=== PATIENT | male | born 1955 | race Caucasian/White ===

== ENCOUNTER 2016-12-08 05:46 | Day surgery (SDC) | payer OTHER ==
[2016-12-08] MEDS ORDERED: SODIUM CHLORIDE 0.9% 1,000 ML IV SCH (06:00)
[2016-12-08 06:21] VITALS: PULSE 66; RESP 16; TEMP 97.9
--- NOTE | 2016-12-08 08:56 | PN ---
This is a 61-year-old gentleman who has history of paroxysmal A. fib, was seen by me in the office on November 24, started on amiodarone because he was in A. fib with a moderate rate. He was symptomatic as well. He was brought in for the electrical cardioversion electively. However, upon arrival, he was in sinus rhythm. He also complaints of having some constipation since I started him on amiodarone 200 mg t.i.d. and also he was on diltiazem. Vital signs are stable. Blood pressure is 124/70, pulse rate is about 68 per minute. S1, S2 heard normally. Lungs are clear. Abdomen and lower extremity exam is unchanged. The patient is now in sinus rhythm. Will therefore canceled electrical cardioversion. I am recommending that we discontinue diltiazem, use metoprolol tartrate 25 mg in the morning, 12.5 mg in the evening and reduce amiodarone to 200 mg b.i.d. from December 14. I will obtain a FT4, TSH, and liver panel and I will see him in the office on 12/18/2016. I discussed my thoughts in detail with the patient and and he will be discharged today and the procedure is canceled.
== END 2016-12-08 07:42 | disposition home or self-care (01) ==
LOC: CATHCVL 05:46
PROVIDERS: ATTEND Internal Medicine Interventional Cardiology
DX: I48.0 Paroxysmal atrial fibrillation (principal); Z53.8 Procedure and treatment not carried out for other reasons; E78.00 Pure hypercholesterolemia, unspecified; I10 Essential (primary) hypertension; E78.5 Hyperlipidemia, unspecified; Z82.49 Family history of ischemic heart disease and other diseases of the circulatory system; Z79.01 Long term (current) use of anticoagulants; Z79.899 Other long term (current) drug therapy; Z88.1 Allergy status to other antibiotic agents; Z87.891 Personal history of nicotine dependence
CPT/HCPCS: 84075; 84439; 84443; 84450; 84460; 93005

== ENCOUNTER → 2018-07-12 | Day surgery (SDC) | payer OTHER ==
[2018-07-08 09:03] VITALS: BMI 26.8
[~2018-07-12] MED LIST: DEXAMETHASONE SOD PHOSPHATE 10 MG/ML 1 ML VIAL IV ONE; HYDROmorphone 0.5 MG/0.5 ML SYRINGE IVP PRN; LACTATED RINGERS 1,000 ML IV SCH; LIDOCAINE 1% 20 ML VIAL (10MG/ML) FOR IV START INTRADERMA PRN; ONDANSETRON 4 MG/2 ML VIAL IVP ONE; PROPOFOL 10 MG/ML 20 ML VIAL IV ONE; SCOPOLAMINE 1.5MG/72HR PATCH TRANSDERM ONE
[2018-07-12 06:53] VITALS: TEMP 97.8
[2018-07-12 07:28] VITALS: RESP 16
--- NOTE | 2018-07-12 08:03 | CE ---
CARDIAC ELECTROPHYSIOLOGY REPORT DATE OF SERVICE: 07/12/2018. DIAGNOSIS: Persistent atrial fibrillation. CLINICAL INDICATION: Persistent atrial fibrillation, unresponsive to pharmacological efforts. CLINICAL INFORMATION: Mr. Frank Cano is a 63-year-old gentleman with a history of hypertension, hyperlipidemia, and persistent atrial fibrillation. He has been adequately anticoagulated with Eliquis 5 mg b.i.d., started on amiodarone for nearly 3 to 4 weeks at 200 mg b.i.d. and brought in for the procedure electively. The rationale, risks, benefits, options were explained to the patient. PROCEDURE NOTE: Under the influence of ultra short-acting intravenous anesthetic agent with the attendance of the anesthesiologist, a single synchronized 200 joule shock was delivered and patient converted to sinus rhythm, remained hemodynamically stable and neurologically intact. This was a successful electrical cardioversion. He will be discharged later on today and I will see him in the office at 10 a.m. on Wednesday, July 15. Same medications will be continued, which include amiodarone 200 mg b.i.d., metoprolol tartrate 25 mg in the morning, 12.5 in the evening, pravastatin and also prior to his discharge I will get electrolytes, BUN, creatinine. He also takes lisinopril 10 mg daily. Discharge instructions regarding activity, diet, medications, and appointment were given. MMODL / IJN: [id number] /
[2018-07-12 08:43] LABS: Potassium 4.8 mmol/L (3.5-5.1)
[2018-07-12 10:11] VITALS: BP 119/77; PULSE 60
== END ==
LOC: CATHCVL 06:27
PROVIDERS: ATTEND Internal Medicine Interventional Cardiology
DX: I48.1 Persistent atrial fibrillation (principal); I10 Essential (primary) hypertension; E78.5 Hyperlipidemia, unspecified; Z82.49 Family history of ischemic heart disease and other diseases of the circulatory system; Z87.891 Personal history of nicotine dependence; E78.00 Pure hypercholesterolemia, unspecified; Z79.01 Long term (current) use of anticoagulants; Z79.899 Other long term (current) drug therapy; Z88.0 Allergy status to penicillin
CPT/HCPCS: 92960; 80048; J2704

== ENCOUNTER → 2018-07-19 | Outpatient (CLI) | payer OTHER ==
[2018-07-19 09:57] LABS: HCT 46.8 % (39.0-53.0); HGB 15.5 gm/dL (13.0-17.5); MCH 31.8 pg (25.0-35.0); MCHC 33.1 g/dL (31.0-37.0); MCV 96.2 fL (80.0-100.0); Mean Platelet Volume 7.4; Platelet Count 174 k/uL (150-450); RBC 4.86 m/uL (4.30-5.90); RDW 12.3 % (11.5-15.5); WBC 7.2 k/uL (3.8-10.6)
[2018-07-19 10:15] LABS: Magnesium 2.1 mg/dL (1.6-2.3); Potassium 4.7 mmol/L (3.5-5.1)
== END | disposition home or self-care (01) ==
LOC: LABPAT 09:18
PROVIDERS: ATTEND Internal Medicine Interventional Cardiology
DX: Z01.812 Encounter for preprocedural laboratory examination (principal); I48.1 Persistent atrial fibrillation; R07.89 Other chest pain
CPT/HCPCS: 36415; 80051; 82565; 82947; 83735; 84520; 85027

== ENCOUNTER 2018-07-25 07:40 | Day surgery (SDC) | payer OTHER ==
[2018-07-20 12:46] VITALS: BMI 26.6
[~2018-07-25 07:40] MED LIST changes: +ALPRAZolam 0.25 MG TAB PO PRN; +ASPIRIN 325 MG TAB PO ONE; +ATORVASTATIN 80 MG TAB PO STA; -DEXAMETHASONE SOD PHOSPHATE 10 MG/ML 1 ML VIAL IV ONE; -HYDROmorphone 0.5 MG/0.5 ML SYRINGE IVP PRN; -LACTATED RINGERS 1,000 ML IV SCH; -LIDOCAINE 1% 20 ML VIAL (10MG/ML) FOR IV START INTRADERMA PRN; -ONDANSETRON 4 MG/2 ML VIAL IVP ONE; -PROPOFOL 10 MG/ML 20 ML VIAL IV ONE; -SCOPOLAMINE 1.5MG/72HR PATCH TRANSDERM ONE; +SODIUM CHLORIDE 0.9% 1,000 ML in EMPTY BAG 1 BAG IV ONE
[2018-07-25 08:24] VITALS: PULSE 50; TEMP 97.6
[2018-07-25] MEDS ORDERED: IV FLUID CONTINUATION 1,000 ML IV ONE (09:00)
[2018-07-25] MEDS ORDERED: MIDAZOLAM 2 MG/2 ML VIAL IV ONE (09:02)
[2018-07-25] MEDS ORDERED: LIDOCAINE 1% INJ 10MG/ML (20 ML MDV) SQ ONE (09:06)
[2018-07-25] MEDS ORDERED: fentaNYL (PF) 50 MCG/ML 2 ML AMP IV ONE (09:07)
[2018-07-25] MEDS: VERAPAMIL SYRINGE (5 MG/10 ML) INTRAARTER ONE ×2 (09:08→09:28)
[2018-07-25] MEDS ORDERED: HEPARIN SODIUM 1,000 UN/ML (10ML VL) IV ONE (09:10)
[2018-07-25] MEDS ORDERED: NITROGLYCERIN 1000MCG/10ML SYRINGE INTRACORON ONE (09:12)
[2018-07-25] MEDS ORDERED: IOPAMIDOL-370 50ML BTL INJ ONE (09:24)
[2018-07-25] MEDS ORDERED: IOPAMIDOL-370 100ML BTL INJ ONE (09:25)
[2018-07-25] MEDS ORDERED: SODIUM CHLORIDE 0.9% 1,000 ML IV SCH (10:00)
--- NOTE | 2018-07-25 11:07 | CC ---
CARDIAC CATHETERIZATION REPORT DATE OF SERVICE: 07/25/2018. PROCEDURE: Left heart catheterization, coronary angiography and left ventriculography. PERFORMED BY: Dr. Guzman Justice. Moderate conscious sedation time was 20 minutes. Patient was administered Versed and fentanyl and his oxygen saturation, hemodynamics and EKG were monitored closely. CLINICAL INFORMATION: Mr. Frank Cano is a 63-year-old gentleman with a known history of paroxysmal atrial fibrillation, hypertension, hyperlipidemia, who has had electrical cardioversion and went back again into atrial fib. Because of some chest tightness, pressure and some EKG changes after cardioversion and prior to any EP evaluation, I recommended coronary angiography. Stress test was negative before, but he had wall motion abnormalities and hypokinesia whenever he goes into atrial fib. PROCEDURE NOTE: Under local anesthesia and strict aseptic precautions, a 6-Spanish introducer was placed in the right radial artery. I used a JL3.5 and JR4 catheters and performed coronary angiography and a pigtail catheter was used to perform LV gram. The sheath was taken out and TR band applied as per protocol. The saturation of the fingers of the right hand was more than 90%. CARDIAC CATHETERIZATION FINDINGS: The left ventricular end-diastolic pressure was about 10 to 12 mmHg without any gradient across the aortic valve. CORONARY ANGIOGRAPHY FINDINGS: RIGHT CORONARY ARTERY: Dominant vessel has no significant disease in the proximal portion. There is moderate calcification in the mid portion and distally it bifurcates into PDA and PLV. Just before bifurcation there is a 70% stenosis and after bifurcation the PDA has a independent 70% to 80% stenosis and the PLV has a 50% stenosis. There is therefore a 70% distal RCA, 80% PDA lesion and also a 40% to 50% lesion in the PLV branch. This is a dominant RCA. LEFT MAIN CORONARY ARTERY: Left main trifurcates into LAD, ramus and circumflex. This is a short patent vessel with mild to moderate calcification that bifurcates into LAD and circumflex. No significant disease in the left main coronary artery. LEFT ANTERIOR DESCENDING CORONARY ARTERY: Good caliber vessel extends along the anterior wall. In the very proximal portion of the LAD, there is a very eccentric area of narrowing and this is about 70%. This eccentric lesion is significant and also is located in an area of moderate calcification and after the 70% to 75% eccentric proximal LAD lesion a small septal branch comes off and then several smaller septal branches in the vessel runs all the way to the apex and curves over the apex to supply the inferoapical portion of left ventricle. There is a ramus intermedius branch that seems to come off and has minor irregularities. No significant obstructive disease and it runs in the diagonal distribution. The ramus intermedius runs in the diagonal distribution has minor irregularities and no significant disease. LEFT POSTERIOR CIRCUMFLEX CORONARY ARTERY: Technically nondominant vessel runs in the AV groove, gives off 2 obtuse marginal branches. The first obtuse marginal has a 70% narrowing smaller in caliber and then the second obtuse marginal continues as a posterolateral branch, free of significant disease. Continuation of circumflex in the AV groove has a 50% lesion, but it is a small vessel. The circumflex therefore has an obtuse marginal lesion of 70%, but the vessel is small in caliber. The ramus intermedius is free of significant disease has minor irregularities. LEFT VENTRICULOGRAM: This was performed in 30-degree SIMPSON projection reveals a left ventricle which is of normal size, has no significant wall motion abnormality. Ejection fraction is about 60% without mitral regurgitation. FINAL IMPRESSION: This patient has a right dominant system. Distal right coronary artery disease of 70%, PDA of 80% lesion of the right coronary artery. The circumflex is nondominant, has first OM small vessel has a 70% lesion. Proximal left anterior descending artery has a 70% to 80% eccentric proximal lesion. Ramus is free of significant disease. RECOMMENDATIONS: I presented the patient with both options. Given the fact he has a proximal LAD lesion, he will probably be better off with aortocoronary bypass surgery with the SIFUENTES to LAD and 2 separate vein grafts to the RCA system and also one graft possibly to the circumflex marginal. The ramus is free of significant disease. He will be seen by Dr. Jaquez today and if he has surgery, he should also have a Maze procedure performed. I discussed my thoughts in detail with the patient and his . They were somewhat disappointed because of the findings, but I explained to them that the LV function is well preserved and he will do very well with revascularization. MMODL / IJN: [id number] /
[2018-07-25 13:37] LABS: Calcium 9.3 mg/dL (8.4-10.2); Magnesium 2.2 mg/dL (1.6-2.3); Potassium 4.6 mmol/L (3.5-5.1); Total Bilirubin 0.8 mg/dL (0.2-1.3); Total Protein 6.9 g/dL (6.3-8.2)
[2018-07-25 13:39] LABS: Basophils % (A) 0 %; Eosinophils # (A) 0.1 k/uL (0-0.7); Eosinophils % (A) 1 %; HCT 44.6 % (39.0-53.0); HGB 15.1 gm/dL (13.0-17.5); Lymphocytes # (A) 1.4 k/uL (1.0-4.8); Lymphocytes % (A) 22 %; MCH 32.8 pg (25.0-35.0); MCHC 33.9 g/dL (31.0-37.0); MCV 96.8 fL (80.0-100.0); Mean Platelet Volume 7.7; Monocytes # (A) 0.3 k/uL (0-1.0); Monocytes % (A) 5 %; Neutrophils # (A) 4.4 k/uL (1.3-7.7); Neutrophils % (A) 69 %; Platelet Count 157 k/uL (150-450); RBC 4.61 m/uL (4.30-5.90); RDW 12.2 % (11.5-15.5); WBC 6.4 k/uL (3.8-10.6)
[2018-07-25 13:47] LABS: Partial Thromboplastin Time 24.2 sec (22.0-30.0); Prothrombin Time 10.5 sec (9.0-12.0)
--- NOTE | 2018-07-25 14:53 | US ---
EXAMINATION TYPE: US carotid duplex BILAT DATE OF EXAM: 07/25/2018 COMPARISON: NONE CLINICAL HISTORY: PreOp Cardiac Surgery. Pre op cardiac surgery, dizziness EXAM MEASUREMENTS: RIGHT: Peak Systolic Velocity (PSV) cm/sec ----- Right CCA: 97.4 ----- Right ICA: 97.4 ----- Right ECA: 111.7 ICA/CCA ratio: 1.0 RIGHT: End Diastole cm/sec ----- Right CCA: 22.6 ----- Right ICA: 27.0 ----- Right ECA: 14.9 LEFT: Peak Systolic Velocity (PSV) cm/sec ----- Left CCA: 93.1 ----- Left ICA: 87.6 ----- Left ECA: 114.7 ICA/CCA ratio: 0.9 LEFT: End Diastole cm/sec ----- Left CCA: 20.5 ----- Left ICA: 24.9 ----- Left ECA: 15.0 VERTEBRALS (direction of flow): Right Vertebral: Antegrade Left Vertebral: Antegrade Rhythm: Normal Mild to moderate plaque bilateral bifurcations. No evidence of significant stenosis IMPRESSION: 1. Mild/moderate atherosclerotic changes with no significant hemodynamic stenosis by carotid duplex u ltrasound. Criteria for Assigning % of Stenosis / Diameter reduction (Estimation based on the indirect measurements of the internal carotid artery velocities (ICA PSV). 1. Normal (no stenosis)=ICA PSV < 125 cm/s: ratio < 2.0: ICA EDV<40 cm/s. 2. Less than 50% stenosis=ICA PSV < 125 cm/s: ratio < 2.0: ICA EDV<40 cm/s. 3. 50 to 69% stenosis=ICA PSV of 125 to 230 cm/s: ration 2.0 ? 4.0: ICA EDV 40-100 cm/s. 4. Greater than 70% stenosis to near occlusion= ICA PSV > 230 cm/s: ratio > 4.0: ICA EDV > 100 cm/s. 5. Near occlusion= ICA PSV velocities may be low or undetectable: variable ratio and ICA EDV. 6. Total occlusion=unable to detect flow.
--- NOTE | 2018-07-25 15:58 | P.GSCN ---
History of Present Illness Consult date: 07/25/18 Reason for Consult: Multivessel coronary artery disease. Requesting physician: Melina Justice History of present illness: This is a 63-year-old gentleman who is followed by Dr. Paddy Andrews on an outpatient basis. The patient has a past medical history significant for hypertension, hyperlipidemia, persistent paroxysmal atrial fibrillation status post cardioversion on 07/12/2018, family history of early onset coronary artery disease with one of his brothers passing away at age 30 from a myocardial infarction, previous tobacco dependence quit in 1974 and obstructive sleep apnea with CPAP use at home. Due to the patient's atrial fibrillation he has been following with Dr. THOMAS Justice from [facility]. During his last office visit the patient remained in atrial fibrillation and underwent a successful cardioversion on 07/12/2018. During his follow-up visit a couple of days post cardioversion he was found to be back in atrial fibrillation. The Patient reports he is very active and walks about 2-3 miles a day. He denies any complaints of chest pain, shortness of breath, nausea or vomiting, fever or syncope. Dr. THOMAS Justice advised the patient to undergo a coronary angiography and today 07/25/2018 after obtaining consent he underwent an elective heart catheterization which demonstrated a 75% stenosis to his proximal left anterior descending coronary artery, a 50% stenosis to a circumflex coronary artery, 70% stenosis to his obtuse marginal coronary artery #1, 70% stenosis to his right coronary artery, 80% stenosis to his posterior descending coronary artery, and a 50% stenosis to his posterior lateral branch. Also during heart catheterization a left ventriculogram was completed which demonstrated a normal left ventricular size with no significant wall motion abnormality and an ejection fraction of 60% without mitral valve regurgitation. Due to the patient 's cardiac catheterization results a consult was placed to Dr. Matthew Jaquez cardiothoracic surgery for recommendations on myocardial revascularization surgery. Review of Systems A 14 point review of systems was completed and was negative except as mentioned in the HPI. Past Medical History Past Medical History: Atrial Fibrillation, Hyperlipidemia, Hypertension, Sleep Apnea/CPAP/BIPAP History of Any Multi-Drug Resistant Organisms: None Reported Past Surgical History: Orthopedic Surgery Additional Past Surgical History / Comment(s): COLONOSCOPY, RT ANKLE SX, SINUS SX, Cardioversion 07/12/2018, Lasix eye surgery. Past Anesthesia/Blood Transfusion Reactions: No Reported Reaction Past Psychological History: No Psychological Hx Reported Smoking Status: Former smoker (Quit smoking in 1974.) Past Alcohol Use History: Occasional (Reports he drinks about 6 beers a week.) Past Drug Use History: None Reported - Past Family History Mother Family Medical History: Congestive Heart Failure (CHF) Brother(s) Family Medical History: Myocardial Infarction ([place]) (Past away from a myocardial infarction at age 30.) Sister(s) Family Medical History: Congestive Heart Failure (CHF) Medications and Allergies Home Medications Medication Instructions Recorded Confirmed Type Amiodarone [Cordarone] 200 mg PO BID 12/07/16 07/20/18 History Apixaban [Eliquis] 5 mg PO BID 12/07/16 07/25/18 History Lisinopril 10 mg PO DAILY 12/07/16 07/20/18 History Pravastatin Sodium [Pravachol] 80 mg PO HS 12/07/16 07/20/18 History Metoprolol Tartrate [Lopressor] 12.5 mg PO HS 12/08/16 07/20/18 History Metoprolol Tartrate [Lopressor] 25 mg PO DAILY 12/08/16 07/20/18 History Aspirin 325 mg PO ONCE 07/25/18 07/25/18 History Allergies Allergy/AdvReac Type Severity Reaction Status Date / Time amoxicillin [From Augmentin] AdvReac Diarrhea Verified 07/20/18 12:38 clavulanic acid AdvReac Diarrhea Verified 07/20/18 12:38 [From Augmentin] Surgical - Exam Vital Signs Temp Pulse Resp BP Pulse Ox 97.6 F 50 L 20 155/78 97 07/25/18 08:21 07/25/18 08:21 07/25/18 08:21 07/25/18 08:21 07/25/18 08:21 - General well developed, well nourished, no distress, no pain - Eyes PERRL, normal ocular movement - ENT normal pinna, normal nares, normal mucosa, no hearing loss, no congestion - Neck Neck is supple, no lymphadenopathy. no masses, no bruits, trachea midline, no venous distension - Respiratory Lung sounds are essentially clear throughout. Respirations are symmetrical and nonlabored. Saturations are 97% on room air. - Cardiovascular Regular rhythm and bradycardic rate. S1 and S2 present, positive systolic murmur 1/6. No edema present. Bedside telemetry is demonstrating sinus bradycardia heart rate 54. - Abdomen Abdomen is soft, nontender and nondistended. Active bowel sounds to all 4 abdominal quadrants. No guarding or rigidity. No organomegaly. - Genitourinary Deferred - Rectum Deferred - Integumentary no rash, no growths, no abnormal pigmentation - Neurologic normal coordination, normal sensation - Musculoskeletal normal gait, normal posture - Psychiatric oriented to time, oriented to person, oriented to place, speech is normal, memory intact Results - Labs 07/25/18 12:44 07/25/18 12:44 - Imaging Comments: Cardiac catheterization results reviewed. Assessment and Plan (1) Hypertension Current Visit: Yes Status: Acute Code(s): I10 - ESSENTIAL (PRIMARY) HYPERTENSION SNOMED Code(s): 79813209 (2) Dyslipidemia Current Visit: Yes Status: Acute Code(s): E78.5 - HYPERLIPIDEMIA, UNSPECIFIED SNOMED Code(s): 907394013 (3) Family history of coronary artery disease in brother Current Visit: Yes Status: Acute Code(s): Z82.49 - FAMILY HX OF ISCHEM HEART DIS AND OTH DIS OF THE CIRC SYS SNOMED Code(s): 167421327 (4) History of nicotine dependence Current Visit: Yes Status: Acute Code(s): Z87.891 - PERSONAL HISTORY OF NICOTINE DEPENDENCE SNOMED Code(s): 373579871 (5) Obstructive sleep apnea on CPAP Current Visit: Yes Status: Acute Code(s): G47.33 - OBSTRUCTIVE SLEEP APNEA ( ADULT) (PEDIATRIC); Z99.89 - DEPENDENCE ON OTHER ENABLING MACHINES AND DEVICES SNOMED Code(s): 19670594 (6) Coronary artery disease Current Visit: Yes Status: Acute Code(s): I25.10 - ATHSCL HEART DISEASE OF [place] CORONARY ARTERY W/O ANG PCTRS SNOMED Code(s): 70716285 Plan: The patient was seen and examined. His chart and diagnostics were reviewed. This case was discussed with Dr. Jaquez from cardiothoracic surgery. Dr. Jaquez has seen and examined the patient. Preoperative testing has been initiated, preoperative teaching has been initiated. A 5 m walk test was completed, time 1: 3.71 seconds, time 2: 2.90 seconds, time 3: 2.43 seconds. Bedside FEV1 was completed which demonstrated a FEV1 83% of predicted. Consult to Dr. ELBA Justice for pulmonary clearance. Dr. Jaquez discussed the risks and benefits and the STS was score for myocardial revascularization with the patient and his . The patient wishes to proceed with elective myocardial revascularization surgery which will be scheduled on 07/20/2018. He will be scheduled for myocardial revascularization, with SIFUENTES, left radial artery endoscopic harvesting, exclusion of his left atrial appendage, and bilateral pulmonary vein isolation. The patient has been instructed to discontinue his Eliquis tomorrow 07/26/2018 after his second dose. He is also been instructed to take an aspirin 81 mg by mouth daily. Thank you Dr. Justice for this consult and we look for to working with you in the care of your patient. Time with Patient: Greater than 30
[2018-07-25 16:10] LABS: Appearance,Urine Clear (Clear); Bilirubin,Urine Negative (Negative); Blood,Urine Negative (Negative); Color,Urine Yellow; Glucose,Urine (UA) Negative (Negative); Ketones,Urine Negative (Negative); Leukocyte Esterase,Urine Negative (Negative); Nitrite,Urine Negative (Negative); Protein,Urine Negative (Negative); Specific Gravity,Urine 1.027 (1.001-1.035)
[2018-07-25 17:19] VITALS: RESP 18
[2018-07-25 17:28] VITALS: BP 156/72
--- NOTE | 2018-07-25 18:28 | XR ---
EXAMINATION TYPE: XR chest 2V DATE OF EXAM: 07/25/2018 COMPARISON: NONE HISTORY: Preop bypass surgery TECHNIQUE: Frontal and lateral views of the chest are obtained. FINDINGS: Heart and mediastinum are normal. Lungs are clear. Diaphragm is normal. Bony thorax is nor mal. There are chest leads. IMPRESSION: No active cardiopulmonary disease. Calcified granuloma is noted in the left midlung.
[2018-07-25 21:56] LABS: Hemoglobin A1C 5.8 % (4.0-6.0)
--- NOTE | 2018-07-27 09:15 | P.VSCSTY ---
Greater Saphenous Vein Mapping This is bilateral lower extremity greater saphenous vein mapping. Date of service 07/25/2018 Vein quality and ultrasound appearance no intraluminal thrombus or wall changes are seen. Vein size groin right 5.0 x 5.3 groin left 6.9 x 6.5 High thigh right 4.0 x 4.0 high thigh left 4.3 x 4.4 Mid thigh right 3.3 x 3.6 mid thigh left 4.0 x 4.8 Above-knee right 3.9 x 5.2 above- knee left 4.6 x 6.1 Below knee right 4.2 x 5.0 below-knee left 3.9 x 4.3 Mid calf right to 2.8 x 3.4 mid calf left 2.4 x 3.0 Ankle right 2.5 x 3.2 ankle left 2.0 x 2.8 Impression usable bilateral greater saphenous vein.
--- NOTE | 2018-07-27 09:16 | P.ARTDOP ---
Arterial Doppler LOWER EXTREMITY ARTERIAL DOPPLER: DATE OF SERVICE: 07/25/2018 Reason for study: Preop CABG. Doppler waveforms: Multiphasic bilaterally throughout. Pulse volume recording: []. Pressure gradients: None. Ankle-brachial indices: Greater than 1 bilaterally. Toe pressures: [] on the right, [] on the left Impression: Normal study.
--- NOTE | 2018-07-27 12:14 | ECHOF ---
Referral Reason:Pre op cardiac surgery. MEASUREMENTS -------- HEIGHT: 177.8 cm WEIGHT: 83.9 kg BP: 134/60 RVIDd: 3.0 cm (< 3.3) IVSd: 0.8 cm (0.6 - 1.1) LVIDd: 4.5 cm (3.9 - 5.3) LVPWd: 0.9 cm (0.6 - 1.1) IVSs: 1.3 cm LVIDs: 2.6 cm LVPWs: 1.3 cm LAESV Index (A-L): 32.30 ml/m Ao Diam: 4.0 cm (2.0 - 3.7) AV Cusp: 1.9 cm (1.5 - 2.6) LA Diam: 2.9 cm (2.7 - 3.8) EPSS: 0.8 cm MV E Yusuf: 1.10 m/s MV DecT: 232 ms MV A Yusuf: 0.66 m/s MV E/A Ratio: 1.67 AR PHT: 467 ms RAP: 5.00 mmHg RVSP: 28.50 mmHg MV EF SLOPE: 87.40 mm/s (70 - 150) MV EXCURSION: 1.35 cm (> 18.000) FINDINGS -------- Resting bradycardia (HR<60bpm). This was a technically adequate study. The left ventricular size is normal. Left ventricular wall thickness is normal. Overall left vent ricular systolic function is low-normal with, an EF between 50 - 55 %. The right ventricle is normal in size and function. LA is midly dilated 29-33ml/m2. The right atrium is normal in size. There is mild aortic valve sclerosis. There is mild aortic regurgitation. There is no evidence of aortic stenosis. The mitral valve leaflets are mildly thickened. Mild mitral regurgitation is present. Trace tricuspid regurgitation present. Right ventricular systolic pressure is normal at < 35 mmHg. There is no evidence of pulmonary hypertension. Trace/mild (physiologic) pulmonic regurgitation. The aortic root is mildy dilated up to 4.0 cm. Ascending aortic size is normal. Normal inferior vena cava with normal inspiratory collapse consistent with estimated right atrial pre ssure of 5 mmHg. There is no pericardial effusion. CONCLUSIONS -------- 1. Resting bradycardia (HR<60bpm). 2. This was a technically adequate study. 3. The left ventricular size is normal. 4. Left ventricular wall thickness is normal. 5. Overall left ventricular systolic function is low-normal with, an EF between 50 - 55 %. 6. LA is midly dilated 29-33ml/m2. 7. There is mild aortic valve sclerosis. 8. There is mild aortic regurgitation. 9. The mitral valve leaflets are mildly thickened. 10. Mild mitral regurgitation is present. 11. Trace tricuspid regurgitation present. 12. Right ventricular systolic pressure is normal at < 35 mmHg. 13. There is no evidence of pulmonary hypertension. 14. Trace/mild (physiologic) pulmonic regurgitation. 15. The aortic root is mildy dilated up to 4.0 cm. 16. Ascending aortic size is normal. 17. There is no pericardial effusion. [employer]ENT: Fidel Webb RDCS
== END 2018-07-25 16:00 | disposition home or self-care (01) ==
LOC: CATHCVL 07:40
PROVIDERS: ATTEND Internal Medicine Interventional Cardiology
DX: I25.110 Atherosclerotic heart disease of native coronary artery with unstable angina pectoris (principal); J84.10 Pulmonary fibrosis, unspecified; I48.1 Persistent atrial fibrillation; I48.0 Paroxysmal atrial fibrillation; E78.00 Pure hypercholesterolemia, unspecified; E78.5 Hyperlipidemia, unspecified; I10 Essential (primary) hypertension; G47.33 Obstructive sleep apnea (adult) (pediatric); Z99.89 Dependence on other enabling machines and devices; Z79.01 Long term (current) use of anticoagulants; Z79.899 Other long term (current) drug therapy; Z79.82 Long term (current) use of aspirin; Z87.891 Personal history of nicotine dependence; Z82.49 Family history of ischemic heart disease and other diseases of the circulatory system; Z88.0 Allergy status to penicillin
CPT/HCPCS: 94150; 93306; 93458; 83880; 80061; 80053; 84443; 83735; 84484; 85025; 85610; 85730; 81003; 87070; 87086; 83036; 71046; 93970; 93923; 93880; C1894; J2250; J2001; J3010; J1644; Q9967 ×2; 80074; 86850; 86900; 86901

== ENCOUNTER 2018-07-29 05:31 | Inpatient (IN) | payer OTHER ==
[2018-07-25 19:35] LABS: Hepatitis A Antibody IgM Non-Reactive (Non-Reactive); Hepatitis B Core IgM Non-Reactive (Non-Reactive)
[~2018-07-29 05:31] MED LIST changes: +ALBUMIN HUMAN 25% 50 ML IV ONE; -ALPRAZolam 0.25 MG TAB PO PRN; -ASPIRIN 325 MG TAB PO ONE; +ASPIRIN 81 MG PO ONE; +ATORVASTATIN 10 MG TAB PO ONE; -ATORVASTATIN 80 MG TAB PO STA; +CALCIUM CHLORIDE 100 MG/ML 10 ML SYRINGE IV ONE; +CHLORHEXIDINE GLUCONATE 15 ML CUP MUCOUS MEM ONE; +CLEVIDIPINE BUTYRATE 25 MG in EMPTY BAG 1 BAG IV ONE; +DEXTROSE 5% IN WATER 1,000 ML with POTASSIUM CHLORIDE 110 MEQ, MAGNESIUM SULFATE 16 MEQ... IV ONE; +DEXTROSE 5% IN WATER 1,000 ML with POTASSIUM CHLORIDE 25 MEQ, SODIUM CHLORIDE 2.5MEQ/ML... IRRIGATION ONE; +HEPARIN SODIUM 1,000 UN/ML (10ML VL) IV ONE; +HEPARIN SODIUM,PORCINE 5,000 UNIT in SODIUM CHLORIDE 0.9% 500 ML 500 ML IV ONE; +INSULIN REGULAR 100 UNIT in SODIUM CHLORIDE 0.9% 100 ML IV ONE; +LACTATED RINGERS 1,000 ML IV ONE; +MAGNESIUM SULFATE MG 500 MG/ML IV ONE; +MANNITOL 25% 12.5 GM/50 ML VIAL IV ONE; +METOPROLOL TARTRATE 12.5 MG TAB PO ONE; +NITROGLYCERIN-D5W PMX 25 MG/250 ML BTL IV ONE; +NITROGLYCERIN-D5W PMX 50 MG in DEXTROSE/WATER 1 250ML.BAG IV ONE; +NOREPINEPHRINE 4 MG in SODIUM CHLORIDE 0.9% 250 ML IV ONE; +PAPAVERINE 360 MG in SODIUM CHLORIDE 0.9% 90 ML IV ONE; +PHENYLEPHRINE 40 MG in SODIUM CHLORIDE 0.9% 250 ML IV ONE; +PHENYLEPHRINE-0.9% NACL SYG 1 MG/10 ML SYRINGE IV ONE; +PROPOFOL 1,000 MG/100 ML VIAL IV ONE; +PROTAMINE SULFATE 10 MG/ML 25 ML VIAL IV ONE; +PROTAMINE SULFATE 250 MG in EMPTY BAG 1 BAG IV ONE; +SODIUM BICARB 8.4% 50 ML SYR (1 MEQ/ML) IV ONE; +SODIUM CHLORIDE 0.9% 1,000 ML IV ONE; -SODIUM CHLORIDE 0.9% 1,000 ML in EMPTY BAG 1 BAG IV ONE; +TRANEXAMIC ACID 2,000 MG in SODIUM CHLORIDE 0.9% 180 ML IV ONE; +ceFAZolin 1,000 MG in SODIUM CHLORIDE 0.9% IRRIGATIO 1,000 ML IRRIGATION ONE; +ceFAZolin 2,000 MG in SODIUM CHLORIDE 0.9% 30 ML IVPB ONE; +ceFAZolin IN SWFI 2 GM/20 ML SYRINGE IVP ONE
[2018-07-29] MEDS ORDERED: MIDAZOLAM (PF) 2 MG/2 ML VIAL IV PRN (05:43)
[2018-07-29] MEDS ORDERED: LACTATED RINGERS 1,000 ML IV SCH (05:43)
[2018-07-29] MEDS ORDERED: fentaNYL (PF) 50 MCG/ML 2 ML AMP ONE (08:00)
[2018-07-29] MEDS ORDERED: SODIUM CHLORIDE 0.9% IRRIG 1,000 ML BTL IRRIGATION ONE (08:00)
[2018-07-29] MEDS ORDERED: SODIUM CHLORIDE 0.9% 250 ML BAG ONE (08:00)
[2018-07-29] MEDS ORDERED: TRANEXAMIC ACID 1,000 MG/10 ML VIAL ONE (08:00)
[2018-07-29] MEDS ORDERED: LIDOCAINE 2% SYG (PF) 100 MG/5 ML ONE (08:00)
[2018-07-29] MEDS ORDERED: MAGNESIUM SULFATE 4 MEQ/ML 10ML VIAL ONE (08:00)
[2018-07-29] MEDS ORDERED: ELECTROLYTE-R (PH 7.4) 1,000 ML IV.SOLN IV ONE (08:00)
[2018-07-29] MEDS ORDERED: VECURONIUM 10 MG VIAL IV ONE (08:00)
[2018-07-29] MEDS ORDERED: HEPARIN SODIUM,PORCINE 10,000 UNIT/ML 1 ML VIAL ONE (08:00)
[2018-07-29] MEDS ORDERED: PROPOFOL 10 MG/ML 20 ML VIAL IV ONE (08:00)
[2018-07-29] MEDS ORDERED: PROTAMINE SULFATE 10 MG/ML 25 ML VIAL IV ONE (08:00)
[2018-07-29] MEDS ORDERED: MIDAZOLAM 2 MG/2 ML VIAL ONE (08:00)
[2018-07-29] MEDS ORDERED: fentaNYL (PF) 50 MCG/ML 50 ML VIAL ONE (08:00)
[2018-07-29 08:40] LABS: ABG Base Excess -0.8 mmol/L; ABG HCO3 24 mmol/L (21-25); ABG Oxygen Saturation 99.8 % (94-97); ABG PCO2 37 mmHg (35-45); ABG PH 7.41 (7.35-7.45); ABG PO2 386 mmHg (83-108); ABG Potassium Whole Blood 4.4 mmol/L (3.4-4.5); ABG Sodium Whole Blood 139 mmol/L (135-146); ABG TCO2 25 mmol/L (19-24)
[2018-07-29 10:24] LABS: ABG Base Excess -1.5 mmol/L; ABG HCO3 25 mmol/L (21-25); ABG Oxygen Saturation 99.6 % (94-97); ABG PCO2 46 mmHg (35-45); ABG PH 7.34 (7.35-7.45); ABG PO2 247 mmHg (83-108); ABG Potassium Whole Blood 4.4 mmol/L (3.4-4.5); ABG Sodium Whole Blood 139 mmol/L (135-146); ABG TCO2 26 mmol/L (19-24)
[2018-07-29] MEDS ORDERED: METHYLENE BLUE 10 MG/ML (10 ML VIAL) IV ONE (10:29)
[2018-07-29 11:11] LABS: ABG Base Excess -1.7 mmol/L; ABG HCO3 23 mmol/L (21-25); ABG Oxygen Saturation 99.8 % (94-97); ABG PCO2 40 mmHg (35-45); ABG PH 7.38 (7.35-7.45); ABG PO2 382 mmHg (83-108); ABG Potassium Whole Blood 4.4 mmol/L (3.4-4.5); ABG Sodium Whole Blood 135 mmol/L (135-146); ABG TCO2 25 mmol/L (19-24)
[2018-07-29 11:40] LABS: ABG Base Excess -1.5 mmol/L; ABG HCO3 24 mmol/L (21-25); ABG Oxygen Saturation 99.8 % (94-97); ABG PCO2 42 mmHg (35-45); ABG PH 7.36 (7.35-7.45); ABG PO2 336 mmHg (83-108); ABG Potassium Whole Blood 5.3 mmol/L (3.4-4.5); ABG Sodium Whole Blood 134 mmol/L (135-146); ABG TCO2 25 mmol/L (19-24)
[2018-07-29 13:02] LABS: ABG Base Excess -2.7 mmol/L; ABG HCO3 24 mmol/L (21-25); ABG Oxygen Saturation 93.5 % (94-97); ABG PCO2 48 mmHg (35-45); ABG PH 7.31 (7.35-7.45); ABG PO2 70 mmHg (83-108); ABG Potassium Whole Blood 4.1 mmol/L (3.4-4.5); ABG Sodium Whole Blood 138 mmol/L (135-146); ABG TCO2 25 mmol/L (19-24)
[2018-07-29] MEDS ORDERED: BENZOCAINE/MENTHOL LOZENG 1 EACH LOZENGE MUCOUS MEM PRN (13:24)
[2018-07-29] MEDS ORDERED: Magnesium Replacement Protocol 1 EACH MISC MISCELLANE PRN (13:24)
[2018-07-29] MEDS ORDERED: DEXTROSE 5% IN WATER 100 ML with AMIODARONE 150 MG IV PRN (13:24)
[2018-07-29] MEDS ORDERED: PROPOFOL 1,000 MG in EMPTY BAG 1 BAG IV SCH (13:24)
[2018-07-29] MEDS ORDERED: INSULIN REGULAR 100 UNIT in SODIUM CHLORIDE 0.9% 100 ML IV SCH (13:24)
[2018-07-29] MEDS ORDERED: Phosphorus Replacement Protoco 1 EACH MISC MISCELLANE PRN (13:24)
[2018-07-29] MEDS ORDERED: Potassium Replacement Protocol 1 EACH MISC MISCELLANE PRN (13:24)
[2018-07-29] MEDS ORDERED: CALCIUM CHLORIDE 1,000 MG in SODIUM CHLORIDE 0.9% 100 ML IV PRN (13:24)
[2018-07-29] MEDS ORDERED: METOCLOPRAMIDE 5 MG/ML 2 ML VIAL IVP PRN (13:24)
[2018-07-29] MEDS ORDERED: IPRATROPIUM-ALBUTEROL 3 ML NEB INHALATION PRN (13:24)
[2018-07-29] MEDS ORDERED: MORPHINE SULFATE 2 MG/ML SYRINGE IVP PRN (13:24)
[2018-07-29] MEDS ORDERED: AMIODARONE 450 MG in DEXTROSE 5% IN WATER 250 ML IV PRN ×2 (13:24)
[2018-07-29] MEDS: LACTATED RINGERS 1,000 ML IV SCH (14:00)
[2018-07-29] MEDS: NITROGLYCERIN-D5W PMX 50 MG in DEXTROSE/WATER 1 250ML.BAG IV SCH (14:00)
--- NOTE | 2018-07-29 14:16 | XR ---
EXAMINATION TYPE: XR chest 1V portable DATE OF EXAM: 07/29/2018 COMPARISON: 07/25/2018 HISTORY: Postop cardiac surgery TECHNIQUE: Single frontal view of the chest is obtained. FINDINGS: There is a Victor-Anum catheter with the tip overlying the proximal pulmonary outflow tract. ET tube approximately 3.7 cm above the jenny. Bilateral chest tubes are noted. Suggestion of an epi cardial lead and mediastinal drain. Postsurgical changes are seen. No sizable pneumothorax. Bilateral areas of consolidation and pleural effusion are noted in the heart is mildly enlarged. Nodule left upper lobe again noted. IMPRESSION: 1. Postsurgical changes with bilateral suspected postoperative atelectasis correlate clinically to ex clude infiltrate. 2. Bilateral small effusion and mild central venous congestion.
[2018-07-29 14:17] LABS: ABG HCO3 24 mmol/L (21-25); ABG Oxygen Saturation 99.2 % (94-97); ABG PCO2 41 mmHg (35-45); ABG PH 7.38 (7.35-7.45); ABG PO2 127 mmHg (83-108); ABG TCO2 26 mmol/L (19-24)
[2018-07-29 14:19] LABS: Glucose,Whole Blood 109 mg/dL (75-99)
[2018-07-29 14:34] LABS: Basophils % (A) 0 %; Eosinophils # (A) 0.1 k/uL (0-0.7); Eosinophils % (A) 1 %; HCT 33.6 % (39.0-53.0); Lymphocytes # (A) 0.6 k/uL (1.0-4.8); Lymphocytes % (A) 6 %; MCH 32.5 pg (25.0-35.0); MCHC 33.8 g/dL (31.0-37.0); MCV 96.3 fL (80.0-100.0); Mean Platelet Volume 7.7; Monocytes # (A) 0.5 k/uL (0-1.0); Monocytes % (A) 5 %; Neutrophils # (A) 10.2 k/uL (1.3-7.7); Neutrophils % (A) 89 %; Platelet Count 110 k/uL (150-450); RBC 3.49 m/uL (4.30-5.90); RDW 12.2 % (11.5-15.5); WBC 11.5 k/uL (3.8-10.6)
[2018-07-29 14:37] LABS: INR 1.2 (<1.2); Partial Thromboplastin Time 37.8 sec (22.0-30.0); Prothrombin Time 12.1 sec (9.0-12.0)
[2018-07-29 14:41] LABS: HGB 11.3 gm/dL (13.0-17.5)
[2018-07-29 14:44] LABS: Ionized Calcium 4.7 mg/dL (4.5-5.3)
--- NOTE | 2018-07-29 14:56 | P.CNPUL ---
History of Present Illness Consult date: 07/29/18 Chief complaint: Critical care/ventilator management History of present illness: 60-year-old male was sees Dr. Thomason for outpatient activity related to hypertension hypertensive cardiovascular disease dyslipidemia, patient also has history of chronic paroxysmal atrial fibrillation, patient was cardioverted earlier this month, patient does have sleep disorder breathing and sleep apnea has been using CPAP machine at home, patient underwent a cardiac cath and angiogram which revealed 75% of stenosis of LAD, 50% narrowing of circumflex, 70 persisted. He is marginal, and 70% RCA, patient has 50% blockage in posterior lateral branch as well, data predominantly has been obtained from the chart, as patient is not able to give a detailed history patient does have a remote history of smoking, from a pulmonary standpoint has sleep disorder breathing and sleep apnea he has been using sleep Pap machine a regular basis, no history of cough or respiratory process in the past Review of Systems ROS unobtainable: due to endotracheal tube Past Medical History Past Medical History: Atrial Fibrillation, Hyperlipidemia, Hypertension, Sleep Apnea/CPAP/BIPAP Additional Past Medical History / Comment(s): uses CPAP History of Any Multi-Drug Resistant Organisms: None Reported Past Surgical History: Heart Catheterization, Orthopedic Surgery Additional Past Surgical History / Comment(s): COLONOSCOPY, RT ANKLE SX, SINUS SX, Cardioversion 07/12/2018, Lasix eye surgery. Past Anesthesia/Blood Transfusion Reactions: No Reported Reaction Smoking Status: Former smoker - Past Family History Mother Family Medical History: Congestive Heart Failure (CHF) Brother(s) Family Medical History: Myocardial Infarction (NH) Sister(s) Family Medical History: Congestive Heart Failure (CHF) Medications and Allergies Home Medications Medication Instructions Recorded Confirmed Type Amiodarone [Cordarone] 200 mg PO BID 12/07/16 07/29/18 History Apixaban [Eliquis] 5 mg PO BID 12/07/16 07/29/18 History Lisinopril 10 mg PO DAILY 12/07/16 07/29/18 History Pravastatin Sodium [Pravachol] 80 mg PO HS 12/07/16 07/29/18 History Metoprolol Tartrate [Lopressor] 12.5 mg PO HS 12/08/16 07/29/18 History Metoprolol Tartrate [Lopressor] 25 mg PO DAILY 12/08/16 07/29/18 History Aspirin EC [Ecotrin Low Dose] 81 mg PO DAILY 07/29/18 07/29/18 History Allergies Allergy/AdvReac Type Severity Reaction Status Date / Time amoxicillin [From Augmentin] AdvReac Diarrhea Verified 07/29/18 14:18 atorvastatin [From Lipitor] AdvReac Unknown Verified 07/29/18 14:18 clavulanic acid AdvReac Diarrhea Verified 07/29/18 14:18 [From Augmentin] Physical Exam Vitals: Vital Signs Temp Pulse Resp BP BP Pulse Ox 07/29/18 06:02 97.0 F L 51 L 16 158/88 158/77 96 Intake and Output 07/28/18 07/29/18 07/29/18 22:59 06:59 14:59 Intake Total 3 Output Total 2100 Balance -2096 Intake: IV 3 Output: Urine 600 Estimated Blood Loss 1500 Other: Weight 84.83 kg - Constitutional General appearance: average body habitus, obese - EENT Eyes: PERRLA Ears: bilateral: normal - Neck Neck: normal ROM Carotids: bilateral: upstroke normal Thyroid: bilateral: normal size - Respiratory Respiratory: bilateral: CTA (Intubated on ventilator, O2 as well as low down to 50%) - Cardiovascular Heart sounds: normal: S1, S2 - Neurologic Sedated with propofol drip Results - Laboratory Findings CBC and BMP: 07/29/18 14:02 ABG ABG pH 7.38 (7.35-7.45) 07/29/18 14:14 ABG pCO2 41 mmHg (35-45) 07/29/18 14:14 ABG pO2 127 mmHg (83-108) H 07/29/18 14:14 ABG O2 Saturation 99.2 % (94-97) H 07/29/18 14:14 PT/INR, D-dimer PT 12.1 sec (9.0-12.0) H 07/29/18 14:02 INR 1.2 (<1.2) H 07/29/18 14:02 Abnormal lab findings: Abnormal Labs 07/25/18 07/29/18 07/29/18 12:44 08:38 10:23 WBC RBC Hgb Hct Plt Count Neutrophils # Lymphocytes # PT INR APTT ABG pH 7.34 L ABG pCO2 46 H ABG pO2 386 H 247 H ABG Total CO2 25 H 26 H ABG O2 Saturation 99.8 H 99.6 H ABG Hematocrit ABG Sodium ABG Potassium ABG Ionized Calcium ABG Glucose 123 H ABG Lactic Acid Hemoglobin POC Glucose (mg/dL) Arterial Blood Potassium Arterial Blood Glucose 123 H Crossmatch See Detail 07/29/18 07/29/18 07/29/18 11:09 11:39 13:01 WBC RBC Hgb Hct Plt Count Neutrophils # Lymphocytes # PT INR APTT ABG pH 7.31 L ABG pCO2 48 H ABG pO2 382 H 336 H 70 L ABG Total CO2 25 H 25 H 25 H ABG O2 Saturation 99.8 H 99.8 H 93.5 L ABG Hematocrit 32 L 31 L 31 L ABG Sodium 134 L ABG Potassium 5.3 H ABG Ionized Calcium 4.1 L 4.2 L 4.1 L ABG Glucose 122 H 197 H 132 H ABG Lactic Acid 2.1 H Hemoglobin 10.6 L 10.1 L 10.0 L POC Glucose (mg/dL) Arterial Blood Potassium 5.3 H Arterial Blood Glucose 122 H 197 H 132 H Crossmatch 07/29/18 07/29/18 07/29/18 14:02 14:02 14:03 WBC 11.5 H RBC 3.49 L Hgb 11.3 L D Hct 33.6 L Plt Count 110 L Neutrophils # 10.2 H Lymphocytes # 0.6 L PT 12.1 H INR 1.2 H APTT 37.8 H ABG pH ABG pCO2 ABG pO2 ABG Total CO2 ABG O2 Saturation ABG Hematocrit ABG Sodium ABG Potassium ABG Ionized Calcium ABG Glucose ABG Lactic Acid Hemoglobin POC Glucose (mg/dL) 109 H Arterial Blood Potassium Arterial Blood Glucose Crossmatch 07/29/18 14:14 WBC RBC Hgb Hct Plt Count Neutrophils # Lymphocytes # PT INR APTT ABG pH ABG pCO2 ABG pO2 127 H ABG Total CO2 26 H ABG O2 Saturation 99.2 H ABG Hematocrit ABG Sodium ABG Potassium ABG Ionized Calcium ABG Glucose ABG Lactic Acid Hemoglobin POC Glucose (mg/dL) Arterial Blood Potassium Arterial Blood Glucose Crossmatch - Diagnostic Findings Chest x-ray: report reviewed, image reviewed Assessment and Plan Assessment: Diffuse coronary artery disease for details refer to the cardiac cath data, status post CABG 2 Sleep disorder breathing and sleep apnea patient to undergo CPAP postextubation during sleep and when necessary during the day Bi basilar subsegmental atelectasis Chronic atrial fibrillation Hypertension hypertensive cardiovascular disease Dyslipidemia Plan: Patient is off of vasopressors, FiO2 has been just lowered down to 50% arterial blood gas and radiographic studies reviewed Once patient is more awake will replaced on CPAP and pressure support likely will be extubated O follow clinical course closely further recommendations pending Time with Patient: Greater than 30
[2018-07-29 14:59] LABS: ALT 29 U/L (21-72); AST 33 U/L (17-59); Albumin 2.8 g/dL (3.5-5.0); Alkaline Phosphatase 23 U/L (38-126); Anion Gap 6 mmol/L; Blood Urea Nitrogen 18 mg/dL (9-20); Calcium 7.8 mg/dL (8.4-10.2); Carbon Dioxide 23 mmol/L (22-30); Chloride 109 mmol/L (98-107); Glucose 105 mg/dL (74-99); Magnesium 2.6 mg/dL (1.6-2.3); Potassium 4.4 mmol/L (3.5-5.1); Sodium 138 mmol/L (137-145); Total Bilirubin 0.7 mg/dL (0.2-1.3)
[2018-07-29] MEDS: CLEVIDIPINE BUTYRATE 25 MG in EMPTY BAG 1 BAG IV SCH ×2 (15:00→21:13)
[2018-07-29] MEDS: IPRATROPIUM-ALBUTEROL 3 ML NEB INHALATION SCH ×2 (15:18→21:18)
[2018-07-29 15:47] LABS: Glucose,Whole Blood 109 mg/dL (75-99)
[2018-07-29] MEDS: ceFAZolin IN SWFI 2 GM/20 ML SYRINGE IVP SCH ×2 (15:54→23:06)
[2018-07-29 16:11] LABS: Glucose,Whole Blood 118 mg/dL (75-99)
[2018-07-29 16:41] LABS: Basophils % (A) 0 %; Eosinophils % (A) 0 %; HCT 37.2 % (39.0-53.0); HGB 12.5 gm/dL (13.0-17.5); Lymphocytes # (A) 0.8 k/uL (1.0-4.8); Lymphocytes % (A) 8 %; MCH 32.3 pg (25.0-35.0); MCHC 33.5 g/dL (31.0-37.0); MCV 96.4 fL (80.0-100.0); Mean Platelet Volume 8.1; Monocytes # (A) 0.5 k/uL (0-1.0); Monocytes % (A) 5 %; Neutrophils # (A) 8.2 k/uL (1.3-7.7); Neutrophils % (A) 86 %; Platelet Count 111 k/uL (150-450); RBC 3.86 m/uL (4.30-5.90); RDW 12.2 % (11.5-15.5); WBC 9.6 k/uL (3.8-10.6)
[2018-07-29 17:05] LABS: Glucose,Whole Blood 173 mg/dL (75-99)
[2018-07-29 17:05] LABS: ABG Base Excess -3.5 mmol/L; ABG HCO3 23 mmol/L (21-25); ABG Oxygen Saturation 97.6 % (94-97); ABG PCO2 43 mmHg (35-45); ABG PH 7.33 (7.35-7.45); ABG PO2 95 mmHg (83-108); ABG TCO2 24 mmol/L (19-24)
[2018-07-29] MEDS: ACETAMINOPHEN IV (For NPO) 1,000 MG in EMPTY BAG 1 BAG IVPB SCH ×2 (17:21→23:05)
--- NOTE | 2018-07-29 17:42 | P.HPIM ---
History of Present Illness H&P Date: 07/29/18 The patient is a 63 yo M with a PMH of HTN, HLD, JOCELINE on CPAP, paroxysmal A-fib s /p cardioversion on 07/12/18, with subsequent reversion to A-fib. The patient then underwent an elective cardiac cath on 07/25/18 showing multi-vessel disease with subsequent recommendation for revascularization surgery. The patient underwent CABG earlier today w/ SIFUENTES to LAD and RA to PDA. The patient seen in the SICU post-operatively. Patient intubated thereby history obtained from the chart. Review of Systems Pertinent positives and negatives as discussed in HPI, a complete review of systems was performed and all other systems are negative. Past Medical History Past Medical History: Atrial Fibrillation, Hyperlipidemia, Hypertension, Sleep Apnea/CPAP/BIPAP Additional Past Medical History / Comment(s): uses CPAP History of Any Multi-Drug Resistant Organisms: None Reported Past Surgical History: Heart Catheterization, Orthopedic Surgery Additional Past Surgical History / Comment(s): COLONOSCOPY, RT ANKLE SX, SINUS SX, Cardioversion 07/12/2018, Lasix eye surgery. Past Anesthesia/Blood Transfusion Reactions: No Reported Reaction Smoking Status: Former smoker - Past Family History Mother Family Medical History: Congestive Heart Failure (CHF) Brother(s) Family Medical History: Myocardial Infarction (CT) Sister(s) Family Medical History: Congestive Heart Failure (CHF) Medications and Allergies Home Medications Medication Instructions Recorded Confirmed Type Amiodarone [Cordarone] 200 mg PO BID 12/07/16 07/29/18 History Apixaban [Eliquis] 5 mg PO BID 12/07/16 07/29/18 History Lisinopril 10 mg PO DAILY 12/07/16 07/29/18 History Pravastatin Sodium [Pravachol] 80 mg PO HS 12/07/16 07/29/18 History Metoprolol Tartrate [Lopressor] 12.5 mg PO HS 12/08/16 07/29/18 History Metoprolol Tartrate [Lopressor] 25 mg PO DAILY 12/08/16 07/29/18 History Aspirin EC [Ecotrin Low Dose] 81 mg PO DAILY 07/29/18 07/29/18 History Allergies Allergy/AdvReac Type Severity Reaction Status Date / Time amoxicillin [From Augmentin] AdvReac Diarrhea Verified 12/21/18 14:18 atorvastatin [From Lipitor] AdvReac Unknown Verified 07/29/18 14:18 clavulanic acid AdvReac Diarrhea Verified 07/29/18 14:18 [From Augmentin] Physical Exam Vitals: Vital Signs Temp Pulse Pulse Resp BP BP Pulse Ox 07/29/18 15:39 61 07/29/18 15:19 62 07/29/18 06:02 97.0 F L 51 L 16 158/88 158/77 96 Intake and Output 07/29/18 07/29/18 07/29/18 06:59 14:59 22:59 Intake Total 83.5 229.16 Output Total 2383 472 Balance -2299.5 -242.84 Intake: IV 83.5 191.0 ACETAMINOPHEN IV (For NPO 0 ) 1,000 mg In Empty Bag 1 bag @ 400 mls/hr IVPB Q6HR TANA Rx#:[id number] CO/CI 20 40 Lactated Ringers 1,000 ml 50 100 @ 50 mls/hr IV .Q20H TANA Rx#:[id number] Nitroglycerin-D5w Pmx 50 1.5 3.0 mg In Dextrose/Water 1 250ml.bag @ 5 MCG/MIN 1.5 mls/hr IV .Q24H TANA Rx#: [id number] Pressure Bag 9 18 ceFAZolin 2,000 mg In 0 30 Sodium Chloride 0.9% 30 ml @ Per Protocol IVPB ONCE ONE Rx#:[id number] Intake, IV Titration 38.16 Amount Propofol 1,000 mg In 38.16 Empty Bag 1 bag @ Titrate IV .Q0M TANA Rx#: [id number] Output: Chest Tube Drainage 228 147 Left 130 50 MSx2 92 88 Right 6 9 Urine 655 325 Estimated Blood Loss 1500 Other: Weight 84.83 kg General: intubated M, [no distress], [appears at stated age] Derm: [no unusual rashes/lesions] [no unusual ecchymoses], [warm], [dry] Head: [atraumatic], [normocephalic], [symmetric] Eyes: [anicteric sclera], [pupils equal round reactive to light] ENT: [Nose and ears atraumatic], [no thrush], [no pharyngeal erythema] Mouth: [no lip lesion], [mucus membranes moist] Cardiovascular: [S1S2 reg], [no murmur], post-sternotomy dressings in place, [ no edema], [capillary refill less than 2 seconds] Lungs: [CTA bilateral], multiple chest tubes in place Abdominal: [soft], [no appreciable organomegaly] Ext: [no gross muscle atrophy] Neuro: Intubated M, somewhat opening eyes to verbal stimuli, not following commands Results CBC & Chem 7: 07/29/18 16:10 07/29/18 14:02 Labs: Abnormal Lab Results - Last 24 Hours (Table) 07/25/18 07/29/18 07/29/18 Range/Units 12:44 08:38 10:23 WBC (3.8-10.6) k/uL RBC (4.30-5.90) m/uL Hgb (13.0-17.5) gm/dL Hct (39.0-53.0) % Plt Count (150-450) k/uL Neutrophils # (1.3-7.7) k/uL Lymphocytes # (1.0-4.8) k/uL PT (9.0-12.0) sec INR (<1.2) APTT (22.0-30.0) sec ABG pH 7.34 L (7.35-7.45) ABG pCO2 46 H (35-45) mmHg ABG pO2 386 H 247 H (83-108) mmHg ABG Total CO2 25 H 26 H (19-24) mmol/L ABG O2 Saturation 99.8 H 99.6 H (94-97) % ABG Hematocrit (34.0-46.0) % ABG Sodium (135-146) mmol/L ABG Potassium (3.4-4.5) mmol/L ABG Ionized Calcium (4.5-5.3) mg/dL ABG Glucose 123 H (75-99) mg/dL ABG Lactic Acid (0.5-1.6) mmol/L Hemoglobin (13.0-17.5) gm/dL Chloride (98-107) mmol/L Glucose (74-99) mg/dL POC Glucose (mg/dL) (75-99) mg/dL Calcium (8.4-10.2) mg/dL Magnesium (1.6-2.3) mg/dL Alkaline Phosphatase (38-126) U/L Total Protein (6.3-8.2) g/dL Albumin (3.5-5.0) g/dL Arterial Blood Potassium (3.4-4.5) mmol/L Arterial Blood Glucose 123 H (75-99) mg/dL Crossmatch See Detail 07/29/18 07/29/18 07/29/18 Range/Units 11:09 11:39 13:01 WBC (3.8-10.6) k/uL RBC (4.30-5.90) m/uL Hgb (13.0-17.5) gm/dL Hct (39.0-53.0) % Plt Count (150-450) k/uL Neutrophils # (1.3-7.7) k/uL Lymphocytes # (1.0-4.8) k/uL PT (9.0-12.0) sec INR (<1.2) APTT (22.0-30.0) sec ABG pH 7.31 L (7.35-7.45) ABG pCO2 48 H (35-45) mmHg ABG pO2 382 H 336 H 70 L (83-108) mmHg ABG Total CO2 25 H 25 H 25 H (19-24) mmol/L ABG O2 Saturation 99.8 H 99.8 H 93.5 L (94-97) % ABG Hematocrit 32 L 31 L 31 L (34.0-46.0) % ABG Sodium 134 L (135-146) mmol/L ABG Potassium 5.3 H (3.4-4.5) mmol/L ABG Ionized Calcium 4.1 L 4.2 L 4.1 L (4.5-5.3) mg/dL ABG Glucose 122 H 197 H 132 H (75-99) mg/dL ABG Lactic Acid 2.1 H (0.5-1.6) mmol/L Hemoglobin 10.6 L 10.1 L 10.0 L (13.0-17.5) gm/dL Chloride (98-107) mmol/L Glucose (74-99) mg/dL POC Glucose (mg/dL) (75-99) mg/dL Calcium (8.4-10.2) mg/dL Magnesium (1.6-2.3) mg/dL Alkaline Phosphatase (38-126) U/L Total Protein (6.3-8.2) g/dL Albumin (3.5-5.0) g/dL Arterial Blood Potassium 5.3 H (3.4-4.5) mmol/L Arterial Blood Glucose 122 H 197 H 132 H (75-99) mg/dL Crossmatch 07/29/18 07/29/18 07/29/18 Range/Units 14:02 14:02 14:02 WBC 11.5 H (3.8-10.6) k/uL RBC 3.49 L (4.30-5.90) m/uL Hgb 11.3 L D (13.0-17.5) gm/dL Hct 33.6 L (39.0-53.0) % Plt Count 110 L (150-450) k/uL Neutrophils # 10.2 H (1.3-7.7) k/uL Lymphocytes # 0.6 L (1.0-4.8) k/uL PT 12.1 H (9.0-12.0) sec INR 1.2 H (<1.2) APTT 37.8 H (22.0-30.0) sec ABG pH (7.35-7.45) ABG pCO2 (35-45) mmHg ABG pO2 (83-108) mmHg ABG Total CO2 (19-24) mmol/L ABG O2 Saturation (94-97) % ABG Hematocrit (34.0-46.0) % ABG Sodium (135-146) mmol/L ABG Potassium (3.4-4.5) mmol/L ABG Ionized Calcium (4.5-5.3) mg/dL ABG Glucose (75-99) mg/dL ABG Lactic Acid (0.5-1.6) mmol/L Hemoglobin (13.0-17.5) gm/dL Chloride 109 H (98-107) mmol/L Glucose 105 H (74-99) mg/dL POC Glucose (mg/dL) (75-99) mg/dL Calcium 7.8 L (8.4-10.2) mg/dL Magnesium 2.6 H (1.6-2.3) mg/dL Alkaline Phosphatase 23 L (38-126) U/L Total Protein 5.0 L (6.3-8.2) g/dL Albumin 2.8 L (3.5-5.0) g/dL Arterial Blood Potassium (3.4-4.5) mmol/L Arterial Blood Glucose (75-99) mg/dL Crossmatch 07/29/18 07/29/18 07/29/18 Range/Units 14:03 14:14 15:09 WBC (3.8-10.6) k/uL RBC (4.30-5.90) m/uL Hgb (13.0-17.5) gm/dL Hct (39.0-53.0) % Plt Count (150-450) k/uL Neutrophils # (1.3-7.7) k/uL Lymphocytes # (1.0-4.8) k/uL PT (9.0-12.0) sec INR (<1.2) APTT (22.0-30.0) sec ABG pH (7.35-7.45) ABG pCO2 (35-45) mmHg ABG pO2 127 H (83-108) mmHg ABG Total CO2 26 H (19-24) mmol/L ABG O2 Saturation 99.2 H (94-97) % ABG Hematocrit (34.0-46.0) % ABG Sodium (135-146) mmol/L ABG Potassium (3.4-4.5) mmol/L ABG Ionized Calcium (4.5-5.3) mg/dL ABG Glucose (75-99) mg/dL ABG Lactic Acid (0.5-1.6) mmol/L Hemoglobin (13.0-17.5) gm/dL Chloride (98-107) mmol/L Glucose (74-99) mg/dL POC Glucose (mg/dL) 109 H 109 H (75-99) mg/dL Calcium (8.4-10.2) mg/dL Magnesium (1.6-2.3) mg/dL Alkaline Phosphatase (38-126) U/L Total Protein (6.3-8.2) g/dL Albumin (3.5-5.0) g/dL Arterial Blood Potassium (3.4-4.5) mmol/L Arterial Blood Glucose (75-99) mg/dL Crossmatch 07/29/18 07/29/18 07/29/18 Range/Units 16:09 16:10 17:03 WBC (3.8-10.6) k/uL RBC 3.86 L (4.30-5.90) m/uL Hgb 12.5 L (13.0-17.5) gm/dL Hct 37.2 L (39.0-53.0) % Plt Count 111 L (150-450) k/uL Neutrophils # 8.2 H (1.3-7.7) k/uL Lymphocytes # 0.8 L (1.0-4.8) k/uL PT (9.0-12.0) sec INR (<1.2) APTT (22.0-30.0) sec ABG pH (7.35-7.45) ABG pCO2 (35-45) mmHg ABG pO2 (83-108) mmHg ABG Total CO2 (19-24) mmol/L ABG O2 Saturation (94-97) % ABG Hematocrit (34.0-46.0) % ABG Sodium (135-146) mmol/L ABG Potassium (3.4-4.5) mmol/L ABG Ionized Calcium (4.5-5.3) mg/dL ABG Glucose (75-99) mg/dL ABG Lactic Acid (0.5-1.6) mmol/L Hemoglobin (13.0-17.5) gm/dL Chloride (98-107) mmol/L Glucose (74-99) mg/dL POC Glucose (mg/dL) 118 H 173 H (75-99) mg/dL Calcium (8.4-10.2) mg/dL Magnesium (1.6-2.3) mg/dL Alkaline Phosphatase (38-126) U/L Total Protein (6.3-8.2) g/dL Albumin (3.5-5.0) g/dL Arterial Blood Potassium (3.4-4.5) mmol/L Arterial Blood Glucose (75-99) mg/dL Crossmatch 07/29/18 Range/Units 17:04 WBC (3.8-10.6) k/uL RBC (4.30-5.90) m/uL Hgb (13.0-17.5) gm/dL Hct (39.0-53.0) % Plt Count (150-450) k/uL Neutrophils # (1.3-7.7) k/uL Lymphocytes # (1.0-4.8) k/uL PT (9.0-12.0) sec INR (<1.2) APTT (22.0-30.0) sec ABG pH 7.33 L (7.35-7.45) ABG pCO2 (35-45) mmHg ABG pO2 (83-108) mmHg ABG Total CO2 (19-24) mmol/L ABG O2 Saturation 97.6 H (94-97) % ABG Hematocrit (34.0-46.0) % ABG Sodium (135-146) mmol/L ABG Potassium (3.4-4.5) mmol/L ABG Ionized Calcium (4.5-5.3) mg/dL ABG Glucose (75-99) mg/dL ABG Lactic Acid (0.5-1.6) mmol/L Hemoglobin (13.0-17.5) gm/dL Chloride (98-107) mmol/L Glucose (74-99) mg/dL POC Glucose (mg/dL) (75-99) mg/dL Calcium (8.4-10.2) mg/dL Magnesium (1.6-2.3) mg/dL Alkaline Phosphatase (38-126) U/L Total Protein (6.3-8.2) g/dL Albumin (3.5-5.0) g/dL Arterial Blood Potassium (3.4-4.5) mmol/L Arterial Blood Glucose (75-99) mg/dL Crossmatch Thrombosis Risk Factor Assmnt - Choose All That Apply Each Factor Represents 1 point: Obesity (BMI >25) Each Risk Factor Represents 2 Points: Age 61-74 years, Central venous access Each Risk Factor Represents 5 Points: Major surgery lasting over 3 hours Thrombosis Risk Factor Assessment Total Risk Factor Score: 10 Thrombosis Risk Factor Assessment Level: High Risk Assessment and Plan Plan: Post-operative anemia and thrombocytopenia, as anticipated -Will monitor CBC -Monitor for signs of bleeding CAD s/p CABG -As per cardiothoracic surgery service -On Aspirin, Plavix, Amiodarone infusion, Nitroglycerin infusion A-fib -Will hold Eliquis for now. Will resume as per the discretion of Cardiothoracic service. HTN -C/w Lopressor HLD -C/w Pravachol DVT//GI proph -Heparin -Protonix
[2018-07-29 18:38] LABS: Glucose,Whole Blood 155 mg/dL (75-99)
[2018-07-29 19:07] LABS: Glucose,Whole Blood 159 mg/dL (75-99)
[2018-07-29 20:14] LABS: Glucose,Whole Blood 172 mg/dL (75-99)
[2018-07-29 20:20] LABS: Basophils % (A) 0 %; Eosinophils % (A) 0 %; HCT 37.1 % (39.0-53.0); HGB 12.5 gm/dL (13.0-17.5); Lymphocytes # (A) 0.4 k/uL (1.0-4.8); Lymphocytes % (A) 3 %; MCH 32.3 pg (25.0-35.0); MCHC 33.5 g/dL (31.0-37.0); MCV 96.3 fL (80.0-100.0); Mean Platelet Volume 8.1; Monocytes # (A) 0.6 k/uL (0-1.0); Monocytes % (A) 4 %; Neutrophils # (A) 12.1 k/uL (1.3-7.7); Neutrophils % (A) 92 %; Platelet Count 139 k/uL (150-450); RBC 3.86 m/uL (4.30-5.90); RDW 12.3 % (11.5-15.5); WBC 13.2 k/uL (3.8-10.6)
[2018-07-29] MEDS: ONDANSETRON 4 MG/2 ML VIAL IVP PRN (20:33)
--- NOTE | 2018-07-29 20:35 | OP ---
OPERATIVE REPORT DATE OF SURGERY: 07/29/2018. SURGEON: Dr. Matthew Jaquez. ASSISTANTS: 1. Berny Hernandez [employer]. 2. Dhiraj VALLE. PREOPERATIVE DIAGNOSES: 1. Double-vessel coronary artery disease. 2. Preserved left ventricular function. 3. Paroxysmal atrial fibrillation. 4. Hypertension. 5. Hyperlipidemia. 6. Ex-tobacco abuse. 7. Obstructive sleep apnea. 8. Strong family history of coronary artery disease. POSTOPERATIVE DIAGNOSES: 1. Double-vessel coronary artery disease. 2. Preserved left ventricular function. 3. Paroxysmal atrial fibrillation. 4. Hypertension. 5. Hyperlipidemia. 6. Ex-tobacco abuse. 7. Obstructive sleep apnea. 8. Strong family history of coronary artery disease. 9. Diffuse calcific wall disease. PROCEDURE: 1. Double arterial coronary artery bypass grafting using the left internal mammary artery to the left anterior descending artery, the left radial artery from the aorta to the posterior descending artery. 2. Bilateral pulmonary vein isolation using the bipolar radiofrequency clamp from AtriCure. 3. Exclusion of the left atrial appendage using a 40 mm AtriClip. 4. Intraoperative transesophageal echocardiogram and epiaortic scanning. 5. Endoscopic harvesting of the left radial artery. 6. Intraoperative graft flow measurements using the Medi-Stim system. INDICATION FOR SURGERY: The patient is a 63-year-old gentleman with a very strong family history of coronary artery disease, having had a brother who passed at age 30 from myocardial infarction, who has been followed by Cardiology mainly for paroxysmal/persistent atrial fibrillation, status post cardioversion recently. The patient underwent a workup in view of some EKG changes post cardioversion that included a cardiac catheterization that showed proximal LAD disease and RCA bifurcation disease. The circumflex artery had a nonsignificant stenosis in it. His left ventricular function is preserved. We were consulted and we planned double-vessel arterial coronary artery bypass grafting along with bilateral pulmonary vein isolation and exclusion of his left atrial appendage. The patient understood the STS risk; that was discussed with him and he agreed to proceed. DESCRIPTION OF THE PROCEDURE: With the patient in supine position, a right internal jugular [place]-Anum catheter and a right radial arterial line were placed. His cardiac index was 2.6 and PA pressure was 40/16. Subsequently he was brought to the operating room, where general endotracheal anesthesia was induced uneventfully. He received 2 grams of cefazolin intravenously. Villeda catheter was inserted. The chest, abdomen, both lower extremities and left upper extremities were prepped and draped using ChloraPrep. Ioban was used to cover the skin. Transesophageal echocardiogram confirmed the preoperative findings of overall preserved left ventricular function, mild mitral valve regurgitation, and absence of clot from the left atrial appendage. A midline sternotomy was performed. No bone wax was used. The bone was mildly osteoporotic. The left hemisternum was elevated and the left internal mammary artery was harvested in a semi-skeletonized fashion. The left pleura was opened in this process and was drained with a 19-Serbian Brennen drain. The right pleura also had a breach in it and was drained with another 19-Serbian Brennen drain. Mediastinal fat was transected between 2 ties and epiaortic scanning revealed concentric intimal thickening but no protruding atheroma in the ascending aorta. Pericardial cradle was created after opening the pericardium in an inverted T fashion. Findings were a normal-sized and soft aorta and a normal-sized heart. After systemic heparinization and after placement of respective pledgeted pursestrings, aortic cannulation with a 21-Serbian Soft Flow cannula in the distal ascending aorta and venous cannulation via the right atrial appendage using a dual-stage cannula was performed. Antegrade as well as retrograde cardioplegia catheters were also placed. In the same setting, the left radial artery was harvested endoscopically after initially exposing it at the wrist and performing a clamping trial that revealed a preserved pulsatile signal in the left index oxygen saturation probe. No tourniquet was used. The forearm incision was closed over a drain. The radial artery was prepared by opening the fascia all along its volar aspect and clipping all the branches. It was of excellent quality, around 3 mm in diameter. The mammary artery was double clipped distally before its bifurcation and transected. It had an excellent pulsatile flow in it. It was around 1.75 mm in diameter. Cardiopulmonary bypass was initiated. The patient's temperature was allowed to drift down to 34 degrees Celsius. We initially, after dissecting a little bit in the interatrial groove, were able to encircle the right-sided pulmonary vein and we passed a bipolar radiofrequency clamp and we applied 3 ablations at the level of the antrum of the vein on an atrial cuff using the bipolar radiofrequency AtriCure. Subsequently the aorta was clamped, and during aortic clamping myocardial protection was achieved with an initial dose of antegrade cold blood cardioplegia with adequate arrest at 200 mL followed by a dose of retrograde cold blood cardioplegia. All subsequent doses were given retrograde at 15-minute intervals. We subsequently incised the ligament of John and clipped the vein in it on both sides. Subsequently, the left-sided pulmonary veins were encircled and a radiofrequency bipolar clamp from AtriCure passed and 3 ablations also were performed on an atrial cuff. Subsequently the left atrial appendage was excluded with a 40 mm AtriClip deployed at its base. Attention was moved at this point to performing the distal anastomoses. The first distal anastomosis was between the radial artery and the proximal aspect of the posterior descending artery which had calcific wall disease in it. It was around 1.5 mm diameter. This was done using Prolene 7-0 in continuous fashion. There was excellent flow through the radial graft. The second distal anastomosis was between the left internal mammary artery and the mid aspect of the left anterior descending artery, which also had some intermediate and intermittent calcific disease, and I found a soft spot. The LAD was around 2 mm in diameter and the anastomosis was completed using Prolene 7-0 in continuous fashion. The mammary veins were affixed to the epicardium on either side with a Prolene 6-0 suture. A groove was made in the left pleural pericardial fat to accommodate the mammary artery medial to the lung and away from the posterior sternal table. Rewarming was started as we punched out a button of 5 mm from the anterior aspect of the proximal ascending aorta, and a radial artery proximal anastomosis was completed using Prolene 7-0 in continuous fashion. The patient was given lidocaine and magnesium, and de-airing maneuvers were followed before unclamping the aorta. He regained spontaneous sinus rhythm. After a period of reperfusion, we were able to wean him off cardiopulmonary bypass without the need of any inotropic or vasopressor support. Graft flow measurements at this point revealed excellent parameters. The flow into the left intramammary artery was 20 mL/minute, pulsatility index of 3.5, and diastolic fraction of 73%. The flow into the radial artery was 29 mL/minute, pulsatility index of 1.8, and diastolic filling of 65%. With that, test-dose then full-dose protamine was given. Decannulation followed. The venous cannulation site was closed using running Prolene 4-0. Two monopolar atrial pacing wires were affixed to the respective pledgeted pursestrings on the right atrium and one bipolar ventricular pacing wire was driven via the inferior aspect of the right ventricle. Two 19-Serbian Brennen drains were placed, one substernally and one in the posterior pericardium. Pericardial fat was approximated over the whole heart. After ensuring adequate hemostasis and hemodynamics and after correct sponge, instrument and needle counts, the sternum was closed using 5 [id number] pineal cables after interposing Fibrillar between the sternal edges. Thorough irrigation with cefazolin followed. The rest of the closure proceeded in layers. Skin glue was applied. Patient tolerated the procedure well and was transferred to the ICU on low-dose nitroglycerin with excellent hemodynamics. He did not receive any blood bank product but received 500 mL of Cell Saver blood. MMODL / IJN: [id number] /
[2018-07-29] MEDS ORDERED: KETOROLAC 30 MG/ML 1 ML VIAL IVP STA (21:08)
[2018-07-29] MEDS: PRAVASTATIN SODIUM 80 MG TAB PO SCH (21:13)
[2018-07-29 21:25] LABS: Glucose,Whole Blood 153 mg/dL (75-99)
[2018-07-29] MEDS: MUPIROCIN 2% OINT 22 GM TUBE NASAL SCH (21:59)
[2018-07-29] MEDS: HEPARIN SODIUM,PORCINE 5,000 UNIT/ML 1 ML VIAL SQ SCH (21:59)
[2018-07-29 22:18] LABS: Glucose,Whole Blood 141 mg/dL (75-99)
[2018-07-29 23:02] LABS: Glucose,Whole Blood 153 mg/dL (75-99)
[2018-07-29] MEDS: KETOROLAC 30 MG/ML 1 ML VIAL IVP SCH (23:06)
[2018-07-30 01:14] LABS: Glucose,Whole Blood 151 mg/dL (75-99)
[2018-07-30 02:47] LABS: Glucose,Whole Blood 147 mg/dL (75-99)
[2018-07-30 03:38] LABS: Glucose,Whole Blood 139 mg/dL (75-99)
[2018-07-30 04:25] LABS: Glucose,Whole Blood 123 mg/dL (75-99)
[2018-07-30 04:30] LABS: Basophils % (A) 0 %; Eosinophils % (A) 0 %; HCT 36.6 % (39.0-53.0); HGB 11.9 gm/dL (13.0-17.5); Lymphocytes # (A) 0.4 k/uL (1.0-4.8); Lymphocytes % (A) 3 %; MCH 31.1 pg (25.0-35.0); MCHC 32.4 g/dL (31.0-37.0); MCV 95.9 fL (80.0-100.0); Monocytes # (A) 0.6 k/uL (0-1.0); Monocytes % (A) 4 %; Neutrophils # (A) 11.8 k/uL (1.3-7.7); Neutrophils % (A) 92 %; Platelet Count 137 k/uL (150-450); RBC 3.82 m/uL (4.30-5.90); RDW 12.2 % (11.5-15.5); WBC 12.9 k/uL (3.8-10.6)
[2018-07-30 04:34] LABS: Ionized Calcium 4.8 mg/dL (4.5-5.3)
[2018-07-30 04:44] LABS: ALT 27 U/L (21-72); AST 42 U/L (17-59); Albumin 3.2 g/dL (3.5-5.0); Alkaline Phosphatase 30 U/L (38-126); Anion Gap 8 mmol/L; Blood Urea Nitrogen 18 mg/dL (9-20); Calcium 8.2 mg/dL (8.4-10.2); Carbon Dioxide 24 mmol/L (22-30); Chloride 107 mmol/L (98-107); Glucose 119 mg/dL (74-99); Magnesium 2.1 mg/dL (1.6-2.3); Phosphorus 3.2 mg/dL (2.5-4.5); Potassium 4.4 mmol/L (3.5-5.1); Sodium 139 mmol/L (137-145); Total Bilirubin 0.8 mg/dL (0.2-1.3); Total Protein 5.6 g/dL (6.3-8.2)
[2018-07-30 04:56] LABS: Partial Thromboplastin Time 23.2 sec (22.0-30.0); Prothrombin Time 10.7 sec (9.0-12.0)
[2018-07-30 05:14] LABS: Glucose,Whole Blood 134 mg/dL (75-99)
[2018-07-30] MEDS: KETOROLAC 30 MG/ML 1 ML VIAL IVP SCH ×3 (05:28→17:54)
[2018-07-30] MEDS: HEPARIN SODIUM,PORCINE 5,000 UNIT/ML 1 ML VIAL SQ SCH ×2 (05:29→16:21)
[2018-07-30] MEDS: ACETAMINOPHEN IV (For NPO) 1,000 MG in EMPTY BAG 1 BAG IVPB SCH ×3 (05:29→17:54)
[2018-07-30 06:24] LABS: Glucose,Whole Blood 132 mg/dL (75-99)
[2018-07-30 08:11] LABS: Glucose,Whole Blood 127 mg/dL (75-99)
[2018-07-30] MEDS: IPRATROPIUM-ALBUTEROL 3 ML NEB INHALATION SCH ×4 (08:32→20:38)
--- NOTE | 2018-07-30 08:37 | XR ---
EXAMINATION TYPE: XR chest 1V portable DATE OF EXAM: 07/30/2018 Comparison: 07/29/2018 Clinical History: 63-year-old male Post Operative Cardiac Surgery Findings: Right IJ sheath with [place]-Anum catheter, tip in the proximal right lower lobar pulmonary artery. Medi an sternotomy wires are present. Bilateral chest tubes without appreciable pneumothorax. Heart mildly enlarged. Patchy atelectasis at the lung bases persists. Mild interstitial prominence is unchanged. Impression: 1. Right IJ [place]-Anum catheter tip extending to the proximal right lower lobe pulmonary artery. If th e balloon is not inflated, consider repositioning. 2. Similar mild pulmonary vascular congestion and bibasilar areas of atelectasis.
[2018-07-30 08:55] LABS: Glucose,Whole Blood 130 mg/dL (75-99)
[2018-07-30] MEDS ORDERED: PANTOPRAZOLE 40 MG/10 ML VIAL IVP SCH (09:00)
[2018-07-30] MEDS: NITROGLYCERIN-D5W PMX 50 MG in DEXTROSE/WATER 1 250ML.BAG IV SCH (09:00)
[2018-07-30] MEDS ORDERED: METOPROLOL TARTRATE 12.5 MG TAB PO SCH (09:00)
[2018-07-30] MEDS: ceFAZolin IN SWFI 2 GM/20 ML SYRINGE IVP SCH (09:08)
[2018-07-30] MEDS: CLOPIDOGREL 75 MG TAB PO SCH (09:09)
[2018-07-30] MEDS: ASPIRIN 325 MG TAB PO SCH (09:09)
--- NOTE | 2018-07-30 09:19 | P.CRDCN ---
History of Present Illness Consult date: 07/30/18 History of present illness: This is a 60-year-old gentleman with history of hypertension, recurrent persistent atrial fibrillation and also sleep apnea, who was evaluated by cardiac catheterization and was found to have multivessel disease. Patient was found to have 75% stenosis of the LAD, 50% stenosis of the circumflex, 70% stenosis of the OM branch, 70% stenosis of the RCA and 50% stenosis of the PLV branch. A she had multivessel bypass surgery. He patient is sitting up in the chair. His cardiac index is about 3. His maintaining sinus rhythm. No arrhythmias are noted. Patient still has chest tubes. Overall patient seemed to be doing well. Review of Systems As per the chart Past Medical History Past Medical History: Atrial Fibrillation, Hyperlipidemia, Hypertension, Sleep Apnea/CPAP/BIPAP Additional Past Medical History / Comment(s): uses CPAP History of Any Multi-Drug Resistant Organisms: None Reported Past Surgical History: Heart Catheterization, Orthopedic Surgery Additional Past Surgical History / Comment(s): COLONOSCOPY, RT ANKLE SX, SINUS SX, Cardioversion 07/12/2018, Lasix eye surgery. Past Anesthesia/Blood Transfusion Reactions: No Reported Reaction Smoking Status: Former smoker - Past Family History Mother Family Medical History: Congestive Heart Failure (CHF) Brother(s) Family Medical History: Myocardial Infarction ([place]) Sister(s) Family Medical History: Congestive Heart Failure (CHF) Medications and Allergies Home Medications Medication Instructions Recorded Confirmed Type Amiodarone [Cordarone] 200 mg PO BID 12/07/16 07/29/18 History Apixaban [Eliquis] 5 mg PO BID 12/07/16 07/29/18 History Lisinopril 10 mg PO DAILY 12/07/16 07/29/18 History Pravastatin Sodium [Pravachol] 80 mg PO HS 12/07/16 07/29/18 History Metoprolol Tartrate [Lopressor] 12.5 mg PO HS 12/08/16 07/29/18 History Metoprolol Tartrate [Lopressor] 25 mg PO DAILY 12/08/16 07/29/18 History Aspirin EC [Ecotrin Low Dose] 81 mg PO DAILY 07/29/18 07/29/18 History Allergies Allergy/AdvReac Type Severity Reaction Status Date / Time amoxicillin [From Augmentin] AdvReac Diarrhea Verified 07/29/18 14:18 atorvastatin [From Lipitor] AdvReac Unknown Verified 07/29/18 14:18 clavulanic acid AdvReac Diarrhea Verified 07/29/18 14:18 [From Augmentin] Physical Exam Vitals: Vital Signs Temp Pulse Resp Pulse Ox 07/30/18 09:00 75 22 95 07/30/18 08:43 72 07/30/18 08:32 70 07/30/18 08:00 99.5 F 71 21 95 07/30/18 07:00 70 23 95 07/30/18 06:00 70 17 96 07/30/18 05:00 69 27 H 94 L 07/30/18 04:00 99.1 F 67 21 100 07/30/18 03:00 67 15 99 07/30/18 02:00 68 17 100 07/30/18 01:00 68 21 97 07/30/18 00:00 71 15 97 07/29/18 23:50 24 07/29/18 23:00 73 24 97 07/29/18 22:00 73 24 97 07/29/18 21:35 75 07/29/18 21:24 75 98 07/29/18 21:00 73 19 98 07/29/18 20:30 80 13 94 L 07/29/18 20:15 71 15 98 07/29/18 20:00 98.2 F 74 24 98 07/29/18 19:45 72 16 97 07/29/18 19:30 71 16 97 07/29/18 19:15 73 17 97 07/29/18 19:00 72 16 97 07/29/18 18:45 74 23 95 07/29/18 18:30 71 15 97 07/29/18 18:15 70 21 97 07/29/18 18:00 97.5 F L 69 18 96 07/29/18 17:45 70 0 L 96 07/29/18 17:30 67 18 98 07/29/18 17:15 65 22 99 07/29/18 17:00 96.3 F L 65 19 99 07/29/18 16:45 65 22 97 07/29/18 16:30 63 13 97 07/29/18 16:15 95.2 F L 62 12 98 07/29/18 16:00 58 L 24 99 07/29/18 15:45 64 12 99 07/29/18 15:39 61 07/29/18 15:30 63 24 99 07/29/18 15:19 62 07/29/18 15:15 59 L 12 100 07/29/18 15:00 94.8 F L 61 12 100 07/29/18 14:45 60 12 100 07/29/18 14:30 61 12 100 07/29/18 14:15 95 F L 61 12 100 07/29/18 14:07 69 12 99 Intake and Output 07/29/18 07/30/18 07/30/18 22:59 06:59 14:59 Intake Total 716.834 725.468 161.0 Output Total 1312 388 60 Balance -595.166 337.468 101.0 Intake: IV 644.0 702.5 161.0 ACETAMINOPHEN IV (For NPO 100 100 ) 1,000 mg In Empty Bag 1 bag @ 400 mls/hr IVPB Q6HR TANA Rx#:[id number] CO/CI 80 90 40 Lactated Ringers 1,000 ml 350 400 100 @ 50 mls/hr IV .Q20H TANA Rx#:[id number] Nitroglycerin-D5w Pmx 50 12.0 10.5 3.0 mg In Dextrose/Water 1 250ml.bag @ 5 MCG/MIN 1.5 mls/hr IV .Q24H TANA Rx#: [id number] Pressure Bag 72 72 18 ceFAZolin 2,000 mg In 30 30 Sodium Chloride 0.9% 30 ml @ Per Protocol IVPB ONCE ONE Rx#:[id number] Intake, IV Titration 72.834 22.968 Amount Clevidipine Butyrate 25 23.867 11.133 mg In Empty Bag 1 bag @ 1 MG/HR 2 mls/hr IV .Q24H TANA Rx#:[id number] Insulin Regular 100 unit 10.807 11.835 In Sodium Chloride 0.9% 100 ml @ Per Protocol IV .Q0M TANA Rx#:[id number] Propofol 1,000 mg In 38.16 Empty Bag 1 bag @ Titrate IV .Q0M TANA Rx#: [id number] Output: Chest Tube Drainage 447 135 0 Left 100 60 0 MSx2 278 55 0 Right 69 20 0 Urine 865 253 60 Other: Voiding Method Indwelling Catheter Indwelling Catheter ABP, PAP, CO, CI - Last 8 Hours Arterial Blood Pressure 131/52 Arterial Blood Pressure 119/54 Arterial Blood Pressure 122/54 Arterial Blood Pressure 114/49 Arterial Blood Pressure 112/47 Arterial Blood Pressure 125/53 Arterial Blood Pressure 128/55 Arterial Blood Pressure 123/54 Pulmonary Artery Pressure 24/19 Pulmonary Artery Pressure 22/17 Pulmonary Artery Pressure 23/17 Pulmonary Artery Pressure 23/17 Pulmonary Artery Pressure 21/15 Pulmonary Artery Pressure 28/21 Pulmonary Artery Pressure 25/18 Pulmonary Artery Pressure 25/17 Cardiac Output 8.5 Cardiac Output 7.2 Cardiac Output 7.2 Cardiac Output 7.2 Cardiac Output 7.5 Cardiac Index 4.2 Cardiac Index 3.6 GENERAL EXAM: Patient is alert and oriented and doesn't appear to be in any acute distress HEENT: Normocephalic. Normal reaction of pupils, equal size, normal range of extraocular motion. No erythema or exudates in the throat. NECK: No masses, no nuchal rigidity. CHEST: Postsurgical LUNGS: Diminished breath sounds at bases HEART: S1 and S2 normal with no audible mumurs or gallops. Regular rhythm, femorals equal on both sides.. ABDOMEN: No hepatosplenomegaly, normal bowel sounds, no guarding or rigidity. SKIN: No rashes CENTRAL NERVOUS SYSTEM: No focal deficits. EXTREMITIES: No cyanosis, clubbing or edema. Results 07/30/18 04:05 07/30/18 04:05 Cardiac Enzymes 07/29/18 07/30/18 Range/Units 14:02 04:05 AST 33 42 (17-59) U/L Coagulation 07/29/18 07/30/18 Range/Units 14:02 04:05 PT 12.1 H 10.7 (9.0-12.0) sec APTT 37.8 H 23.2 (22.0-30.0) sec CBC 07/29/18 07/29/18 07/29/18 Range/Units 14:02 16:10 19:55 WBC 11.5 H 9.6 13.2 H (3.8-10.6) k/uL RBC 3.49 L 3.86 L 3.86 L (4.30-5.90) m/uL Hgb 11.3 L D 12.5 L 12.5 L (13.0-17.5) gm/dL Hct 33.6 L 37.2 L 37.1 L (39.0-53.0) % Plt Count 110 L 111 L 139 L (150-450) k/uL 07/30/18 Range/Units 04:05 WBC 12.9 H (3.8-10.6) k/uL RBC 3.82 L (4.30-5.90) m/uL Hgb 11.9 L (13.0-17.5) gm/dL Hct 36.6 L (39.0-53.0) % Plt Count 137 L (150-450) k/uL Comprehensive Metabolic Panel 07/29/18 07/30/18 Range/Units 14:02 04:05 Sodium 138 139 (137-145) mmol/L Potassium 4.4 4.4 (3.5-5.1) mmol/L Chloride 109 H 107 (98-107) mmol/L Carbon Dioxide 23 24 (22-30) mmol/L BUN 18 18 (9-20) mg/dL Creatinine 0.82 0.78 (0.66-1.25) mg/dL Glucose 105 H 119 H (74-99) mg/dL Calcium 7.8 L 8.2 L (8.4-10.2) mg/dL AST 33 42 (17-59) U/L ALT 29 27 (21-72) U/L Alkaline Phosphatase 23 L 30 L (38-126) U/L Total Protein 5.0 L 5.6 L (6.3-8.2) g/dL Albumin 2.8 L 3.2 L (3.5-5.0) g/dL Current Medications Generic Name Dose Route Start Last Admin Trade Name Freq PRN Reason Stop Dose Admin Hydrocodone Bitart/Acetaminophen 2 each 07/30/18 12:50 [place] 5-325 PO Q4HR PRN Severe Pain Hydrocodone Bitart/Acetaminophen 1 each 07/30/18 12:50 [place] 5-325 PO Q4HR PRN Moderate Pain Albuterol/Ipratropium 3 ml 07/29/18 13:24 Duoneb 0.5 Mg-3 Mg/3 Ml Soln INHALATION RT-Q2H PRN Shortness Of Breath Or Wheezing Albuterol/Ipratropium 3 ml 07/30/18 08:00 07/30/18 08:32 Duoneb 0.5 Mg-3 Mg/3 Ml Soln INHALATION 3 ml RT-QID TANA Administration Amlodipine Besylate 5 mg 07/30/18 09:15 Norvasc PO DAILY TANA Aspirin 325 mg 07/30/18 09:00 07/30/18 09:09 Aspirin PO 325 mg DAILY TANA Administration Benzocaine/Menthol 1 each 07/29/18 13:24 Cepacol Lozenge MUCOUS MEM Q2H PRN Sore Throat Bisacodyl 10 mg 07/30/18 12:50 Dulcolax RECTAL DAILY PRN Constipation Clopidogrel Bisulfate 75 mg 07/30/18 09:00 07/30/18 09:09 Plavix PO 75 mg DAILY TANA Administration Heparin Sodium (Porcine) 5,000 unit 07/30/18 16:00 Heparin SQ Q8HR TANA Acetaminophen 1,000 mg/ IV 100 mls @ 400 mls/hr 07/29/18 18:00 07/30/18 05:29 Solution IVPB 07/30/18 18:01 400 mls/hr Q6HR TANA Administration Albumin Human 250 ml/ IV 250 mls @ 250 mls/hr 07/29/18 13:24 Solution IVPB 07/31/18 13:25 Q1HR PRN For Volume Amiodarone HCl 150 mg/ 103 mls @ 618 mls/hr 07/29/18 13:24 Dextrose/Water IV .Q10M PRN Per protocol Protocol Amiodarone HCl 450 mg/ 259 mls @ 34.53 mls/hr 07/29/18 13:24 Dextrose/Water IV .Q7H31M PRN Per Protocol Protocol 1 MG/MIN Calcium Chloride 1,000 mg/ 110 mls @ 100 mls/hr 07/29/18 13:24 Sodium Chloride IV ONCE PRN Ionized Calcium less than 4.4 Clevidipine 25 mg/ IV Solution 50 mls @ 2 mls/hr 07/29/18 13:24 07/30/18 00: 00 IV 0 mg/hr .Q24H TANA 0 mls/hr Titration Protocol 1 MG/HR Insulin Human Regular 100 unit 101 mls @ 0 mls/hr 07/29/18 13:24 07/30/18 04: 30 / Sodium Chloride IV 1.5 units/hr .Q0M TANA 1.51 mls/hr Titration Protocol Per Protocol Lactated Ringer's 1,000 mls @ 50 mls/hr 07/29/18 13:24 07/29/18 14:00 Lactated Ringers IV 50 mls/hr .Q20H TANA Administration Nitroglycerin/Dextrose 50 mg/ 250 mls @ 1.5 mls/hr 07/29/18 13:24 07/29/18 14 :00 IV Solution IV 5 mcg/min .Q24H TANA 1.5 mls/hr Administration 5 MCG/MIN Propofol 1,000 mg/ IV Solution 100 mls @ 0 mls/hr 07/29/18 13:24 07/29/18 16: 00 IV 0 mcg/kg/min .Q0M TANA 0 mls/hr Titration Protocol Titrate Ketorolac Tromethamine 15 mg 07/30/18 00:00 07/30/18 05:28 Toradol IVP 08/02/18 21:08 15 mg Q6HR TANA Administration Magnesium Hydroxide 2,400 mg 07/30/18 12:50 Milk Of Magnesia PO BID PRN Constipation Metoclopramide HCl 10 mg 07/29/18 13:24 Reglan IVP Q4H PRN Nausea And Vomiting Metoprolol Tartrate 12.5 mg 07/30/18 09:00 07/30/18 09:09 Lopressor PO 12.5 mg BID TANA Administration Miscellaneous Information 1 each 07/29/18 13:24 Magnesium Per Protocol MISCELLANE DAILY PRN Per Protocol Protocol Miscellaneous Information 1 each 07/29/18 13:24 Phosphorus Per Protocol MISCELLANE DAILY PRN Per Protocol Protocol Miscellaneous Information 1 each 07/29/18 13:24 Potassium Per Protocol MISCELLANE DAILY PRN Per Protocol Protocol Morphine Sulfate 2 mg 07/29/18 13:24 07/29/18 17:53 Morphine Sulfate (Inj) IVP 2 mg Q2H PRN Administration Severe Pain Mupirocin 1 applic 07/29/18 21:00 07/29/18 21:59 Bactroban Oint NASAL 08/01/18 21:01 1 applic BID TANA Administration Ondansetron HCl 4 mg 07/29/18 13:24 07/29/18 20:33 Zofran IVP 4 mg Q6HR PRN Administration Nausea And Vomiting Oxycodone HCl 10 mg 07/29/18 13:24 Oxyir PO 07/30/18 13:25 Q4H PRN Severe Pain Oxycodone HCl 5 mg 07/29/18 13:24 Oxyir PO 07/30/18 13:25 Q4H PRN Moderate Pain Pantoprazole Sodium 40 mg 07/30/18 09:00 07/30/18 09:09 Protonix IVP 40 mg DAILY TANA Administration Pravastatin Sodium 80 mg 07/29/18 21:00 07/29/18 21:13 Pravachol PO Not Given HS TANA Senna/Docusate Sodium 2 each 07/30/18 21:00 Senokot-S PO HS TANA Sodium Chloride 10 ml 07/29/18 21:00 07/30/18 09:10 Saline Flush IV 10 ml BID TANA Administration Intake and Output 07/29/18 07/30/18 07/30/18 22:59 06:59 14:59 Intake Total 716.834 725.468 161.0 Output Total 1312 388 60 Balance -595.166 337.468 101.0 Intake: IV 644.0 702.5 161.0 ACETAMINOPHEN IV (For NPO 100 100 ) 1,000 mg In Empty Bag 1 bag @ 400 mls/hr IVPB Q6HR TANA Rx#:[id number] CO/CI 80 90 40 Lactated Ringers 1,000 ml 350 400 100 @ 50 mls/hr IV .Q20H TANA Rx#:[id number] Nitroglycerin-D5w Pmx 50 12.0 10.5 3.0 mg In Dextrose/Water 1 250ml.bag @ 5 MCG/MIN 1.5 mls/hr IV .Q24H TANA Rx#: [id number] Pressure Bag 72 72 18 ceFAZolin 2,000 mg In 30 30 Sodium Chloride 0.9% 30 ml @ Per Protocol IVPB ONCE ONE Rx#:[id number] Intake, IV Titration 72.834 22.968 Amount Clevidipine Butyrate 25 23.867 11.133 mg In Empty Bag 1 bag @ 1 MG/HR 2 mls/hr IV .Q24H TANA Rx#:[id number] Insulin Regular 100 unit 10.807 11.835 In Sodium Chloride 0.9% 100 ml @ Per Protocol IV .Q0M TANA Rx#:[id number] Propofol 1,000 mg In 38.16 Empty Bag 1 bag @ Titrate IV .Q0M TANA Rx#: [id number] Output: Chest Tube Drainage 447 135 0 Left 100 60 0 MSx2 278 55 0 Right 69 20 0 Urine 865 253 60 Other: Voiding Method Indwelling Catheter Indwelling Catheter 07/30/18 04:05 07/30/18 04:05 Assessment and Plan (1) S/P CABG (coronary artery bypass graft) Current Visit: Yes Status: Acute Code(s): Z95.1 - PRESENCE OF AORTOCORONARY BYPASS GRAFT SNOMED Code(s): 511723364 (2) Coronary artery disease Current Visit: No Status: Acute Code(s): I25.10 - ATHSCL HEART DISEASE OF [place] CORONARY ARTERY W/O ANG PCTRS SNOMED Code(s): 76487278 (3) Dyslipidemia Current Visit: No Status: Acute Code(s): E78.5 - HYPERLIPIDEMIA, UNSPECIFIED SNOMED Code(s): 096200940 (4) History of nicotine dependence Current Visit: No Status: Acute Code(s): Z87.891 - PERSONAL HISTORY OF NICOTINE DEPENDENCE SNOMED Code(s): 467927256 (5) Hypertension Current Visit: No Status: Acute Code(s): I10 - ESSENTIAL (PRIMARY) HYPERTENSION SNOMED Code(s): 08141583 (6) Persistent atrial fibrillation Current Visit: Yes Status: Acute Code(s): I48.1 - PERSISTENT ATRIAL FIBRILLATION SNOMED Code(s): 033346335 Plan: Patient seemed to be progressing very well. Maintaining sinus rhythm. Cardiac index is a good. Renal functions are preserved. Increase activity. Incentive spirometry
[2018-07-30] MEDS: MUPIROCIN 2% OINT 22 GM TUBE NASAL SCH ×2 (09:24→21:42)
[2018-07-30] MEDS: LACTATED RINGERS 1,000 ML IV SCH (09:26)
[2018-07-30 10:03] LABS: Glucose,Whole Blood 125 mg/dL (75-99)
[2018-07-30] MEDS: amLODIPine 5 MG TAB PO SCH (10:34)
[2018-07-30 11:15] VITALS: BMI 26.8
[2018-07-30 11:22] LABS: Glucose,Whole Blood 132 mg/dL (75-99)
--- NOTE | 2018-07-30 11:23 | P.PN ---
Subjective Progress Note Date: 07/30/18 Principal diagnosis: Coronary artery disease status post coronary artery bypass grafting. We are seeing the patient in Dr. Cline's absence for pulmonary and critical care management. This is a very pleasant 63-year-old gentleman with a known history of hyperlipidemia, hypertension, obstructive sleep apnea utilizing CPAP in the outpatient setting, previous tobacco dependence. The patient also has a history of atrial fibrillation status post cardioversion 07/12/2018. Following that he had ongoing issues with chest discomfort and EKG changes. He subsequently undergone cardiac catheterization on 07/25/2018 which revealed distal right coronary artery disease of 70%, PDA of 80% lesion, 70% of the obtuse marginal branch and proximal LAD with 7080% proximal lesion. He is now status post coronary artery bypass grafting utilizing a SIFUENTES to the LAD, left radial artery to the PDA. This is postoperative day #1. He is seen in the intensive care unit currently sitting up in a chair at the bedside. He is awake and alert in no acute distress. He is currently maintaining good O2 saturations in the mid 90s on room air. He's been afebrile. Hemodynamically stable. He has a lactated Ringer's IV at 50 MLS per hour. Chest x-ray reveals mild pulmonary vascular congestion and bibasilar areas of atelectasis. He is working well with the incentive spirometer. His chest tubes remain in place, left, right, mediastinal 2. Secor-Anum remains in place. PA pressure 24/19 with a mean of 20, cardiac output 8.5, cardiac index 4.2. Objective - Vital Signs Vital signs: Vital Signs Temp 99.5 F 07/30/18 08:00 Pulse 75 07/30/18 10:00 Resp 22 07/30/18 10:00 BP 158/77 07/29/18 06:02 Pulse Ox 95 07/30/18 10:00 Intake & Output 07/29/18 07/30/18 07/30/18 18:59 06:59 18:59 Intake Total 556.886 968.916 220.0 Output Total 3195 888 115 Balance -2638.114 80.916 105.0 Intake: IV 515.5 914.5 220.0 ACETAMINOPHEN IV (For NPO 100 100 ) 1,000 mg In Empty Bag 1 bag @ 400 mls/hr IVPB Q6HR [facility]NA Rx#:[id number] CO/CI 80 110 40 Lactated Ringers 1,000 ml 250 550 150 @ 50 mls/hr IV .Q20H [facility] Rx#:[id number] Nitroglycerin-D5w Pmx 50 7.5 16.5 3.0 mg In Dextrose/Water 1 250ml.bag @ 5 MCG/MIN 1.5 mls/hr IV .Q24H [facility]NA Rx#: [id number] Pressure Bag 45 108 27 ceFAZolin 2,000 mg In 30 30 Sodium Chloride 0.9% 30 ml @ Per Protocol IVPB ONCE ONE Rx#:[id number] Intake, IV Titration 41.386 54.416 Amount Clevidipine Butyrate 25 1 34.000 mg In Empty Bag 1 bag @ 1 MG/HR 2 mls/hr IV .Q24H [facility] Rx#:[id number] Insulin Regular 100 unit 2.226 20.416 In Sodium Chloride 0.9% 100 ml @ Per Protocol IV .Q0M [facility]NA Rx#:[id number] Propofol 1,000 mg In 38.16 Empty Bag 1 bag @ Titrate IV .Q0M [facility] Rx#: [id number] Output: Chest Tube Drainage 490 320 40 Left 190 100 10 MSx2 270 155 30 Right 30 65 0 Urine 1205 568 75 Estimated Blood Loss 1500 Other: Voiding Method Indwelling Catheter Indwelling Catheter Indwelling Catheter ABP, PAP, CO, CI - Last Documented Arterial Blood Pressure 108/52 Pulmonary Artery Pressure 24/19 Cardiac Output 8.5 Cardiac Index 4.2 - Exam GENERAL EXAM: Alert, fairly comfortable in no apparent distress. On room air. HEAD: Normocephalic. EYES: Normal reaction of pupils, equal size. NOSE: Clear with pink turbinates. THROAT: No erythema or exudates. NECK: No masses, no JVD. CHEST: Resonant tach, heart hugger in place, mediastinal chest tubes in place. Right and left chest tube in place. LUNGS: Equal air entry with her cousin the posterior bases. CVS: S1 and S2 normal with no audible murmur, regular rhythm. ABDOMEN: No hepatosplenomegaly, normal bowel sounds, no guarding or rigidity. SPINE: No scoliosis or deformity SKIN: No rashes CENTRAL NERVOUS SYSTEM: No focal deficits, tone is normal in all 4 extremities. EXTREMITIES: There is no peripheral edema. No clubbing, no cyanosis. Peripheral pulses are intact. EUGENIA drain in place left upper extremity. - Labs CBC & Chem 7: 07/30/18 04:05 07/30/18 04:05 Labs: Abnormal Lab Results - Last 24 Hours (Table) 07/25/18 07/29/18 07/29/18 Range/Units 12:44 08:38 10:23 WBC (3.8-10.6) k/uL RBC (4.30-5.90) m/uL Hgb (13.0-17.5) gm/dL Hct (39.0-53.0) % Plt Count (150-450) k/uL Neutrophils # (1.3-7.7) k/uL Lymphocytes # (1.0-4.8) k/uL PT (9.0-12.0) sec INR (<1.2) APTT (22.0-30.0) sec ABG pH 7.34 L (7.35-7.45) ABG pCO2 46 H (35-45) mmHg ABG pO2 386 H 247 H (83-108) mmHg ABG Total CO2 25 H 26 H (19-24) mmol/L ABG O2 Saturation 99.8 H 99.6 H (94-97) % ABG Hematocrit (34.0-46.0) % ABG Sodium (135-146) mmol/L ABG Potassium (3.4-4.5) mmol/L ABG Ionized Calcium (4.5-5.3) mg/dL ABG Glucose 123 H (75-99) mg/dL ABG Lactic Acid (0.5-1.6) mmol/L Hemoglobin (13.0-17.5) gm/dL Chloride (98-107) mmol/L Glucose (74-99) mg/dL POC Glucose (mg/dL) (75-99) mg/dL Calcium (8.4-10.2) mg/dL Magnesium (1.6-2.3) mg/dL Alkaline Phosphatase (38-126) U/L Total Protein (6.3-8.2) g/dL Albumin (3.5-5.0) g/dL Arterial Blood Potassium (3.4-4.5) mmol/L Arterial Blood Glucose 123 H (75-99) mg/dL Crossmatch See Detail 07/29/18 07/29/18 07/29/18 Range/Units 11:09 11:39 13:01 WBC (3.8-10.6) k/uL RBC (4.30-5.90) m/uL Hgb (13.0-17.5) gm/dL Hct (39.0-53.0) % Plt Count (150-450) k/uL Neutrophils # (1.3-7.7) k/uL Lymphocytes # (1.0-4.8) k/uL PT (9.0-12.0) sec INR (<1.2) APTT (22.0-30.0) sec ABG pH 7.31 L (7.35-7.45) ABG pCO2 48 H (35-45) mmHg ABG pO2 382 H 336 H 70 L (83-108) mmHg ABG Total CO2 25 H 25 H 25 H (19-24) mmol/L ABG O2 Saturation 99.8 H 99.8 H 93.5 L (94-97) % ABG Hematocrit 32 L 31 L 31 L (34.0-46.0) % ABG Sodium 134 L (135-146) mmol/L ABG Potassium 5.3 H (3.4-4.5) mmol/L ABG Ionized Calcium 4.1 L 4.2 L 4.1 L (4.5-5.3) mg/dL ABG Glucose 122 H 197 H 132 H (75-99) mg/dL ABG Lactic Acid 2.1 H (0.5-1.6) mmol/L Hemoglobin 10.6 L 10.1 L 10.0 L (13.0-17.5) gm/dL Chloride (98-107) mmol/L Glucose (74-99) mg/dL POC Glucose (mg/dL) (75-99) mg/dL Calcium (8.4-10.2) mg/dL Magnesium (1.6-2.3) mg/dL Alkaline Phosphatase (38-126) U/L Total Protein (6.3-8.2) g/dL Albumin (3.5-5.0) g/dL Arterial Blood Potassium 5.3 H (3.4-4.5) mmol/L Arterial Blood Glucose 122 H 197 H 132 H (75-99) mg/dL Crossmatch 07/29/18 07/29/18 07/29/18 Range/Units 14:02 14:02 14:02 WBC 11.5 H (3.8-10.6) k/uL RBC 3.49 L (4.30-5.90) m/uL Hgb 11.3 L D (13.0-17.5) gm/dL Hct 33.6 L (39.0-53.0) % Plt Count 110 L (150-450) k/uL Neutrophils # 10.2 H (1.3-7.7) k/uL Lymphocytes # 0.6 L (1.0-4.8) k/uL PT 12.1 H (9.0-12.0) sec INR 1.2 H (<1.2) APTT 37.8 H (22.0-30.0) sec ABG pH (7.35-7.45) ABG pCO2 (35-45) mmHg ABG pO2 (83-108) mmHg ABG Total CO2 (19-24) mmol/L ABG O2 Saturation (94-97) % ABG Hematocrit (34.0-46.0) % ABG Sodium (135-146) mmol/L ABG Potassium (3.4-4.5) mmol/L ABG Ionized Calcium (4.5-5.3) mg/dL ABG Glucose (75-99) mg/dL ABG Lactic Acid (0.5-1.6) mmol/L Hemoglobin (13.0-17.5) gm/dL Chloride 109 H (98-107) mmol/L Glucose 105 H (74-99) mg/dL POC Glucose (mg/dL) (75-99) mg/dL Calcium 7.8 L (8.4-10.2) mg/dL Magnesium 2.6 H (1.6-2.3) mg/dL Alkaline Phosphatase 23 L (38-126) U/L Total Protein 5.0 L (6.3-8.2) g/dL Albumin 2.8 L (3.5-5.0) g/dL Arterial Blood Potassium (3.4-4.5) mmol/L Arterial Blood Glucose (75-99) mg/dL Crossmatch 12/21/18 12/21/18 12/21/18 Range/Units 14:03 14:14 15:09 WBC (3.8-10.6) k/uL RBC (4.30-5.90) m/uL Hgb (13.0-17.5) gm/dL Hct (39.0-53.0) % Plt Count (150-450) k/uL Neutrophils # (1.3-7.7) k/uL Lymphocytes # (1.0-4.8) k/uL PT (9.0-12.0) sec INR (<1.2) APTT (22.0-30.0) sec ABG pH (7.35-7.45) ABG pCO2 (35-45) mmHg ABG pO2 127 H (83-108) mmHg ABG Total CO2 26 H (19-24) mmol/L ABG O2 Saturation 99.2 H (94-97) % ABG Hematocrit (34.0-46.0) % ABG Sodium (135-146) mmol/L ABG Potassium (3.4-4.5) mmol/L ABG Ionized Calcium (4.5-5.3) mg/dL ABG Glucose (75-99) mg/dL ABG Lactic Acid (0.5-1.6) mmol/L Hemoglobin (13.0-17.5) gm/dL Chloride (98-107) mmol/L Glucose (74-99) mg/dL POC Glucose (mg/dL) 109 H 109 H (75-99) mg/dL Calcium (8.4-10.2) mg/dL Magnesium (1.6-2.3) mg/dL Alkaline Phosphatase (38-126) U/L Total Protein (6.3-8.2) g/dL Albumin (3.5-5.0) g/dL Arterial Blood Potassium (3.4-4.5) mmol/L Arterial Blood Glucose (75-99) mg/dL Crossmatch 07/29/18 07/29/18 07/29/18 Range/Units 16:09 16:10 17:03 WBC (3.8-10.6) k/uL RBC 3.86 L (4.30-5.90) m/uL Hgb 12.5 L (13.0-17.5) gm/dL Hct 37.2 L (39.0-53.0) % Plt Count 111 L (150-450) k/uL Neutrophils # 8.2 H (1.3-7.7) k/uL Lymphocytes # 0.8 L (1.0-4.8) k/uL PT (9.0-12.0) sec INR (<1.2) APTT (22.0-30.0) sec ABG pH (7.35-7.45) ABG pCO2 (35-45) mmHg ABG pO2 (83-108) mmHg ABG Total CO2 (19-24) mmol/L ABG O2 Saturation (94-97) % ABG Hematocrit (34.0-46.0) % ABG Sodium (135-146) mmol/L ABG Potassium (3.4-4.5) mmol/L ABG Ionized Calcium (4.5-5.3) mg/dL ABG Glucose (75-99) mg/dL ABG Lactic Acid (0.5-1.6) mmol/L Hemoglobin (13.0-17.5) gm/dL Chloride (98-107) mmol/L Glucose (74-99) mg/dL POC Glucose (mg/dL) 118 H 173 H (75-99) mg/dL Calcium (8.4-10.2) mg/dL Magnesium (1.6-2.3) mg/dL Alkaline Phosphatase (38-126) U/L Total Protein (6.3-8.2) g/dL Albumin (3.5-5.0) g/dL Arterial Blood Potassium (3.4-4.5) mmol/L Arterial Blood Glucose (75-99) mg/dL Crossmatch 07/29/18 07/29/18 07/29/18 Range/Units 17:04 18:05 19:05 WBC (3.8-10.6) k/uL RBC (4.30-5.90) m/uL Hgb (13.0-17.5) gm/dL Hct (39.0-53.0) % Plt Count (150-450) k/uL Neutrophils # (1.3-7.7) k/uL Lymphocytes # (1.0-4.8) k/uL PT (9.0-12.0) sec INR (<1.2) APTT (22.0-30.0) sec ABG pH 7.33 L (7.35-7.45) ABG pCO2 (35-45) mmHg ABG pO2 (83-108) mmHg ABG Total CO2 (19-24) mmol/L ABG O2 Saturation 97.6 H (94-97) % ABG Hematocrit (34.0-46.0) % ABG Sodium (135-146) mmol/L ABG Potassium (3.4-4.5) mmol/L ABG Ionized Calcium (4.5-5.3) mg/dL ABG Glucose (75-99) mg/dL ABG Lactic Acid (0.5-1.6) mmol/L Hemoglobin (13.0-17.5) gm/dL Chloride (98-107) mmol/L Glucose (74-99) mg/dL POC Glucose (mg/dL) 155 H 159 H (75-99) mg/dL Calcium (8.4-10.2) mg/dL Magnesium (1.6-2.3) mg/dL Alkaline Phosphatase (38-126) U/L Total Protein (6.3-8.2) g/dL Albumin (3.5-5.0) g/dL Arterial Blood Potassium (3.4-4.5) mmol/L Arterial Blood Glucose (75-99) mg/dL Crossmatch 07/29/18 07/29/18 07/29/18 Range/Units 19:55 20:00 21:11 WBC 13.2 H (3.8-10.6) k/uL RBC 3.86 L (4.30-5.90) m/uL Hgb 12.5 L (13.0-17.5) gm/dL Hct 37.1 L (39.0-53.0) % Plt Count 139 L (150-450) k/uL Neutrophils # 12.1 H (1.3-7.7) k/uL Lymphocytes # 0.4 L (1.0-4.8) k/uL PT (9.0-12.0) sec INR (<1.2) APTT (22.0-30.0) sec ABG pH (7.35-7.45) ABG pCO2 (35-45) mmHg ABG pO2 (83-108) mmHg ABG Total CO2 (19-24) mmol/L ABG O2 Saturation (94-97) % ABG Hematocrit (34.0-46.0) % ABG Sodium (135-146) mmol/L ABG Potassium (3.4-4.5) mmol/L ABG Ionized Calcium (4.5-5.3) mg/dL ABG Glucose (75-99) mg/dL ABG Lactic Acid (0.5-1.6) mmol/L Hemoglobin (13.0-17.5) gm/dL Chloride (98-107) mmol/L Glucose (74-99) mg/dL POC Glucose (mg/dL) 172 H 153 H (75-99) mg/dL Calcium (8.4-10.2) mg/dL Magnesium (1.6-2.3) mg/dL Alkaline Phosphatase (38-126) U/L Total Protein (6.3-8.2) g/dL Albumin (3.5-5.0) g/dL Arterial Blood Potassium (3.4-4.5) mmol/L Arterial Blood Glucose (75-99) mg/dL Crossmatch 07/29/18 07/29/18 07/30/18 Range/Units 22:17 23:01 01:10 WBC (3.8-10.6) k/uL RBC (4.30-5.90) m/uL Hgb (13.0-17.5) gm/dL Hct (39.0-53.0) % Plt Count (150-450) k/uL Neutrophils # (1.3-7.7) k/uL Lymphocytes # (1.0-4.8) k/uL PT (9.0-12.0) sec INR (<1.2) APTT (22.0-30.0) sec ABG pH (7.35-7.45) ABG pCO2 (35-45) mmHg ABG pO2 (83-108) mmHg ABG Total CO2 (19-24) mmol/L ABG O2 Saturation (94-97) % ABG Hematocrit (34.0-46.0) % ABG Sodium (135-146) mmol/L ABG Potassium (3.4-4.5) mmol/L ABG Ionized Calcium (4.5-5.3) mg/dL ABG Glucose (75-99) mg/dL ABG Lactic Acid (0.5-1.6) mmol/L Hemoglobin (13.0-17.5) gm/dL Chloride (98-107) mmol/L Glucose (74-99) mg/dL POC Glucose (mg/dL) 141 H 153 H 151 H (75-99) mg/dL Calcium (8.4-10.2) mg/dL Magnesium (1.6-2.3) mg/dL Alkaline Phosphatase (38-126) U/L Total Protein (6.3-8.2) g/dL Albumin (3.5-5.0) g/dL Arterial Blood Potassium (3.4-4.5) mmol/L Arterial Blood Glucose (75-99) mg/dL Crossmatch 07/30/18 07/30/18 07/30/18 Range/Units 02:10 03:09 04:05 WBC 12.9 H (3.8-10.6) k/uL RBC 3.82 L (4.30-5.90) m/uL Hgb 11.9 L (13.0-17.5) gm/dL Hct 36.6 L (39.0-53.0) % Plt Count 137 L (150-450) k/uL Neutrophils # 11.8 H (1.3-7.7) k/uL Lymphocytes # 0.4 L (1.0-4.8) k/uL PT (9.0-12.0) sec INR (<1.2) APTT (22.0-30.0) sec ABG pH (7.35-7.45) ABG pCO2 (35-45) mmHg ABG pO2 (83-108) mmHg ABG Total CO2 (19-24) mmol/L ABG O2 Saturation (94-97) % ABG Hematocrit (34.0-46.0) % ABG Sodium (135-146) mmol/L ABG Potassium (3.4-4.5) mmol/L ABG Ionized Calcium (4.5-5.3) mg/dL ABG Glucose (75-99) mg/dL ABG Lactic Acid (0.5-1.6) mmol/L Hemoglobin (13.0-17.5) gm/dL Chloride (98-107) mmol/L Glucose (74-99) mg/dL POC Glucose (mg/dL) 147 H 139 H (75-99) mg/dL Calcium (8.4-10.2) mg/dL Magnesium (1.6-2.3) mg/dL Alkaline Phosphatase (38-126) U/L Total Protein (6.3-8.2) g/dL Albumin (3.5-5.0) g/dL Arterial Blood Potassium (3.4-4.5) mmol/L Arterial Blood Glucose (75-99) mg/dL Crossmatch 07/30/18 07/30/18 07/30/18 Range/Units 04:05 04:09 05:11 WBC (3.8-10.6) k/uL RBC (4.30-5.90) m/uL Hgb (13.0-17.5) gm/dL Hct (39.0-53.0) % Plt Count (150-450) k/uL Neutrophils # (1.3-7.7) k/uL Lymphocytes # (1.0-4.8) k/uL PT (9.0-12.0) sec INR (<1.2) APTT (22.0-30.0) sec ABG pH (7.35-7.45) ABG pCO2 (35-45) mmHg ABG pO2 (83-108) mmHg ABG Total CO2 (19-24) mmol/L ABG O2 Saturation (94-97) % ABG Hematocrit (34.0-46.0) % ABG Sodium (135-146) mmol/L ABG Potassium (3.4-4.5) mmol/L ABG Ionized Calcium (4.5-5.3) mg/dL ABG Glucose (75-99) mg/dL ABG Lactic Acid (0.5-1.6) mmol/L Hemoglobin (13.0-17.5) gm/dL Chloride (98-107) mmol/L Glucose 119 H (74-99) mg/dL POC Glucose (mg/dL) 123 H 134 H (75-99) mg/dL Calcium 8.2 L (8.4-10.2) mg/dL Magnesium (1.6-2.3) mg/dL Alkaline Phosphatase 30 L (38-126) U/L Total Protein 5.6 L (6.3-8.2) g/dL Albumin 3.2 L (3.5-5.0) g/dL Arterial Blood Potassium (3.4-4.5) mmol/L Arterial Blood Glucose (75-99) mg/dL Crossmatch 07/30/18 07/30/18 07/30/18 Range/Units 06:21 07:09 08:41 WBC (3.8-10.6) k/uL RBC (4.30-5.90) m/uL Hgb (13.0-17.5) gm/dL Hct (39.0-53.0) % Plt Count (150-450) k/uL Neutrophils # (1.3-7.7) k/uL Lymphocytes # (1.0-4.8) k/uL PT (9.0-12.0) sec INR (<1.2) APTT (22.0-30.0) sec ABG pH (7.35-7.45) ABG pCO2 (35-45) mmHg ABG pO2 (83-108) mmHg ABG Total CO2 (19-24) mmol/L ABG O2 Saturation (94-97) % ABG Hematocrit (34.0-46.0) % ABG Sodium (135-146) mmol/L ABG Potassium (3.4-4.5) mmol/L ABG Ionized Calcium (4.5-5.3) mg/dL ABG Glucose (75-99) mg/dL ABG Lactic Acid (0.5-1.6) mmol/L Hemoglobin (13.0-17.5) gm/dL Chloride (98-107) mmol/L Glucose (74-99) mg/dL POC Glucose (mg/dL) 132 H 127 H 130 H (75-99) mg/dL Calcium (8.4-10.2) mg/dL Magnesium (1.6-2.3) mg/dL Alkaline Phosphatase (38-126) U/L Total Protein (6.3-8.2) g/dL Albumin (3.5-5.0) g/dL Arterial Blood Potassium (3.4-4.5) mmol/L Arterial Blood Glucose (75-99) mg/dL Crossmatch 07/30/18 Range/Units 10:00 WBC (3.8-10.6) k/uL RBC (4.30-5.90) m/uL Hgb (13.0-17.5) gm/dL Hct (39.0-53.0) % Plt Count (150-450) k/uL Neutrophils # (1.3-7.7) k/uL Lymphocytes # (1.0-4.8) k/uL PT (9.0-12.0) sec INR (<1.2) APTT (22.0-30.0) sec ABG pH (7.35-7.45) ABG pCO2 (35-45) mmHg ABG pO2 (83-108) mmHg ABG Total CO2 (19-24) mmol/L ABG O2 Saturation (94-97) % ABG Hematocrit (34.0-46.0) % ABG Sodium (135-146) mmol/L ABG Potassium (3.4-4.5) mmol/L ABG Ionized Calcium (4.5-5.3) mg/dL ABG Glucose (75-99) mg/dL ABG Lactic Acid (0.5-1.6) mmol/L Hemoglobin (13.0-17.5) gm/dL Chloride (98-107) mmol/L Glucose (74-99) mg/dL POC Glucose (mg/dL) 125 H (75-99) mg/dL Calcium (8.4-10.2) mg/dL Magnesium (1.6-2.3) mg/dL Alkaline Phosphatase (38-126) U/L Total Protein (6.3-8.2) g/dL Albumin (3.5-5.0) g/dL Arterial Blood Potassium (3.4-4.5) mmol/L Arterial Blood Glucose (75-99) mg/dL Crossmatch Assessment and Plan Assessment: Impression: #1 Coronary artery disease status post coronary artery bypass grafting utilizing a SIFUENTES to the LAD, left radial artery to the posterior descending artery. Postoperative day #1. #2 Atrial fibrillation status post cardioversion. #3 Hyperlipidemia. #4 History of hypertension. #5 History of obstructive sleep apnea utilizing CPAP in the outpatient setting. #6 Remote history of smoking. Plan: The patient was seen and evaluated by Dr. Wise. We are covering for Dr. Cline. Chest x-ray and labs were reviewed. Chest tubes remain in place. He is working well with the incentive spirometer. Increase his activity as tolerated. We'll continue to follow and make further recommendations based on his clinical status. I, the cosigning physician, performed a history & physical examination of the patient. Lungs sounds with crackles in the bilateral posterior bases. Maintaining good O2 saturations in the 90s on room air. I discussed the assessment and plan of care with my nurse practitioner, Samia Cadena. I attest to the above note as dictated by her.
[2018-07-30 12:11] LABS: Glucose,Whole Blood 124 mg/dL (75-99)
[2018-07-30] MEDS: ALBUMIN HUMAN 5% 250 ML in EMPTY BAG 1 BAG IVPB PRN ×2 (12:14→14:39)
--- NOTE | 2018-07-30 12:23 | P.PN ---
Subjective Progress Note Date: 07/30/18 Principal diagnosis: Double vessel coronary artery disease, preserved left ventricular function, preoperative paroxysmal atrial fibrillation, hypertension, hyperlipidemia, remote history of tobacco dependence quit smoking in 1974, obstructive sleep apnea with CPAP use at home and strong family history of coronary artery disease with his brother passing away at age 30 from a myocardial infarction. POD #1 double arterial coronary artery bypass grafting using the left internal mammary artery to left anterior descending coronary artery, the left radial artery from the aorta to the posterior descending coronary artery. Bilateral pulmonary vein isolation using the bipolar radiofrequency clamp from the [employer]. Exclusion of the left atrial appendage using a #40 mm Atriclip. Intraoperative transesophageal echocardiogram and epi-aortic scanning. Endoscopic harvesting of the left radial artery. Intraoperative graft flow measurement using the [employer] system. Patient is sitting up to the bedside chair. He is in no acute distress. He currently denies any complaints of pain or shortness of breath at this time. He is on room air with oxygen saturations of 95%. He was successfully extubated yesterday evening at 17:28 PM. He remains hemodynamically stable. Nitroglycerin drip remains infusing for radial artery spasm prevention. Objective - Vital Signs Vital signs: Vital Signs Temp 99.5 F 07/30/18 08:00 Pulse 82 07/30/18 11:43 Resp 26 H 07/30/18 11:00 BP 158/77 07/29/18 06:02 Pulse Ox 94 L 07/30/18 11:00 Intake & Output 07/29/18 07/30/18 07/30/18 18:59 06:59 18:59 Intake Total 556.886 968.916 332.0 Output Total 3195 888 205 Balance -2638.114 80.916 127.0 Weight 84.83 kg Intake: IV 515.5 914.5 332.0 ACETAMINOPHEN IV (For NPO 100 100 ) 1,000 mg In Empty Bag 1 bag @ 400 mls/hr IVPB Q6HR TANA Rx#:[id number] CO/CI 80 110 40 Lactated Ringers 1,000 ml 250 550 250 @ 50 mls/hr IV .Q20H TANA Rx#:[id number] Nitroglycerin-D5w Pmx 50 7.5 16.5 3.0 mg In Dextrose/Water 1 250ml.bag @ 5 MCG/MIN 1.5 mls/hr IV .Q24H TANA Rx#: [id number] Pressure Bag 45 108 39 ceFAZolin 2,000 mg In 30 30 Sodium Chloride 0.9% 30 ml @ Per Protocol IVPB ONCE ONE Rx#:[id number] Intake, IV Titration 41.386 54.416 Amount Clevidipine Butyrate 25 1 34.000 mg In Empty Bag 1 bag @ 1 MG/HR 2 mls/hr IV .Q24H TANA Rx#:[id number] Insulin Regular 100 unit 2.226 20.416 In Sodium Chloride 0.9% 100 ml @ Per Protocol IV .Q0M TANA Rx#:[id number] Propofol 1,000 mg In 38.16 Empty Bag 1 bag @ Titrate IV .Q0M TANA Rx#: [id number] Output: Chest Tube Drainage 490 320 90 Left 190 100 10 MSx2 270 155 70 Right 30 65 10 Urine 1205 568 115 Estimated Blood Loss 1500 Other: Voiding Method Indwelling Catheter Indwelling Catheter Indwelling Catheter ABP, PAP, CO, CI - Last Documented Arterial Blood Pressure 130/54 Pulmonary Artery Pressure 24/19 Cardiac Output 8.5 Cardiac Index 4.2 - Constitutional General appearance: Present: cooperative, no acute distress - Respiratory Details: Lungs sounds are essentially clear throughout, few scattered crackles to his bilateral bases. Respirations are symmetrical and nonlabored. Oxygen saturation are 95% on room air. Achieving 1000 mL on his incentive spirometry. Mediastinal, left and right pleural Brennen chest tubes remain in place to continuous low wall suction at -20 cm H2O. No air leak is present. Draining thin serosanguineous drainage. Mediastinal chest tubes drained 55 mL output in the last 8 hours, 500 mL since surgery. Right pleural chest tube drained 20 mL in the last 8 hours, 90 mL since surgery. Left pleural chest tube drained 60 mL output in the last 8 hours, 290 milliliters since surgery. - Cardiovascular Details: Regular rhythm and rate. S1 and S2 present, negative for S3, gallop or murmur. Sternum is stable. Bedside telemetry showing normal sinus rhythm heart rate 71. Atrial and ventricular epicardial pacemaker wires remain in place and grounded. No edema present. Heart hugger is in place and he is demonstrating appropriate use. Right IJ Cordis with Poyen-Anum catheter in place, current cardiac output 8.1, cardiac index 4.0, PA pressures 23/19, CVP 12 mmHg. Right radial arterial line in place and functioning. Knee-high RILEY hose and sequential compression devices in place to his bilateral lower extremities. - Gastrointestinal Gastrointestinal Comment(s): Abdomen is soft, nontender and nondistended. Active bowel sounds all 4 abdominal quadrants. Tolerating oral intake. Negative flatus. - Genitourinary Genitourinary Comment(s): Villeda catheter for accurate I&O. Draining clear yellow urine. 250 mL output in the last 8 hours. - Integumentary Integumentary Comment(s): Skin is warm and dry. No clubbing or cyanosis present. Midline sternal incision is clean, dry and approximated. No drainage or redness present. Dressing is clean, dry and intact. Left radial harvest sites clean, dry and approximated. No drainage or redness present. EUGENIA drain in place to his left arm, draining thin serosanguineous drainage. 20 mL output in the last 8 hours. - Neurologic Neurologic: Present: CNII-XII intact - Musculoskeletal Musculoskeletal: Present: gait normal, strength equal bilaterally - Psychiatric Psychiatric: Present: A&O x's 3, appropriate affect, intact judgment & insight - Allied health notes Allied health notes reviewed: nursing - Labs CBC & Chem 7: 07/30/18 04:05 07/30/18 04:05 Labs: Abnormal Lab Results - Last 24 Hours (Table) 07/25/18 07/29/18 07/29/18 Range/Units 12:44 11:39 13:01 WBC (3.8-10.6) k/uL RBC (4.30-5.90) m/uL Hgb (13.0-17.5) gm/dL Hct (39.0-53.0) % Plt Count (150-450) k/uL Neutrophils # (1.3-7.7) k/uL Lymphocytes # (1.0-4.8) k/uL PT (9.0-12.0) sec INR (<1.2) APTT (22.0-30.0) sec ABG pH 7.31 L (7.35-7.45) ABG pCO2 48 H (35-45) mmHg ABG pO2 336 H 70 L (83-108) mmHg ABG Total CO2 25 H 25 H (19-24) mmol/L ABG O2 Saturation 99.8 H 93.5 L (94-97) % ABG Hematocrit 31 L 31 L (34.0-46.0) % ABG Sodium 134 L (135-146) mmol/L ABG Potassium 5.3 H (3.4-4.5) mmol/L ABG Ionized Calcium 4.2 L 4.1 L (4.5-5.3) mg/dL ABG Glucose 197 H 132 H (75-99) mg/dL ABG Lactic Acid 2.1 H (0.5-1.6) mmol/L Hemoglobin 10.1 L 10.0 L (13.0-17.5) gm/dL Chloride (98-107) mmol/L Glucose (74-99) mg/dL POC Glucose (mg/dL) (75-99) mg/dL Calcium (8.4-10.2) mg/dL Magnesium (1.6-2.3) mg/dL Alkaline Phosphatase (38-126) U/L Total Protein (6.3-8.2) g/dL Albumin (3.5-5.0) g/dL Arterial Blood Potassium 5.3 H (3.4-4.5) mmol/L Arterial Blood Glucose 197 H 132 H (75-99) mg/dL Crossmatch See Detail 07/29/18 07/29/18 07/29/18 Range/Units 14:02 14:02 14:02 WBC 11.5 H (3.8-10.6) k/uL RBC 3.49 L (4.30-5.90) m/uL Hgb 11.3 L D (13.0-17.5) gm/dL Hct 33.6 L (39.0-53.0) % Plt Count 110 L (150-450) k/uL Neutrophils # 10.2 H (1.3-7.7) k/uL Lymphocytes # 0.6 L (1.0-4.8) k/uL PT 12.1 H (9.0-12.0) sec INR 1.2 H (<1.2) APTT 37.8 H (22.0-30.0) sec ABG pH (7.35-7.45) ABG pCO2 (35-45) mmHg ABG pO2 (83-108) mmHg ABG Total CO2 (19-24) mmol/L ABG O2 Saturation (94-97) % ABG Hematocrit (34.0-46.0) % ABG Sodium (135-146) mmol/L ABG Potassium (3.4-4.5) mmol/L ABG Ionized Calcium (4.5-5.3) mg/dL ABG Glucose (75-99) mg/dL ABG Lactic Acid (0.5-1.6) mmol/L Hemoglobin (13.0-17.5) gm/dL Chloride 109 H (98-107) mmol/L Glucose 105 H (74-99) mg/dL POC Glucose (mg/dL) (75-99) mg/dL Calcium 7.8 L (8.4-10.2) mg/dL Magnesium 2.6 H (1.6-2.3) mg/dL Alkaline Phosphatase 23 L (38-126) U/L Total Protein 5.0 L (6.3-8.2) g/dL Albumin 2.8 L (3.5-5.0) g/dL Arterial Blood Potassium (3.4-4.5) mmol/L Arterial Blood Glucose (75-99) mg/dL Crossmatch 07/29/18 07/29/18 07/29/18 Range/Units 14:03 14:14 15:09 WBC (3.8-10.6) k/uL RBC (4.30-5.90) m/uL Hgb (13.0-17.5) gm/dL Hct (39.0-53.0) % Plt Count (150-450) k/uL Neutrophils # (1.3-7.7) k/uL Lymphocytes # (1.0-4.8) k/uL PT (9.0-12.0) sec INR (<1.2) APTT (22.0-30.0) sec ABG pH (7.35-7.45) ABG pCO2 (35-45) mmHg ABG pO2 127 H (83-108) mmHg ABG Total CO2 26 H (19-24) mmol/L ABG O2 Saturation 99.2 H (94-97) % ABG Hematocrit (34.0-46.0) % ABG Sodium (135-146) mmol/L ABG Potassium (3.4-4.5) mmol/L ABG Ionized Calcium (4.5-5.3) mg/dL ABG Glucose (75-99) mg/dL ABG Lactic Acid (0.5-1.6) mmol/L Hemoglobin (13.0-17.5) gm/dL Chloride (98-107) mmol/L Glucose (74-99) mg/dL POC Glucose (mg/dL) 109 H 109 H (75-99) mg/dL Calcium (8.4-10.2) mg/dL Magnesium (1.6-2.3) mg/dL Alkaline Phosphatase (38-126) U/L Total Protein (6.3-8.2) g/dL Albumin (3.5-5.0) g/dL Arterial Blood Potassium (3.4-4.5) mmol/L Arterial Blood Glucose (75-99) mg/dL Crossmatch 07/29/18 07/29/18 07/29/18 Range/Units 16:09 16:10 17:03 WBC (3.8-10.6) k/uL RBC 3.86 L (4.30-5.90) m/uL Hgb 12.5 L (13.0-17.5) gm/dL Hct 37.2 L (39.0-53.0) % Plt Count 111 L (150-450) k/uL Neutrophils # 8.2 H (1.3-7.7) k/uL Lymphocytes # 0.8 L (1.0-4.8) k/uL PT (9.0-12.0) sec INR (<1.2) APTT (22.0-30.0) sec ABG pH (7.35-7.45) ABG pCO2 (35-45) mmHg ABG pO2 (83-108) mmHg ABG Total CO2 (19-24) mmol/L ABG O2 Saturation (94-97) % ABG Hematocrit (34.0-46.0) % ABG Sodium (135-146) mmol/L ABG Potassium (3.4-4.5) mmol/L ABG Ionized Calcium (4.5-5.3) mg/dL ABG Glucose (75-99) mg/dL ABG Lactic Acid (0.5-1.6) mmol/L Hemoglobin (13.0-17.5) gm/dL Chloride (98-107) mmol/L Glucose (74-99) mg/dL POC Glucose (mg/dL) 118 H 173 H (75-99) mg/dL Calcium (8.4-10.2) mg/dL Magnesium (1.6-2.3) mg/dL Alkaline Phosphatase (38-126) U/L Total Protein (6.3-8.2) g/dL Albumin (3.5-5.0) g/dL Arterial Blood Potassium (3.4-4.5) mmol/L Arterial Blood Glucose (75-99) mg/dL Crossmatch 07/29/18 07/29/18 07/29/18 Range/Units 17:04 18:05 19:05 WBC (3.8-10.6) k/uL RBC (4.30-5.90) m/uL Hgb (13.0-17.5) gm/dL Hct (39.0-53.0) % Plt Count (150-450) k/uL Neutrophils # (1.3-7.7) k/uL Lymphocytes # (1.0-4.8) k/uL PT (9.0-12.0) sec INR (<1.2) APTT (22.0-30.0) sec ABG pH 7.33 L (7.35-7.45) ABG pCO2 (35-45) mmHg ABG pO2 (83-108) mmHg ABG Total CO2 (19-24) mmol/L ABG O2 Saturation 97.6 H (94-97) % ABG Hematocrit (34.0-46.0) % ABG Sodium (135-146) mmol/L ABG Potassium (3.4-4.5) mmol/L ABG Ionized Calcium (4.5-5.3) mg/dL ABG Glucose (75-99) mg/dL ABG Lactic Acid (0.5-1.6) mmol/L Hemoglobin (13.0-17.5) gm/dL Chloride (98-107) mmol/L Glucose (74-99) mg/dL POC Glucose (mg/dL) 155 H 159 H (75-99) mg/dL Calcium (8.4-10.2) mg/dL Magnesium (1.6-2.3) mg/dL Alkaline Phosphatase (38-126) U/L Total Protein (6.3-8.2) g/dL Albumin (3.5-5.0) g/dL Arterial Blood Potassium (3.4-4.5) mmol/L Arterial Blood Glucose (75-99) mg/dL Crossmatch 07/29/18 07/29/18 07/29/18 Range/Units 19:55 20:00 21:11 WBC 13.2 H (3.8-10.6) k/uL RBC 3.86 L (4.30-5.90) m/uL Hgb 12.5 L (13.0-17.5) gm/dL Hct 37.1 L (39.0-53.0) % Plt Count 139 L (150-450) k/uL Neutrophils # 12.1 H (1.3-7.7) k/uL Lymphocytes # 0.4 L (1.0-4.8) k/uL PT (9.0-12.0) sec INR (<1.2) APTT (22.0-30.0) sec ABG pH (7.35-7.45) ABG pCO2 (35-45) mmHg ABG pO2 (83-108) mmHg ABG Total CO2 (19-24) mmol/L ABG O2 Saturation (94-97) % ABG Hematocrit (34.0-46.0) % ABG Sodium (135-146) mmol/L ABG Potassium (3.4-4.5) mmol/L ABG Ionized Calcium (4.5-5.3) mg/dL ABG Glucose (75-99) mg/dL ABG Lactic Acid (0.5-1.6) mmol/L Hemoglobin (13.0-17.5) gm/dL Chloride (98-107) mmol/L Glucose (74-99) mg/dL POC Glucose (mg/dL) 172 H 153 H (75-99) mg/dL Calcium (8.4-10.2) mg/dL Magnesium (1.6-2.3) mg/dL Alkaline Phosphatase (38-126) U/L Total Protein (6.3-8.2) g/dL Albumin (3.5-5.0) g/dL Arterial Blood Potassium (3.4-4.5) mmol/L Arterial Blood Glucose (75-99) mg/dL Crossmatch 07/29/18 07/29/18 07/30/18 Range/Units 22:17 23:01 01:10 WBC (3.8-10.6) k/uL RBC (4.30-5.90) m/uL Hgb (13.0-17.5) gm/dL Hct (39.0-53.0) % Plt Count (150-450) k/uL Neutrophils # (1.3-7.7) k/uL Lymphocytes # (1.0-4.8) k/uL PT (9.0-12.0) sec INR (<1.2) APTT (22.0-30.0) sec ABG pH (7.35-7.45) ABG pCO2 (35-45) mmHg ABG pO2 (83-108) mmHg ABG Total CO2 (19-24) mmol/L ABG O2 Saturation (94-97) % ABG Hematocrit (34.0-46.0) % ABG Sodium (135-146) mmol/L ABG Potassium (3.4-4.5) mmol/L ABG Ionized Calcium (4.5-5.3) mg/dL ABG Glucose (75-99) mg/dL ABG Lactic Acid (0.5-1.6) mmol/L Hemoglobin (13.0-17.5) gm/dL Chloride (98-107) mmol/L Glucose (74-99) mg/dL POC Glucose (mg/dL) 141 H 153 H 151 H (75-99) mg/dL Calcium (8.4-10.2) mg/dL Magnesium (1.6-2.3) mg/dL Alkaline Phosphatase (38-126) U/L Total Protein (6.3-8.2) g/dL Albumin (3.5-5.0) g/dL Arterial Blood Potassium (3.4-4.5) mmol/L Arterial Blood Glucose (75-99) mg/dL Crossmatch 07/30/18 07/30/18 07/30/18 Range/Units 02:10 03:09 04:05 WBC 12.9 H (3.8-10.6) k/uL RBC 3.82 L (4.30-5.90) m/uL Hgb 11.9 L (13.0-17.5) gm/dL Hct 36.6 L (39.0-53.0) % Plt Count 137 L (150-450) k/uL Neutrophils # 11.8 H (1.3-7.7) k/uL Lymphocytes # 0.4 L (1.0-4.8) k/uL PT (9.0-12.0) sec INR (<1.2) APTT (22.0-30.0) sec ABG pH (7.35-7.45) ABG pCO2 (35-45) mmHg ABG pO2 (83-108) mmHg ABG Total CO2 (19-24) mmol/L ABG O2 Saturation (94-97) % ABG Hematocrit (34.0-46.0) % ABG Sodium (135-146) mmol/L ABG Potassium (3.4-4.5) mmol/L ABG Ionized Calcium (4.5-5.3) mg/dL ABG Glucose (75-99) mg/dL ABG Lactic Acid (0.5-1.6) mmol/L Hemoglobin (13.0-17.5) gm/dL Chloride (98-107) mmol/L Glucose (74-99) mg/dL POC Glucose (mg/dL) 147 H 139 H (75-99) mg/dL Calcium (8.4-10.2) mg/dL Magnesium (1.6-2.3) mg/dL Alkaline Phosphatase (38-126) U/L Total Protein (6.3-8.2) g/dL Albumin (3.5-5.0) g/dL Arterial Blood Potassium (3.4-4.5) mmol/L Arterial Blood Glucose (75-99) mg/dL Crossmatch 07/30/18 07/30/18 07/30/18 Range/Units 04:05 04:09 05:11 WBC (3.8-10.6) k/uL RBC (4.30-5.90) m/uL Hgb (13.0-17.5) gm/dL Hct (39.0-53.0) % Plt Count (150-450) k/uL Neutrophils # (1.3-7.7) k/uL Lymphocytes # (1.0-4.8) k/uL PT (9.0-12.0) sec INR (<1.2) APTT (22.0-30.0) sec ABG pH (7.35-7.45) ABG pCO2 (35-45) mmHg ABG pO2 (83-108) mmHg ABG Total CO2 (19-24) mmol/L ABG O2 Saturation (94-97) % ABG Hematocrit (34.0-46.0) % ABG Sodium (135-146) mmol/L ABG Potassium (3.4-4.5) mmol/L ABG Ionized Calcium (4.5-5.3) mg/dL ABG Glucose (75-99) mg/dL ABG Lactic Acid (0.5-1.6) mmol/L Hemoglobin (13.0-17.5) gm/dL Chloride (98-107) mmol/L Glucose 119 H (74-99) mg/dL POC Glucose (mg/dL) 123 H 134 H (75-99) mg/dL Calcium 8.2 L (8.4-10.2) mg/dL Magnesium (1.6-2.3) mg/dL Alkaline Phosphatase 30 L (38-126) U/L Total Protein 5.6 L (6.3-8.2) g/dL Albumin 3.2 L (3.5-5.0) g/dL Arterial Blood Potassium (3.4-4.5) mmol/L Arterial Blood Glucose (75-99) mg/dL Crossmatch 07/30/18 07/30/18 07/30/18 Range/Units 06:21 07:09 08:41 WBC (3.8-10.6) k/uL RBC (4.30-5.90) m/uL Hgb (13.0-17.5) gm/dL Hct (39.0-53.0) % Plt Count (150-450) k/uL Neutrophils # (1.3-7.7) k/uL Lymphocytes # (1.0-4.8) k/uL PT (9.0-12.0) sec INR (<1.2) APTT (22.0-30.0) sec ABG pH (7.35-7.45) ABG pCO2 (35-45) mmHg ABG pO2 (83-108) mmHg ABG Total CO2 (19-24) mmol/L ABG O2 Saturation (94-97) % ABG Hematocrit (34.0-46.0) % ABG Sodium (135-146) mmol/L ABG Potassium (3.4-4.5) mmol/L ABG Ionized Calcium (4.5-5.3) mg/dL ABG Glucose (75-99) mg/dL ABG Lactic Acid (0.5-1.6) mmol/L Hemoglobin (13.0-17.5) gm/dL Chloride (98-107) mmol/L Glucose (74-99) mg/dL POC Glucose (mg/dL) 132 H 127 H 130 H (75-99) mg/dL Calcium (8.4-10.2) mg/dL Magnesium (1.6-2.3) mg/dL Alkaline Phosphatase (38-126) U/L Total Protein (6.3-8.2) g/dL Albumin (3.5-5.0) g/dL Arterial Blood Potassium (3.4-4.5) mmol/L Arterial Blood Glucose (75-99) mg/dL Crossmatch 07/30/18 07/30/18 Range/Units 10:00 11:19 WBC (3.8-10.6) k/uL RBC (4.30-5.90) m/uL Hgb (13.0-17.5) gm/dL Hct (39.0-53.0) % Plt Count (150-450) k/uL Neutrophils # (1.3-7.7) k/uL Lymphocytes # (1.0-4.8) k/uL PT (9.0-12.0) sec INR (<1.2) APTT (22.0-30.0) sec ABG pH (7.35-7.45) ABG pCO2 (35-45) mmHg ABG pO2 (83-108) mmHg ABG Total CO2 (19-24) mmol/L ABG O2 Saturation (94-97) % ABG Hematocrit (34.0-46.0) % ABG Sodium (135-146) mmol/L ABG Potassium (3.4-4.5) mmol/L ABG Ionized Calcium (4.5-5.3) mg/dL ABG Glucose (75-99) mg/dL ABG Lactic Acid (0.5-1.6) mmol/L Hemoglobin (13.0-17.5) gm/dL Chloride (98-107) mmol/L Glucose (74-99) mg/dL POC Glucose (mg/dL) 125 H 132 H (75-99) mg/dL Calcium (8.4-10.2) mg/dL Magnesium (1.6-2.3) mg/dL Alkaline Phosphatase (38-126) U/L Total Protein (6.3-8.2) g/dL Albumin (3.5-5.0) g/dL Arterial Blood Potassium (3.4-4.5) mmol/L Arterial Blood Glucose (75-99) mg/dL Crossmatch - Imaging and Cardiology Chest x-ray: report reviewed, image reviewed Assessment and Plan (1) Persistent atrial fibrillation Current Visit: Yes Status: Acute Code(s): I48.1 - PERSISTENT ATRIAL FIBRILLATION SNOMED Code(s): 991426099 (2) S/P CABG (coronary artery bypass graft) Current Visit: Yes Status: Acute Code(s): Z95.1 - PRESENCE OF AORTOCORONARY BYPASS GRAFT SNOMED Code(s): 056534476 (3) Coronary artery disease Current Visit: No Status: Acute Code(s): I25.10 - ATHSCL HEART DISEASE OF [place] CORONARY ARTERY W/O ANG PCTRS SNOMED Code(s): 00102526 (4) Dyslipidemia Current Visit: No Status: Acute Code(s): E78.5 - HYPERLIPIDEMIA, UNSPECIFIED SNOMED Code(s): 465011051 (5) Family history of coronary artery disease in brother Current Visit: No Status: Acute Code(s): Z82.49 - FAMILY HX OF ISCHEM HEART DIS AND OTH DIS OF THE CIRC SYS SNOMED Code(s): 790001685 (6) History of nicotine dependence Current Visit: No Status: Acute Code(s): Z87.891 - PERSONAL HISTORY OF NICOTINE DEPENDENCE SNOMED Code(s): 854044622 (7) Hypertension Current Visit: No Status: Acute Code(s): I10 - ESSENTIAL (PRIMARY) HYPERTENSION SNOMED Code(s): 45340487 (8) Obstructive sleep apnea on CPAP Current Visit: No Status: Acute Code(s): G47.33 - OBSTRUCTIVE SLEEP APNEA ( ADULT) (PEDIATRIC); Z99.89 - DEPENDENCE ON OTHER ENABLING MACHINES AND DEVICES SNOMED Code(s): 73618155 Plan: 1. Continue aspirin, statin, Plavix, beta andrei. Will increase metoprolol tartrate 25 mg by mouth twice a day. 2. Discontinue nitroglycerin drip once Norvasc 5 mg by mouth daily has been initiated to prevent radial artery spasm. Do not discontinue Norvasc. 3. Wean O2 as tolerated. Encourage incentive spirometry 10 times every hour while awake. 4. Will monitor daily labs and chest x-rays. Electrolyte replacement per protocol. 5. Pain controlled current medication regimen. Toradol has been added. 6. Insulin per primary care service. 7. GI prophylaxis with Protonix. DVT prophylaxis with subcu heparin, SCDs. 8. Mediastinal and right pleural chest tubes discontinued without incident. Left pleural chest tube to remain to continuous low wall suction -20 cm H2O 9. Discontinue Poyen. Please keep cordis to continuous CVP monitoring. 10. Increase activity, ambulate in hallway. PT/OT/cardiac rehab following. 11. More recommendations to follow based on patient's clinical course. Time with Patient: Greater than 30
[2018-07-30] MEDS ORDERED: HYDROcodone/APAP 5-325MG 1 EACH TAB PO PRN ×2 (12:50)
[2018-07-30] MEDS ORDERED: BISACODYL 10 MG SUPP RECTAL PRN (12:50)
[2018-07-30] MEDS ORDERED: MAGNESIUM HYDROXIDE 2,400 MG/10 ML CUP PO PRN (12:50)
--- NOTE | 2018-07-30 14:17 | P.PN ---
Subjective Progress Note Date: 07/30/18 The patient is a 63 yo M with a PMH of HTN, HLD, JOCELINE on CPAP, paroxysmal A-fib s /p cardioversion on 07/12/18, with subsequent reversion to A-fib. The patient then underwent an elective cardiac cath on 07/25/18 showing multi-vessel disease with subsequent recommendation for revascularization surgery. The patient is POD # 1 from CABG w/ SIFUENTES to LAD and LRA to PDA. The patient seen in the SICU sitting up in bed with at the bedside. He notes that he's doing well and endorsed mild sternal post-surgical pain but otherwise denied SOB, dizziness, fever, chills, cough, nausea, or vomiting. Objective - Vital Signs Vital signs: Vital Signs Temp 99.8 F H 07/30/18 12:00 Pulse 80 07/30/18 13:00 Resp 22 07/30/18 13:00 BP 158/77 07/29/18 06:02 Pulse Ox 94 L 07/30/18 13:00 Intake & Output 07/29/18 07/30/18 07/30/18 18:59 06:59 18:59 Intake Total 556.886 968.916 754.0 Output Total 3195 888 250 Balance -2638.114 80.916 504.0 Weight 87.1 kg Intake: IV 515.5 914.5 514.0 ACETAMINOPHEN IV (For NPO 100 100 100 ) 1,000 mg In Empty Bag 1 bag @ 400 mls/hr IVPB Q6HR TANA Rx#:[id number] CO/CI 80 110 40 Lactated Ringers 1,000 ml 250 550 320 @ 20 mls/hr IV .Q24H TANA Rx#:[id number] Nitroglycerin-D5w Pmx 50 7.5 16.5 3.0 mg In Dextrose/Water 1 250ml.bag @ 5 MCG/MIN 1.5 mls/hr IV .Q24H TANA Rx#: [id number] Pressure Bag 45 108 51 ceFAZolin 2,000 mg In 30 30 Sodium Chloride 0.9% 30 ml @ Per Protocol IVPB ONCE ONE Rx#:[id number] Intake, IV Titration 41.386 54.416 Amount Clevidipine Butyrate 25 1 34.000 mg In Empty Bag 1 bag @ 1 MG/HR 2 mls/hr IV .Q24H TANA Rx#:[id number] Insulin Regular 100 unit 2.226 20.416 In Sodium Chloride 0.9% 100 ml @ Per Protocol IV .Q0M TANA Rx#:[id number] Propofol 1,000 mg In 38.16 Empty Bag 1 bag @ Titrate IV .Q0M ATNA Rx#: [id number] Oral 240 Output: Chest Tube Drainage 490 320 90 Left 190 100 10 MSx2 270 155 70 Right 30 65 10 Drainage 25 Left Wrist 25 Urine 1205 568 135 Estimated Blood Loss 1500 Other: Voiding Method Indwelling Catheter Indwelling Catheter Indwelling Catheter ABP, PAP, CO, CI - Last Documented Arterial Blood Pressure 137/59 Pulmonary Artery Pressure 24/19 Cardiac Output 8.5 Cardiac Index 4.2 - Exam General: Non-toxic, in no acute distress, appears stated age HEENT: NC/AT, anicteric sclerae, moist conjunctiva, no lid-lag, PERRLA Cardiovascular: S1/S2 wnl, no murmurs, rubs, or gallops, chest hugger in place Lungs: Clear to auscultation, normal respiratory effort, no accessory muscle use Abdominal: Soft, nontender, non-distended, no guarding, rebound, or rigidity Skin: Warm, dry Extremities: No edema or contractures, L radial artery dressing in place w/ drain in place draining serosanguinous fluid Psychiatric: Alert and oriented to person, place and time, appropriate affect, Intact judgment Neuro: CN II-XII grossly intact, Moving all extremities spontaneously, no focal deficits noted - Labs CBC & Chem 7: 07/30/18 04:05 07/30/18 04:05 Labs: Abnormal Lab Results - Last 24 Hours (Table) 07/25/18 07/29/18 07/29/18 Range/Units 12:44 14:02 14:02 WBC 11.5 H (3.8-10.6) k/uL RBC 3.49 L (4.30-5.90) m/uL Hgb 11.3 L D (13.0-17.5) gm/dL Hct 33.6 L (39.0-53.0) % Plt Count 110 L (150-450) k/uL Neutrophils # 10.2 H (1.3-7.7) k/uL Lymphocytes # 0.6 L (1.0-4.8) k/uL PT (9.0-12.0) sec INR (<1.2) APTT (22.0-30.0) sec ABG pH (7.35-7.45) ABG pO2 (83-108) mmHg ABG Total CO2 (19-24) mmol/L ABG O2 Saturation (94-97) % Chloride 109 H (98-107) mmol/L Glucose 105 H (74-99) mg/dL POC Glucose (mg/dL) (75-99) mg/dL Calcium 7.8 L (8.4-10.2) mg/dL Magnesium 2.6 H (1.6-2.3) mg/dL Alkaline Phosphatase 23 L (38-126) U/L Total Protein 5.0 L (6.3-8.2) g/dL Albumin 2.8 L (3.5-5.0) g/dL Crossmatch See Detail 07/29/18 07/29/18 07/29/18 Range/Units 14:02 14:03 14:14 WBC (3.8-10.6) k/uL RBC (4.30-5.90) m/uL Hgb (13.0-17.5) gm/dL Hct (39.0-53.0) % Plt Count (150-450) k/uL Neutrophils # (1.3-7.7) k/uL Lymphocytes # (1.0-4.8) k/uL PT 12.1 H (9.0-12.0) sec INR 1.2 H (<1.2) APTT 37.8 H (22.0-30.0) sec ABG pH (7.35-7.45) ABG pO2 127 H (83-108) mmHg ABG Total CO2 26 H (19-24) mmol/L ABG O2 Saturation 99.2 H (94-97) % Chloride (98-107) mmol/L Glucose (74-99) mg/dL POC Glucose (mg/dL) 109 H (75-99) mg/dL Calcium (8.4-10.2) mg/dL Magnesium (1.6-2.3) mg/dL Alkaline Phosphatase (38-126) U/L Total Protein (6.3-8.2) g/dL Albumin (3.5-5.0) g/dL Crossmatch 07/29/18 07/29/18 07/29/18 Range/Units 15:09 16:09 16:10 WBC (3.8-10.6) k/uL RBC 3.86 L (4.30-5.90) m/uL Hgb 12.5 L (13.0-17.5) gm/dL Hct 37.2 L (39.0-53.0) % Plt Count 111 L (150-450) k/uL Neutrophils # 8.2 H (1.3-7.7) k/uL Lymphocytes # 0.8 L (1.0-4.8) k/uL PT (9.0-12.0) sec INR (<1.2) APTT (22.0-30.0) sec ABG pH (7.35-7.45) ABG pO2 (83-108) mmHg ABG Total CO2 (19-24) mmol/L ABG O2 Saturation (94-97) % Chloride (98-107) mmol/L Glucose (74-99) mg/dL POC Glucose (mg/dL) 109 H 118 H (75-99) mg/dL Calcium (8.4-10.2) mg/dL Magnesium (1.6-2.3) mg/dL Alkaline Phosphatase (38-126) U/L Total Protein (6.3-8.2) g/dL Albumin (3.5-5.0) g/dL Crossmatch 07/29/18 07/29/18 07/29/18 Range/Units 17:03 17:04 18:05 WBC (3.8-10.6) k/uL RBC (4.30-5.90) m/uL Hgb (13.0-17.5) gm/dL Hct (39.0-53.0) % Plt Count (150-450) k/uL Neutrophils # (1.3-7.7) k/uL Lymphocytes # (1.0-4.8) k/uL PT (9.0-12.0) sec INR (<1.2) APTT (22.0-30.0) sec ABG pH 7.33 L (7.35-7.45) ABG pO2 (83-108) mmHg ABG Total CO2 (19-24) mmol/L ABG O2 Saturation 97.6 H (94-97) % Chloride (98-107) mmol/L Glucose (74-99) mg/dL POC Glucose (mg/dL) 173 H 155 H (75-99) mg/dL Calcium (8.4-10.2) mg/dL Magnesium (1.6-2.3) mg/dL Alkaline Phosphatase (38-126) U/L Total Protein (6.3-8.2) g/dL Albumin (3.5-5.0) g/dL Crossmatch 07/29/18 07/29/18 07/29/18 Range/Units 19:05 19:55 20:00 WBC 13.2 H (3.8-10.6) k/uL RBC 3.86 L (4.30-5.90) m/uL Hgb 12.5 L (13.0-17.5) gm/dL Hct 37.1 L (39.0-53.0) % Plt Count 139 L (150-450) k/uL Neutrophils # 12.1 H (1.3-7.7) k/uL Lymphocytes # 0.4 L (1.0-4.8) k/uL PT (9.0-12.0) sec INR (<1.2) APTT (22.0-30.0) sec ABG pH (7.35-7.45) ABG pO2 (83-108) mmHg ABG Total CO2 (19-24) mmol/L ABG O2 Saturation (94-97) % Chloride (98-107) mmol/L Glucose (74-99) mg/dL POC Glucose (mg/dL) 159 H 172 H (75-99) mg/dL Calcium (8.4-10.2) mg/dL Magnesium (1.6-2.3) mg/dL Alkaline Phosphatase (38-126) U/L Total Protein (6.3-8.2) g/dL Albumin (3.5-5.0) g/dL Crossmatch 07/29/18 07/29/18 07/29/18 Range/Units 21:11 22:17 23:01 WBC (3.8-10.6) k/uL RBC (4.30-5.90) m/uL Hgb (13.0-17.5) gm/dL Hct (39.0-53.0) % Plt Count (150-450) k/uL Neutrophils # (1.3-7.7) k/uL Lymphocytes # (1.0-4.8) k/uL PT (9.0-12.0) sec INR (<1.2) APTT (22.0-30.0) sec ABG pH (7.35-7.45) ABG pO2 (83-108) mmHg ABG Total CO2 (19-24) mmol/L ABG O2 Saturation (94-97) % Chloride (98-107) mmol/L Glucose (74-99) mg/dL POC Glucose (mg/dL) 153 H 141 H 153 H (75-99) mg/dL Calcium (8.4-10.2) mg/dL Magnesium (1.6-2.3) mg/dL Alkaline Phosphatase (38-126) U/L Total Protein (6.3-8.2) g/dL Albumin (3.5-5.0) g/dL Crossmatch 07/30/18 07/30/18 07/30/18 Range/Units 01:10 02:10 03:09 WBC (3.8-10.6) k/uL RBC (4.30-5.90) m/uL Hgb (13.0-17.5) gm/dL Hct (39.0-53.0) % Plt Count (150-450) k/uL Neutrophils # (1.3-7.7) k/uL Lymphocytes # (1.0-4.8) k/uL PT (9.0-12.0) sec INR (<1.2) APTT (22.0-30.0) sec ABG pH (7.35-7.45) ABG pO2 (83-108) mmHg ABG Total CO2 (19-24) mmol/L ABG O2 Saturation (94-97) % Chloride (98-107) mmol/L Glucose (74-99) mg/dL POC Glucose (mg/dL) 151 H 147 H 139 H (75-99) mg/dL Calcium (8.4-10.2) mg/dL Magnesium (1.6-2.3) mg/dL Alkaline Phosphatase (38-126) U/L Total Protein (6.3-8.2) g/dL Albumin (3.5-5.0) g/dL Crossmatch 07/30/18 07/30/18 07/30/18 Range/Units 04:05 04:05 04:09 WBC 12.9 H (3.8-10.6) k/uL RBC 3.82 L (4.30-5.90) m/uL Hgb 11.9 L (13.0-17.5) gm/dL Hct 36.6 L (39.0-53.0) % Plt Count 137 L (150-450) k/uL Neutrophils # 11.8 H (1.3-7.7) k/uL Lymphocytes # 0.4 L (1.0-4.8) k/uL PT (9.0-12.0) sec INR (<1.2) APTT (22.0-30.0) sec ABG pH (7.35-7.45) ABG pO2 (83-108) mmHg ABG Total CO2 (19-24) mmol/L ABG O2 Saturation (94-97) % Chloride (98-107) mmol/L Glucose 119 H (74-99) mg/dL POC Glucose (mg/dL) 123 H (75-99) mg/dL Calcium 8.2 L (8.4-10.2) mg/dL Magnesium (1.6-2.3) mg/dL Alkaline Phosphatase 30 L (38-126) U/L Total Protein 5.6 L (6.3-8.2) g/dL Albumin 3.2 L (3.5-5.0) g/dL Crossmatch 07/30/18 07/30/18 07/30/18 Range/Units 05:11 06:21 07:09 WBC (3.8-10.6) k/uL RBC (4.30-5.90) m/uL Hgb (13.0-17.5) gm/dL Hct (39.0-53.0) % Plt Count (150-450) k/uL Neutrophils # (1.3-7.7) k/uL Lymphocytes # (1.0-4.8) k/uL PT (9.0-12.0) sec INR (<1.2) APTT (22.0-30.0) sec ABG pH (7.35-7.45) ABG pO2 (83-108) mmHg ABG Total CO2 (19-24) mmol/L ABG O2 Saturation (94-97) % Chloride (98-107) mmol/L Glucose (74-99) mg/dL POC Glucose (mg/dL) 134 H 132 H 127 H (75-99) mg/dL Calcium (8.4-10.2) mg/dL Magnesium (1.6-2.3) mg/dL Alkaline Phosphatase (38-126) U/L Total Protein (6.3-8.2) g/dL Albumin (3.5-5.0) g/dL Crossmatch 07/30/18 07/30/18 07/30/18 Range/Units 08:41 10:00 11:19 WBC (3.8-10.6) k/uL RBC (4.30-5.90) m/uL Hgb (13.0-17.5) gm/dL Hct (39.0-53.0) % Plt Count (150-450) k/uL Neutrophils # (1.3-7.7) k/uL Lymphocytes # (1.0-4.8) k/uL PT (9.0-12.0) sec INR (<1.2) APTT (22.0-30.0) sec ABG pH (7.35-7.45) ABG pO2 (83-108) mmHg ABG Total CO2 (19-24) mmol/L ABG O2 Saturation (94-97) % Chloride (98-107) mmol/L Glucose (74-99) mg/dL POC Glucose (mg/dL) 130 H 125 H 132 H (75-99) mg/dL Calcium (8.4-10.2) mg/dL Magnesium (1.6-2.3) mg/dL Alkaline Phosphatase (38-126) U/L Total Protein (6.3-8.2) g/dL Albumin (3.5-5.0) g/dL Crossmatch 07/30/18 Range/Units 12:07 WBC (3.8-10.6) k/uL RBC (4.30-5.90) m/uL Hgb (13.0-17.5) gm/dL Hct (39.0-53.0) % Plt Count (150-450) k/uL Neutrophils # (1.3-7.7) k/uL Lymphocytes # (1.0-4.8) k/uL PT (9.0-12.0) sec INR (<1.2) APTT (22.0-30.0) sec ABG pH (7.35-7.45) ABG pO2 (83-108) mmHg ABG Total CO2 (19-24) mmol/L ABG O2 Saturation (94-97) % Chloride (98-107) mmol/L Glucose (74-99) mg/dL POC Glucose (mg/dL) 124 H (75-99) mg/dL Calcium (8.4-10.2) mg/dL Magnesium (1.6-2.3) mg/dL Alkaline Phosphatase (38-126) U/L Total Protein (6.3-8.2) g/dL Albumin (3.5-5.0) g/dL Crossmatch Assessment and Plan Plan: Post-operative anemia and thrombocytopenia, as anticipated -C/w daily CBCs -Monitor for signs of bleeding CAD s/p CABG -As per cardiothoracic surgery service -On Aspirin, Plavix, Amiodarone infusion, Nitroglycerin infusion -Insulin infusion as per protocol, FS within desired range; pre-op A1C 5.8 A-fib -Will hold Eliquis for now. Will resume as per the discretion of Cardiothoracic service. HTN -C/w Lopressor, increased to 25 mg po bid. Norvasc initiated to prevent radial spasms. HLD -C/w Pravachol DVT//GI proph -Heparin -Protonix
[2018-07-30 14:29] LABS: Glucose,Whole Blood 127 mg/dL (75-99)
[2018-07-30 16:42] LABS: Glucose,Whole Blood 114 mg/dL (75-99)
[2018-07-30 18:06] LABS: Glucose,Whole Blood 157 mg/dL (75-99)
[2018-07-30 19:15] LABS: Glucose,Whole Blood 124 mg/dL (75-99)
[2018-07-30 21:33] LABS: Glucose,Whole Blood 137 mg/dL (75-99)
[2018-07-30] MEDS: SENNOSIDES-DOCUSATE SODIUM 1 EACH TAB PO SCH (21:40)
[2018-07-30] MEDS: PRAVASTATIN SODIUM 80 MG TAB PO SCH (21:40)
[2018-07-30] MEDS: INSULIN ASPART 100 UNIT/ML 1 ML 10 ML VIAL SQ SCH (21:40)
[2018-07-30] MEDS: METOPROLOL TARTRATE 25 MG TAB PO SCH (21:40)
[2018-07-31] MEDS: KETOROLAC 30 MG/ML 1 ML VIAL IVP SCH ×4 (01:14→17:33)
[2018-07-31] MEDS: HEPARIN SODIUM,PORCINE 5,000 UNIT/ML 1 ML VIAL SQ SCH ×3 (01:15→17:34)
[2018-07-31] MEDS: ONDANSETRON 4 MG/2 ML VIAL IVP PRN (01:24)
[2018-07-31] MEDS: INSULIN ASPART 100 UNIT/ML 1 ML 10 ML VIAL SQ SCH ×5 (03:42→21:52)
[2018-07-31 04:43] LABS: Basophils % (A) 0 %; Eosinophils % (A) 0 %; HCT 35.2 % (39.0-53.0); HGB 11.9 gm/dL (13.0-17.5); Lymphocytes # (A) 0.9 k/uL (1.0-4.8); Lymphocytes % (A) 5 %; MCH 32.5 pg (25.0-35.0); MCHC 33.7 g/dL (31.0-37.0); MCV 96.4 fL (80.0-100.0); Monocytes # (A) 0.9 k/uL (0-1.0); Monocytes % (A) 5 %; Neutrophils # (A) 15.7 k/uL (1.3-7.7); Neutrophils % (A) 89 %; Platelet Count 133 k/uL (150-450); RBC 3.65 m/uL (4.30-5.90); RDW 12.5 % (11.5-15.5); WBC 17.8 k/uL (3.8-10.6)
[2018-07-31 04:52] LABS: Ionized Calcium 4.9 mg/dL (4.5-5.3)
[2018-07-31 05:08] LABS: ALT 22 U/L (21-72); AST 46 U/L (17-59); Albumin 3.4 g/dL (3.5-5.0); Alkaline Phosphatase 36 U/L (38-126); Anion Gap 8 mmol/L; Blood Urea Nitrogen 20 mg/dL (9-20); Calcium 8.6 mg/dL (8.4-10.2); Carbon Dioxide 23 mmol/L (22-30); Chloride 105 mmol/L (98-107); Glucose 134 mg/dL (74-99); Magnesium 2.2 mg/dL (1.6-2.3); Potassium 4.6 mmol/L (3.5-5.1); Sodium 136 mmol/L (137-145); Total Bilirubin 1.1 mg/dL (0.2-1.3); Total Protein 5.8 g/dL (6.3-8.2)
[2018-07-31] MEDS: LACTATED RINGERS 1,000 ML IV SCH (05:54)
--- NOTE | 2018-07-31 07:18 | XR ---
EXAMINATION TYPE: XR chest 1V portable DATE OF EXAM: 07/31/2018 CLINICAL HISTORY: Difficulty breathing progress study. Post open cardiac study. TECHNIQUE: Single AP portable semiupright view of the chest is obtained. COMPARISON: Chest x-ray from one day earlier and older studies. FINDINGS: There is interval removal of right internal jugular [place]-Anum catheter, cordis sheath shelley ins in place. There is interval removal of right-sided chest tube. There is stable left-sided chest t ube. Overlying epicardial pacer wires are redemonstrated. Post CABG changes with mediastinal clips an d sternal wires is again seen. Cardiac closure device superior left heart border is redemonstrated. No sizable pneumothorax is seen. Cardiac silhouette size is stable and enlarged with patchy bibasilar atelectasis and/or infiltrate. Osseous structures are intact. IMPRESSION: Interval removal of right-sided chest tube. No sizable pneumothorax. Stable cardiomegaly with bibasilar atelectasis and/or infiltrate noted.
[2018-07-31 07:38] LABS: Glucose,Whole Blood 137 mg/dL (75-99)
[2018-07-31] MEDS: IPRATROPIUM-ALBUTEROL 3 ML NEB INHALATION SCH ×4 (08:09→20:07)
[2018-07-31] MEDS: CLOPIDOGREL 75 MG TAB PO SCH (08:29)
[2018-07-31] MEDS: METOPROLOL TARTRATE 25 MG TAB PO SCH ×2 (08:29→21:30)
[2018-07-31] MEDS: ASPIRIN 325 MG TAB PO SCH (08:29)
[2018-07-31] MEDS: amLODIPine 5 MG TAB PO SCH (08:29)
[2018-07-31] MEDS: MUPIROCIN 2% OINT 22 GM TUBE NASAL SCH ×2 (08:31→21:32)
[2018-07-31] MEDS ORDERED: FUROSEMIDE 10 MG/ML 4 ML VIAL IV STA (08:43)
--- NOTE | 2018-07-31 09:06 | P.PN ---
Subjective Progress Note Date: 07/31/18 Principal diagnosis: Coronary artery disease status post coronary artery bypass grafting We are seeing the patient in Dr. Cline's absence for pulmonary and critical care management. This is a very pleasant 63-year-old gentleman with a known history of hyperlipidemia, hypertension, obstructive sleep apnea utilizing CPAP in the outpatient setting, previous tobacco dependence. The patient also has a history of atrial fibrillation status post cardioversion 07/12/2018. Following that he had ongoing issues with chest discomfort and EKG changes. He subsequently undergone cardiac catheterization on 07/25/2018 which revealed distal right coronary artery disease of 70%, PDA of 80% lesion, 70% of the obtuse marginal branch and proximal LAD with 7080% proximal lesion. He is now status post coronary artery bypass grafting utilizing a SIFUENTES to the LAD, left radial artery to the PDA. This is postoperative day #1. He is seen in the intensive care unit currently sitting up in a chair at the bedside. He is awake and alert in no acute distress. He is currently maintaining good O2 saturations in the mid 90s on room air. He's been afebrile. Hemodynamically stable. He has a lactated Ringer's IV at 50 MLS per hour. Chest x-ray reveals mild pulmonary vascular congestion and bibasilar areas of atelectasis. He is working well with the incentive spirometer. His chest tubes remain in place, left, right, mediastinal 2. [place]-Anum remains in place. PA pressure 24/19 with a mean of 20, cardiac output 8.5, cardiac index 4.2. On 07/31/2018 patient seen in follow-up in the intensive care unit, he sitting up in the chair, having some pain issues, as a hot pack on his left upper posterior chest, on room air, pulse ox is 96%, patient is afebrile. Maintenance IV fluid is LR at a rate of 30 ML per hour, lung sounds are diminished at the bases. Today's chest x-ray has been reviewed by Dr. Wise, showed interval removal of the right-sided chest tube, no pneumothorax, cardiomegaly with bibasilar atelectasis. His labs were reviewed, showed WBC of 17.8, hemoglobin of 11.9, sodium is 136, the rest of the electrolytes and renal profile were within normal limits. Patient still has the left chest tube in place with small serosanguineous output. Villed[place] catheter is in place, with urine output in order of 30-40 ML per hour. Objective - Vital Signs Vital signs: Vital Signs Temp 99.2 F 07/31/18 04:00 Pulse 70 07/31/18 08:21 Resp 21 07/31/18 07:01 BP 158/77 07/29/18 06:02 Pulse Ox 96 07/31/18 06:00 Intake & Output 07/30/18 07/31/18 07/31/18 18:59 06:59 18:59 Intake Total 1741.868 528.155 26 Output Total 425 467 30 Balance 1316.868 61.155 -4 Weight 87.1 kg Intake: IV 744.0 286 26 ACETAMINOPHEN IV (For NPO 200 ) 1,000 mg In Empty Bag 1 bag @ 400 mls/hr IVPB Q6HR TANA Rx#:[id number] CO/CI 40 Lactated Ringers 1,000 ml 420 220 20 @ 20 mls/hr IV .Q24H TANA Rx#:[id number] Nitroglycerin-D5w Pmx 50 3.0 mg In Dextrose/Water 1 250ml.bag @ 5 MCG/MIN 1.5 mls/hr IV .Q24H TANA Rx#: [id number] Pressure Bag 81 66 6 Intake, IV Titration 517.868 2.155 Amount Albumin Human 5% 250 ml 500 In Empty Bag 1 bag @ 250 mls/hr IVPB Q1HR PRN Rx#: [id number] Insulin Regular 100 unit 17.868 2.155 In Sodium Chloride 0.9% 100 ml @ Per Protocol IV .Q0M TANA Rx#:[id number] Oral 480 240 Output: Chest Tube Drainage 120 120 0 Left 40 120 0 MSx2 70 Right 10 Drainage 25 Left Wrist 25 Urine 280 347 30 Other: Voiding Method Indwelling Catheter Indwelling Catheter ABP, PAP, CO, CI - Last Documented Arterial Blood Pressure 101/48 Pulmonary Artery Pressure 24/19 Cardiac Output 8.5 Cardiac Index 4.2 - Exam GENERAL EXAM: Alert, fairly comfortable in no apparent distress. On room air. HEAD: Normocephalic. EYES: Normal reaction of pupils, equal size. NOSE: Clear with pink turbinates. THROAT: No erythema or exudates. NECK: No masses, no JVD. CHEST: tach, heart hugger in place, mediastinal chest tubes in place. Left chest tube in place, midsternal incision is clean dry and intact, stable LUNGS: Equal air entry with diminished breath sounds at the bases CVS: S1 and S2 normal with no audible murmur, regular rhythm. ABDOMEN: No hepatosplenomegaly, normal bowel sounds, no guarding or rigidity. SPINE: No scoliosis or deformity SKIN: No rashes CENTRAL NERVOUS SYSTEM: No focal deficits, tone is normal in all 4 extremities. EXTREMITIES: There is no peripheral edema. No clubbing, no cyanosis. Peripheral pulses are intact. EUGENIA drain in place left upper extremity. - Labs CBC & Chem 7: 07/31/18 04:20 07/31/18 04:20 Labs: Abnormal Lab Results - Last 24 Hours (Table) 07/30/18 07/30/18 07/30/18 Range/Units 10:00 11:19 12:07 WBC (3.8-10.6) k/uL RBC (4.30-5.90) m/uL Hgb (13.0-17.5) gm/dL Hct (39.0-53.0) % Plt Count (150-450) k/uL Neutrophils # (1.3-7.7) k/uL Lymphocytes # (1.0-4.8) k/uL Sodium (137-145) mmol/L Glucose (74-99) mg/dL POC Glucose (mg/dL) 125 H 132 H 124 H (75-99) mg/dL Alkaline Phosphatase (38-126) U/L Total Protein (6.3-8.2) g/dL Albumin (3.5-5.0) g/dL 07/30/18 07/30/18 07/30/18 Range/Units 14:15 16:14 17:51 WBC (3.8-10.6) k/uL RBC (4.30-5.90) m/uL Hgb (13.0-17.5) gm/dL Hct (39.0-53.0) % Plt Count (150-450) k/uL Neutrophils # (1.3-7.7) k/uL Lymphocytes # (1.0-4.8) k/uL Sodium (137-145) mmol/L Glucose (74-99) mg/dL POC Glucose (mg/dL) 127 H 114 H 157 H (75-99) mg/dL Alkaline Phosphatase (38-126) U/L Total Protein (6.3-8.2) g/dL Albumin (3.5-5.0) g/dL 07/30/18 07/30/18 07/31/18 Range/Units 19:11 21:30 04:20 WBC (3.8-10.6) k/uL RBC (4.30-5.90) m/uL Hgb (13.0-17.5) gm/dL Hct (39.0-53.0) % Plt Count (150-450) k/uL Neutrophils # (1.3-7.7) k/uL Lymphocytes # (1.0-4.8) k/uL Sodium 136 L (137-145) mmol/L Glucose 134 H (74-99) mg/dL POC Glucose (mg/dL) 124 H 137 H (75-99) mg/dL Alkaline Phosphatase 36 L (38-126) U/L Total Protein 5.8 L (6.3-8.2) g/dL Albumin 3.4 L (3.5-5.0) g/dL 07/31/18 07/31/18 Range/Units 04:20 07:18 WBC 17.8 H (3.8-10.6) k/uL RBC 3.65 L (4.30-5.90) m/uL Hgb 11.9 L (13.0-17.5) gm/dL Hct 35.2 L (39.0-53.0) % Plt Count 133 L (150-450) k/uL Neutrophils # 15.7 H (1.3-7.7) k/uL Lymphocytes # 0.9 L (1.0-4.8) k/uL Sodium (137-145) mmol/L Glucose (74-99) mg/dL POC Glucose (mg/dL) 137 H (75-99) mg/dL Alkaline Phosphatase (38-126) U/L Total Protein (6.3-8.2) g/dL Albumin (3.5-5.0) g/dL Assessment and Plan Plan: Assessment: #1 Coronary artery disease status post coronary artery bypass grafting utilizing a SIFUENTES to the LAD, left radial artery to the posterior descending artery. Postoperative day #2 #2 Atrial fibrillation status post cardioversion. #3 Hyperlipidemia. #4 History of hypertension. #5 History of obstructive sleep apnea utilizing CPAP in the outpatient setting. #6 Remote history of smoking. Plan: Today's chest x-ray was reviewed by Dr. Wise, showed bibasilar atelectasis. Continue encouraging deep breathing and coughing, maintain pain control. Encourage ambulation, anticipate removal of left-sided chest tube today. Labs were reviewed. Tinea with nebulized bronchodilators. We'll continue to follow I performed a history & physical examination of the patient and discussed their management with my nurse practitioner, Janell Alvarenga. I reviewed the nurse practitioner's note and agree with the documented findings and plan of care. Lung sounds are positive for diminished breath sounds. The findings and the impression was discussed with the patient. I attest to the documentation by the nurse practitioner. Time with Patient: Greater than 30
[2018-07-31] MEDS: PANTOPRAZOLE 40 MG TABLET PO SCH (09:57)
--- NOTE | 2018-07-31 09:57 | P.PN ---
Subjective Progress Note Date: 07/31/18 This 63-year-old gentleman is status post I to coronary bypass surgery. He seemed to be doing well except he started having left-sided chest pain with the cough, which appear to be pleuritic. Left chest tube is going to be taken out. Otherwise patient seems to be hemodynamically stable. His lab work showed white count elevation at 17,000. Hemoglobin is 11.9. His lites are within normal limits. BUN/creatinine are within normal limits. Lungs show some diminished breath sounds. Overall patient seemed to be doing well. Removing the left chest tube will help his chest pain. Objective - Vital Signs Vital signs: Vital Signs Temp 99.1 F 07/31/18 08:00 Pulse 75 07/31/18 09:00 Resp 26 H 07/31/18 09:00 BP 126/68 07/31/18 09:00 Pulse Ox 94 L 07/31/18 09:00 Intake & Output 07/30/18 07/31/18 07/31/18 18:59 06:59 18:59 Intake Total 1741.868 528.155 78 Output Total 425 467 115 Balance 1316.868 61.155 -37 Weight 87.1 kg Intake: IV 744.0 286 78 ACETAMINOPHEN IV (For NPO 200 ) 1,000 mg In Empty Bag 1 bag @ 400 mls/hr IVPB Q6HR [facility] Rx#:[id number] CO/CI 40 Lactated Ringers 1,000 ml 420 220 60 @ 20 mls/hr IV .Q24H [facility] Rx#:[id number] Nitroglycerin-D5w Pmx 50 3.0 mg In Dextrose/Water 1 250ml.bag @ 5 MCG/MIN 1.5 mls/hr IV .Q24H [facility] Rx#: [id number] Pressure Bag 81 66 18 Intake, IV Titration 517.868 2.155 Amount Albumin Human 5% 250 ml 500 In Empty Bag 1 bag @ 250 mls/hr IVPB Q1HR PRN Rx#: [id number] Insulin Regular 100 unit 17.868 2.155 In Sodium Chloride 0.9% 100 ml @ Per Protocol IV .Q0M [facility] Rx#:[id number] Oral 480 240 Output: Chest Tube Drainage 120 120 10 Left 40 120 10 MSx2 70 Right 10 Drainage 25 Left Wrist 25 Urine 280 347 105 Other: Voiding Method Indwelling Catheter Indwelling Catheter Indwelling Catheter ABP, PAP, CO, CI - Last Documented Arterial Blood Pressure 117/50 Pulmonary Artery Pressure 24/19 Cardiac Output 8.5 Cardiac Index 4.2 - Exam GENERAL EXAM: Patient is alert and oriented and doesn't appear to be in any acute distress HEENT: Normocephalic. Normal reaction of pupils, equal size, normal range of extraocular motion. No erythema or exudates in the throat. NECK: No masses, no nuchal rigidity. CHEST: Postsurgical LUNGS: Diminished breath sounds at bases HEART: S1 and S2 normal w ABDOMEN: No hepatosplenomegaly, normal bowel sounds, no guarding or rigidity. SKIN: No rashes CENTRAL NERVOUS SYSTEM: No focal deficits. EXTREMITIES: No cyanosis, clubbing or edema. - Labs CBC & Chem 7: 07/31/18 04:20 07/31/18 04:20 Labs: Abnormal Lab Results - Last 24 Hours (Table) 07/30/18 07/30/18 07/30/18 Range/Units 10:00 11:19 12:07 WBC (3.8-10.6) k/uL RBC (4.30-5.90) m/uL Hgb (13.0-17.5) gm/dL Hct (39.0-53.0) % Plt Count (150-450) k/uL Neutrophils # (1.3-7.7) k/uL Lymphocytes # (1.0-4.8) k/uL Sodium (137-145) mmol/L Glucose (74-99) mg/dL POC Glucose (mg/dL) 125 H 132 H 124 H (75-99) mg/dL Alkaline Phosphatase (38-126) U/L Total Protein (6.3-8.2) g/dL Albumin (3.5-5.0) g/dL 07/30/18 07/30/18 07/30/18 Range/Units 14:15 16:14 17:51 WBC (3.8-10.6) k/uL RBC (4.30-5.90) m/uL Hgb (13.0-17.5) gm/dL Hct (39.0-53.0) % Plt Count (150-450) k/uL Neutrophils # (1.3-7.7) k/uL Lymphocytes # (1.0-4.8) k/uL Sodium (137-145) mmol/L Glucose (74-99) mg/dL POC Glucose (mg/dL) 127 H 114 H 157 H (75-99) mg/dL Alkaline Phosphatase (38-126) U/L Total Protein (6.3-8.2) g/dL Albumin (3.5-5.0) g/dL 07/30/18 07/30/18 07/31/18 Range/Units 19:11 21:30 04:20 WBC (3.8-10.6) k/uL RBC (4.30-5.90) m/uL Hgb (13.0-17.5) gm/dL Hct (39.0-53.0) % Plt Count (150-450) k/uL Neutrophils # (1.3-7.7) k/uL Lymphocytes # (1.0-4.8) k/uL Sodium 136 L (137-145) mmol/L Glucose 134 H (74-99) mg/dL POC Glucose (mg/dL) 124 H 137 H (75-99) mg/dL Alkaline Phosphatase 36 L (38-126) U/L Total Protein 5.8 L (6.3-8.2) g/dL Albumin 3.4 L (3.5-5.0) g/dL 07/31/18 07/31/18 Range/Units 04:20 07:18 WBC 17.8 H (3.8-10.6) k/uL RBC 3.65 L (4.30-5.90) m/uL Hgb 11.9 L (13.0-17.5) gm/dL Hct 35.2 L (39.0-53.0) % Plt Count 133 L (150-450) k/uL Neutrophils # 15.7 H (1.3-7.7) k/uL Lymphocytes # 0.9 L (1.0-4.8) k/uL Sodium (137-145) mmol/L Glucose (74-99) mg/dL POC Glucose (mg/dL) 137 H (75-99) mg/dL Alkaline Phosphatase (38-126) U/L Total Protein (6.3-8.2) g/dL Albumin (3.5-5.0) g/dL Assessment and Plan (1) S/P CABG (coronary artery bypass graft) Current Visit: Yes Status: Acute Code(s): Z95.1 - PRESENCE OF AORTOCORONARY BYPASS GRAFT SNOMED Code(s): 472035335 (2) Coronary artery disease Current Visit: No Status: Acute Code(s): I25.10 - ATHSCL HEART DISEASE OF [place] CORONARY ARTERY W/O ANG PCTRS SNOMED Code(s): 22409915 (3) Dyslipidemia Current Visit: No Status: Acute Code(s): E78.5 - HYPERLIPIDEMIA, UNSPECIFIED SNOMED Code(s): 340171479 (4) History of nicotine dependence Current Visit: No Status: Acute Code(s): Z87.891 - PERSONAL HISTORY OF NICOTINE DEPENDENCE SNOMED Code(s): 279381522 (5) Hypertension Current Visit: No Status: Acute Code(s): I10 - ESSENTIAL (PRIMARY) HYPERTENSION SNOMED Code(s): 86456515 (6) Persistent atrial fibrillation Current Visit: Yes Status: Acute Code(s): I48.1 - PERSISTENT ATRIAL FIBRILLATION SNOMED Code(s): 779924288 Plan: Overall patient seemed to be doing very well. Left-sided chest jesika, Most probably muscular skeletal and hopefully will improve after removing the chest tube. Increase activity as tolerated. Incentive spirometry
--- NOTE | 2018-07-31 11:09 | P.PN ---
Subjective Progress Note Date: 07/31/18 Principal diagnosis: Double vessel coronary artery disease, preserved left ventricular function, preoperative paroxysmal atrial fibrillation, hypertension, hyperlipidemia, remote history of tobacco dependence quit smoking in 1974, obstructive sleep apnea with CPAP use at home and strong family history of coronary artery disease with his brother passing away at age 30 from a myocardial infarction. POD #2 double arterial coronary artery bypass grafting using the left internal mammary artery to left anterior descending coronary artery, the left radial artery from the aorta to the posterior descending coronary artery. Bilateral pulmonary vein isolation using the bipolar radiofrequency clamp from the Atricure. Exclusion of the left atrial appendage using a #40 mm Atriclip. Intraoperative transesophageal echocardiogram and epi-aortic scanning. Endoscopic harvesting of the left radial artery. Intraoperative graft flow measurement using the [employer] system. The Patient is sitting up to the bedside chair. He is in no acute distress. He currently complaining of pain to his left chest tube insertion site 5 out of 10 on the pain scale, he denies any complaints of shortness of breath at this time. He is on room air with oxygen saturations of 96%. He remains hemodynamically stable. He is only achieving 500 mL on his incentive spirometry as he reports due to the left chest tube insertion site pain. Objective - Vital Signs Vital signs: Vital Signs Temp 99.1 F 07/31/18 08:00 Pulse 70 07/31/18 10:00 Resp 28 H 07/31/18 10:00 BP 126/68 07/31/18 10:00 Pulse Ox 93 L 07/31/18 10:00 Intake & Output 07/30/18 07/31/18 07/31/18 18:59 06:59 18:59 Intake Total 1741.868 528.155 78 Output Total 425 467 115 Balance 1316.868 61.155 -37 Weight 87.1 kg Intake: IV 744.0 286 78 ACETAMINOPHEN IV (For NPO 200 ) 1,000 mg In Empty Bag 1 bag @ 400 mls/hr IVPB Q6HR [facility] Rx#:[id number] CO/CI 40 Lactated Ringers 1,000 ml 420 220 60 @ 20 mls/hr IV .Q24H [facility] Rx#:[id number] Nitroglycerin-D5w Pmx 50 3.0 mg In Dextrose/Water 1 250ml.bag @ 5 MCG/MIN 1.5 mls/hr IV .Q24H [facility] Rx#: [id number] Pressure Bag 81 66 18 Intake, IV Titration 517.868 2.155 Amount Albumin Human 5% 250 ml 500 In Empty Bag 1 bag @ 250 mls/hr IVPB Q1HR PRN Rx#: [id number] Insulin Regular 100 unit 17.868 2.155 In Sodium Chloride 0.9% 100 ml @ Per Protocol IV .Q0M [facility] Rx#:[id number] Oral 480 240 Output: Chest Tube Drainage 120 120 10 Left 40 120 10 MSx2 70 Right 10 Drainage 25 Left Wrist 25 Urine 280 347 105 Other: Voiding Method Indwelling Catheter Indwelling Catheter Indwelling Catheter ABP, PAP, CO, CI - Last Documented Arterial Blood Pressure 117/50 Pulmonary Artery Pressure 24/19 Cardiac Output 8.5 Cardiac Index 4.2 - Constitutional General appearance: Present: cooperative, no acute distress - Respiratory Details: Lung sounds are essentially clear throughout, diminished to his bilateral bases. Respirations are symmetrical and nonlabored. Oxygen saturation are 96% on room air. He is achieving 500 mL on his incentive spirometry. Left pleural chest tube remains in place to low continuous wall suction -20 cm H2O. No air leak is present. Draining thin serosanguineous drainage. 140 mL output in the last 24 hours. - Cardiovascular Details: Regular rhythm and rate. S1 and S2 present, negative for S3, gallop or murmur. Sternum is stable. Bedside telemetry showing normal sinus rhythm heart rate 70. Heart hugger is in place and he is demonstrating appropriate use. Atrial and ventricular epicardial pacemaker wires in place and grounded. Knee-high RILEY hose and sequential compression devices in place to his bilateral lower extremities. Right IJ Cordis in place and connected to continuous CVP monitoring, current CVP pressure is 15 mmHg. Right radial arterial line in place and functioning. - Gastrointestinal Gastrointestinal Comment(s): Abdomen is soft, nontender and nondistended. Active bowel sounds all 4 abdominal quadrants. Tolerating oral intake. Bowel movement this a.m. - Genitourinary Genitourinary Comment(s): Villeda catheter for accurate I&O. Draining clear yellow urine. - Integumentary Integumentary Comment(s): Skin is warm and dry. No clubbing or cyanosis present. Midline sternal incision is clean, dry and approximated. No drainage or redness present. Dressing is clean, dry and intact. Left radial harvest sites clean, dry and approximated. No drainage or redness present. - Neurologic Neurologic: Present: CNII-XII intact - Musculoskeletal Musculoskeletal: Present: gait normal, strength equal bilaterally - Psychiatric Psychiatric: Present: A&O x's 3, appropriate affect, intact judgment & insight - Allied health notes Allied health notes reviewed: nursing - Labs CBC & Chem 7: 07/31/18 04:20 07/31/18 04:20 Labs: Abnormal Lab Results - Last 24 Hours (Table) 07/30/18 07/30/18 07/30/18 Range/Units 11:19 12:07 14:15 WBC (3.8-10.6) k/uL RBC (4.30-5.90) m/uL Hgb (13.0-17.5) gm/dL Hct (39.0-53.0) % Plt Count (150-450) k/uL Neutrophils # (1.3-7.7) k/uL Lymphocytes # (1.0-4.8) k/uL Sodium (137-145) mmol/L Glucose (74-99) mg/dL POC Glucose (mg/dL) 132 H 124 H 127 H (75-99) mg/dL Alkaline Phosphatase (38-126) U/L Total Protein (6.3-8.2) g/dL Albumin (3.5-5.0) g/dL 07/30/18 07/30/18 07/30/18 Range/Units 16:14 17:51 19:11 WBC (3.8-10.6) k/uL RBC (4.30-5.90) m/uL Hgb (13.0-17.5) gm/dL Hct (39.0-53.0) % Plt Count (150-450) k/uL Neutrophils # (1.3-7.7) k/uL Lymphocytes # (1.0-4.8) k/uL Sodium (137-145) mmol/L Glucose (74-99) mg/dL POC Glucose (mg/dL) 114 H 157 H 124 H (75-99) mg/dL Alkaline Phosphatase (38-126) U/L Total Protein (6.3-8.2) g/dL Albumin (3.5-5.0) g/dL 07/30/18 07/31/18 07/31/18 Range/Units 21:30 04:20 04:20 WBC 17.8 H (3.8-10.6) k/uL RBC 3.65 L (4.30-5.90) m/uL Hgb 11.9 L (13.0-17.5) gm/dL Hct 35.2 L (39.0-53.0) % Plt Count 133 L (150-450) k/uL Neutrophils # 15.7 H (1.3-7.7) k/uL Lymphocytes # 0.9 L (1.0-4.8) k/uL Sodium 136 L (137-145) mmol/L Glucose 134 H (74-99) mg/dL POC Glucose (mg/dL) 137 H (75-99) mg/dL Alkaline Phosphatase 36 L (38-126) U/L Total Protein 5.8 L (6.3-8.2) g/dL Albumin 3.4 L (3.5-5.0) g/dL 07/31/18 Range/Units 07:18 WBC (3.8-10.6) k/uL RBC (4.30-5.90) m/uL Hgb (13.0-17.5) gm/dL Hct (39.0-53.0) % Plt Count (150-450) k/uL Neutrophils # (1.3-7.7) k/uL Lymphocytes # (1.0-4.8) k/uL Sodium (137-145) mmol/L Glucose (74-99) mg/dL POC Glucose (mg/dL) 137 H (75-99) mg/dL Alkaline Phosphatase (38-126) U/L Total Protein (6.3-8.2) g/dL Albumin (3.5-5.0) g/dL - Imaging and Cardiology Chest x-ray: report reviewed, image reviewed Assessment and Plan (1) Persistent atrial fibrillation Current Visit: Yes Status: Acute Code(s): I48.1 - PERSISTENT ATRIAL FIBRILLATION SNOMED Code(s): 911114901 (2) S/P CABG (coronary artery bypass graft) Current Visit: Yes Status: Acute Code(s): Z95.1 - PRESENCE OF AORTOCORONARY BYPASS GRAFT SNOMED Code(s): 888743272 (3) Coronary artery disease Current Visit: No Status: Acute Code(s): I25.10 - ATHSCL HEART DISEASE OF [place] CORONARY ARTERY W/O ANG PCTRS SNOMED Code(s): 55227805 (4) Dyslipidemia Current Visit: No Status: Acute Code(s): E78.5 - HYPERLIPIDEMIA, UNSPECIFIED SNOMED Code(s): 762334125 (5) Family history of coronary artery disease in brother Current Visit: No Status: Acute Code(s): Z82.49 - FAMILY HX OF [place]HE[place] HEART DIS AND OTH DIS OF THE CIRC SYS SNOMED Code(s): 512551570 (6) History of nicotine dependence Current Visit: No Status: Acute Code(s): Z87.891 - PERSONAL HISTORY OF NICOTINE DEPENDENCE SNOMED Code(s): 030729651 (7) Hypertension Current Visit: No Status: Acute Code(s): I10 - ESSENTIAL (PRIMARY) HYPERTENSION SNOMED Code(s): 54609414 (8) Obstructive sleep apnea on CPAP Current Visit: No Status: Acute Code(s): G47.33 - OBSTRUCTIVE SLEEP APNEA ( ADULT) (PEDIATRIC); Z99.89 - DEPENDENCE ON OTHER ENABLING MACHINES AND DEVICES SNOMED Code(s): 69870676 Plan: 1. Continue aspirin, statin, Plavix, beta andrei. Will increase metoprolol tartrate as tolerated. 2. Continue Norvasc 5 mg by mouth daily to prevent radial artery spasm. Do not discontinue Norvasc. 3. Wean O2 as tolerated. Encourage incentive spirometry 10 times every hour while awake. 4. Will monitor daily labs and chest x-rays. Electrolyte replacement per protocol. 5. Pain controlled current medication regimen. 6. Insulin management per primary care service. 7. GI prophylaxis with Protonix. DVT prophylaxis with subcu heparin, SCDs. 8. Left pleural chest tube discontinued without incident. Atrial and ventricular epicardial pacemaker wires removed without incident. 9. Discontinue right IJ Cordis and right radial arterial line. 10. Increase activity, ambulate in hallway. PT/OT/cardiac rehab following. 11. Transferr to [address] [place] [address] cardiac stepdown unit. 12. Lasix 40 mg IV 1 now. 13. More recommendations to follow based on patient's clinical course. Time with Patient: Greater than 30
[2018-07-31 12:14] LABS: Glucose,Whole Blood 129 mg/dL (75-99)
--- NOTE | 2018-07-31 13:53 | P.PN ---
Subjective Progress Note Date: 07/31/18 The patient is a 63 yo M with a PMH of HTN, HLD, JOCELINE on CPAP, paroxysmal A-fib s /p cardioversion on 07/12/18, with subsequent reversion to A-fib. The patient then underwent an elective cardiac cath on 07/25/18 showing multi-vessel disease with subsequent recommendation for revascularization surgery. The patient is POD # 2 from CABG w/ SIFUENTES to LAD and LRA to PDA. He was seen sitting in chair at the bedside on 07/31/18. He was in good spirits and endorsed only mild L chest pain which improved significantly since removal of the chest tube. He otherwise denied chest pain, SOB, palpitations, nausea, vomiting, dizziness, or dysuria. Objective - Vital Signs Vital signs: Vital Signs Temp 99.1 F 07/31/18 08:00 Pulse 72 07/31/18 11:54 Resp 20 07/31/18 11:00 BP 126/68 07/31/18 11:00 Pulse Ox 94 L 07/31/18 11:00 Intake & Output 07/30/18 07/31/18 07/31/18 18:59 06:59 18:59 Intake Total 1741.868 528.155 198 Output Total 425 467 590 Balance 1316.868 61.155 -392 Weight 87.1 kg Intake: IV 744.0 286 78 ACETAMINOPHEN IV (For NPO 200 ) 1,000 mg In Empty Bag 1 bag @ 400 mls/hr IVPB Q6HR [facility] Rx#:[id number] CO/CI 40 Lactated Ringers 1,000 ml 420 220 60 @ 20 mls/hr IV .Q24H [facility] Rx#:[id number] Nitroglycerin-D5w Pmx 50 3.0 mg In Dextrose/Water 1 250ml.bag @ 5 MCG/MIN 1.5 mls/hr IV .Q24H [facility] Rx#: [id number] Pressure Bag 81 66 18 Intake, IV Titration 517.868 2.155 Amount Albumin Human 5% 250 ml 500 In Empty Bag 1 bag @ 250 mls/hr IVPB Q1HR [facility] Rx#: [id number] Insulin Regular 100 unit 17.868 2.155 In Sodium Chloride 0.9% 100 ml @ Per Protocol IV .Q0M [facility] Rx#:[id number] Oral 480 240 120 Output: Chest Tube Drainage 120 120 10 Left 40 120 10 MSx2 70 Right 10 Drainage 25 Left Wrist 25 Urine 280 347 580 Other: Voiding Method Indwelling Catheter Indwelling Catheter Indwelling Catheter # Bowel Movements 1 ABP, PAP, CO, CI - Last Documented Arterial Blood Pressure 117/50 Pulmonary Artery Pressure 24/19 Cardiac Output 8.5 Cardiac Index 4.2 - Exam General: Non-toxic, in no acute distress, appears stated age HEENT: NC/AT, anicteric sclerae, moist conjunctiva, no lid-lag, PERRLA Cardiovascular: S1/S2 wnl, no murmurs, rubs, or gallops, chest hugger in place, post-surgical Lungs: Clear to auscultation, normal respiratory effort, no accessory muscle use Abdominal: Soft, nontender, non-distended, no guarding, rebound, or rigidity Skin: Warm, dry Extremities: No edema or contractures, L forearm drain removed Psychiatric: Alert and oriented to person, place and time, appropriate affect, Intact judgment Neuro: CN II-XII grossly intact, Moving all extremities spontaneously, no focal deficits noted - Labs CBC & Chem 7: 07/31/18 04:20 07/31/18 04:20 Labs: Abnormal Lab Results - Last 24 Hours (Table) 07/30/18 07/30/18 07/30/18 Range/Units 14:15 16:14 17:51 WBC (3.8-10.6) k/uL RBC (4.30-5.90) m/uL Hgb (13.0-17.5) gm/dL Hct (39.0-53.0) % Plt Count (150-450) k/uL Neutrophils # (1.3-7.7) k/uL Lymphocytes # (1.0-4.8) k/uL Sodium (137-145) mmol/L Glucose (74-99) mg/dL POC Glucose (mg/dL) 127 H 114 H 157 H (75-99) mg/dL Alkaline Phosphatase (38-126) U/L Total Protein (6.3-8.2) g/dL Albumin (3.5-5.0) g/dL 07/30/18 07/30/18 07/31/18 Range/Units 19:11 21:30 04:20 WBC (3.8-10.6) k/uL RBC (4.30-5.90) m/uL Hgb (13.0-17.5) gm/dL Hct (39.0-53.0) % Plt Count (150-450) k/uL Neutrophils # (1.3-7.7) k/uL Lymphocytes # (1.0-4.8) k/uL Sodium 136 L (137-145) mmol/L Glucose 134 H (74-99) mg/dL POC Glucose (mg/dL) 124 H 137 H (75-99) mg/dL Alkaline Phosphatase 36 L (38-126) U/L Total Protein 5.8 L (6.3-8.2) g/dL Albumin 3.4 L (3.5-5.0) g/dL 07/31/18 07/31/18 07/31/18 Range/Units 04:20 07:18 12:12 WBC 17.8 H (3.8-10.6) k/uL RBC 3.65 L (4.30-5.90) m/uL Hgb 11.9 L (13.0-17.5) gm/dL Hct 35.2 L (39.0-53.0) % Plt Count 133 L (150-450) k/uL Neutrophils # 15.7 H (1.3-7.7) k/uL Lymphocytes # 0.9 L (1.0-4.8) k/uL Sodium (137-145) mmol/L Glucose (74-99) mg/dL POC Glucose (mg/dL) 137 H 129 H (75-99) mg/dL Alkaline Phosphatase (38-126) U/L Total Protein (6.3-8.2) g/dL Albumin (3.5-5.0) g/dL Assessment and Plan Plan: Post-operative anemia and thrombocytopenia, as anticipated -C/w daily CBCs -Monitor for signs of bleeding CAD s/p CABG -As per cardiothoracic surgery service -On Aspirin, Plavix -Amiodarone and Nitroglycerin drips DCed -Insulin drip DCed -Vilelda catheter removed -Encouraged to continue using incentive spirometer A-fib -Will hold Eliquis for now. Will resume as per the discretion of Cardiothoracic service. HTN -C/w Lopressor, increased to 25 mg po bid. Norvasc initiated to prevent radial spasms. HLD -C/w Pravachol DVT//GI proph -Heparin -Protonix
[2018-07-31 17:19] LABS: Glucose,Whole Blood 109 mg/dL (75-99)
[2018-07-31 21:01] LABS: Glucose,Whole Blood 129 mg/dL (75-99)
[2018-07-31] MEDS: PRAVASTATIN SODIUM 80 MG TAB PO SCH (21:30)
[2018-07-31] MEDS: SENNOSIDES-DOCUSATE SODIUM 1 EACH TAB PO SCH (21:35)
[2018-07-31 21:50] VITALS: RESP 18
[2018-08-01] MEDS: KETOROLAC 30 MG/ML 1 ML VIAL IVP SCH ×4 (00:09→12:33)
[2018-08-01] MEDS: HEPARIN SODIUM,PORCINE 5,000 UNIT/ML 1 ML VIAL SQ SCH ×2 (00:10→09:35)
[2018-08-01 06:00] LABS: Glucose,Whole Blood 117 mg/dL (75-99)
[2018-08-01] MEDS: PANTOPRAZOLE 40 MG TABLET PO SCH (06:39)
[2018-08-01] MEDS: INSULIN ASPART 100 UNIT/ML 1 ML 10 ML VIAL SQ SCH ×4 (06:39→12:33)
[2018-08-01] MEDS ORDERED: ACETAMINOPHEN TAB 325 MG TAB PO PRN (07:20)
[2018-08-01 07:25] LABS: Basophils % (A) 0 %; Eosinophils # (A) 0.1 k/uL (0-0.7); Eosinophils % (A) 1 %; HCT 33.4 % (39.0-53.0); HGB 11.1 gm/dL (13.0-17.5); Lymphocytes % (A) 7 %; MCH 32.4 pg (25.0-35.0); MCHC 33.1 g/dL (31.0-37.0); MCV 97.9 fL (80.0-100.0); Mean Platelet Volume 8.3; Monocytes # (A) 0.7 k/uL (0-1.0); Monocytes % (A) 6 %; Neutrophils # (A) 11.1 k/uL (1.3-7.7); Neutrophils % (A) 85 %; Platelet Count 125 k/uL (150-450); RBC 3.41 m/uL (4.30-5.90); RDW 12.5 % (11.5-15.5); WBC 13.1 k/uL (3.8-10.6)
[2018-08-01 07:51] LABS: Anion Gap 6 mmol/L; Blood Urea Nitrogen 29 mg/dL (9-20); Calcium 8.4 mg/dL (8.4-10.2); Carbon Dioxide 26 mmol/L (22-30); Chloride 106 mmol/L (98-107); Glucose 107 mg/dL (74-99); Magnesium 2.4 mg/dL (1.6-2.3); Phosphorus 2.6 mg/dL (2.5-4.5); Potassium 4.4 mmol/L (3.5-5.1); Sodium 138 mmol/L (137-145)
--- NOTE | 2018-08-01 07:57 | XR ---
EXAMINATION TYPE: XR chest 2V DATE OF EXAM: 08/01/2018 COMPARISON: Prior chest x-ray 07/31/2018 HISTORY: Postop coronary artery bypass graft TECHNIQUE: Frontal and lateral views of the chest are obtained. FINDINGS: Right jugular central venous sheath has been removed as has the left chest tube. Patient i s post median sternotomy and atrial appendage clipping. Patchy basilar density is present, there is b lunting of the costophrenic angles. There are overlying cardiac leads. No evident pneumothorax. Heart size is stable. Epicardial pacing leads are not seen. IMPRESSION: Basilar atelectasis. No evident complication status post chest tube removal. There may b e minimal effusions.
[2018-08-01] MEDS: ASPIRIN 325 MG TAB PO SCH (09:35)
[2018-08-01] MEDS: IPRATROPIUM-ALBUTEROL 3 ML NEB INHALATION SCH (09:35)
[2018-08-01] MEDS: CLOPIDOGREL 75 MG TAB PO SCH (09:35)
[2018-08-01] MEDS: MUPIROCIN 2% OINT 22 GM TUBE NASAL SCH (09:35)
[2018-08-01] MEDS: METOPROLOL TARTRATE 25 MG TAB PO SCH (09:35)
[2018-08-01] MEDS: amLODIPine 5 MG TAB PO SCH (09:36)
[2018-08-01 11:15] LABS: Glucose,Whole Blood 98 mg/dL (75-99)
[2018-08-01 12:26] VITALS: BP 119/66; PULSE 70; TEMP 97.3
--- NOTE | 2018-08-01 12:31 | P.DS ---
Providers Date of admission: 07/29/18 05:31 Expected date of discharge: 08/01/18 Attending physician: Matthew Jaquez Consults: 07/29/18 13:24 Consult Physician Routine Consulting Provider: Diaz Cline Consult Reason/Comments: Vending Mechanic Consult: post cardiac surgery Do you want consulting provider notified?: Yes Consult Physician Routine Consulting Provider: Nancy Padilla Consult Reason/Comments: medical management Do you want consulting provider notified?: Yes Consult Physician Routine Consulting Provider: Melina Justice Consult Reason/Comments: Aba Tutor Consult: post cardiac surgery Do you want consulting provider notified?: Yes Primary care physician: Paddy Andrews MD - Discharge Diagnosis(es) (1) Persistent atrial fibrillation Current Visit: Yes Status: Acute (2) S/P CABG (coronary artery bypass graft) Current Visit: Yes Status: Acute (3) Coronary artery disease Current Visit: No Status: Acute (4) Dyslipidemia Current Visit: No Status: Acute (5) Family history of coronary artery disease in brother Current Visit: No Status: Acute (6) History of nicotine dependence Current Visit: No Status: Acute (7) Hypertension Current Visit: No Status: Acute (8) Obstructive sleep apnea on CPAP Current Visit: No Status: Acute Hospital Course: FINAL DIAGNOSIS: 1. Double vessel coronary artery disease 2. Preserved left ventricular function 3. Preoperative persistent paroxysmal atrial fibrillation, status post cardioversion on 07/12/2018 4. Hypertension 5. Hyperlipidemia 6. Remote history of tobacco dependence quit smoking in 1974 7. Obstructive sleep apnea with CPAP use at home 8. Strong family history of premature coronary artery disease with his brother passing away at age 30 from a myocardial infarction PRINCIPAL PROCEDURE: 1. Double arterial coronary artery bypass grafting using the left internal mammary artery to left anterior descending coronary artery, the left radial artery from the aorta to the posterior descending coronary artery. 2. Bilateral pulmonary vein isolation using the bipolar radiofrequency clamp from the Atricure. 3. Exclusion of the left atrial appendage using the #40 mm Atriclip. 4. Intraoperative transesophageal echocardiogram and epi-aortic scanning. 5. Endoscopic harvesting of the left radial artery. 6. Intraoperative graft flow measurement using the Medi-Stim system. HISTORY OF PRESENT ILLNESS: This is a 63-year-old gentleman who is followed by Dr. Paddy Andrews on an outpatient basis. He is a past medical history significant for hypertension, hyperlipidemia, persistent paroxysmal atrial fibrillation, status post cardioversion on 07/12/2018, remote history of tobacco dependence quit smoking in 1974, obstructive sleep apnea with CPAP use at home and strong family history of premature coronary artery disease with his brother from a myocardial infarction at age 30. The patient is also been followed by Dr. THOMAS uJstice [facility] for his atrial fibrillation. On 07/12/2018 the patient underwent elective successful cardioversion for persistent paroxysmal atrial fibrillation. Subsequently upon his follow-up visit with Dr. THOMAS Justice post cardioversion he was found to be back in atrial fibrillation. The patient was recommended to undergo an elective cardiac catheterization and on 07/25/2018 after obtaining consent underwent a left heart catheterization. Heart catheterization demonstrated a 75 % stenosis to his proximal left anterior descending coronary artery, a 50% stenosis to his circumflex coronary artery, a 70% stenosis to his obtuse marginal coronary artery, a 70% stenosis to his right coronary artery, and 80% stenosis to his posterior descending coronary artery and a 50% stenosis to his posterior lateral branch. Also during heart catheterization a left ventriculogram was completed which showed him to have a normal left ventricular size with no significant wall motion abnormality and ejection fraction of 60% without mitral valve regurgitation. Due to the patient's cardiac catheterization results a consult was placed to Dr. Matthew Jaquez from cardiothoracic surgery to evaluate the patient for possible myocardial rescue position surgery. Dr. Jaquez met in evaluated the patient and discussed with the patient and the patient's the risks and benefits of having myocardial revascularization surgery. Dr. Jaquez offered myocardial revascularization surgery to the patient on elective basis. Patient's wishes were to proceed with elective surgery. HOSPITAL COURSE: The patient was admitted to the hospital and after obtaining consent was taken to the operating room where Dr. Matthew Jaquez performed an elective double arterial coronary artery bypass grafting using the left internal mammary artery to the left anterior descending coronary artery, left radial artery from the aorta to the posterior descending coronary artery, bilateral pulmonary vein isolation using the bipolar radiofrequency clamp from the AtriCure, exclusion of his left atrial appendage using a #40 mm Atriclip, intraoperative transesophageal echocardiogram, epi-aortic scanning and intraoperative graft flow measurements using the Medi-Stim system and endoscopic harvesting of the left radial artery. Upon completion of his surgery the patient was transferred to the cardiovascular intensive care unit where he was recovered, monitored hemodynamically and where he progressed cardiac rehabilitation phase 1. He was extubated, all lines, tubes and supportive drips were discontinued when appropriate and he was transferred to [address] [place] [address] cardiac stepdown unit for further rehabilitation needs. His oxygen has been weaned off and he is maintaining good oxygen saturations on room air, he continues to work with physical, occupational therapy and cardiac rehabilitation , he has been tolerating an oral diet, his pain is well controlled and he is ready to be discharged home with [facility] care on postoperative day #3. He has received written and verbal instructions regarding his medications, activity restrictions, signs and symptoms requiring physician notification and his follow-up appointments. COMPLICATIONS: There were no postoperative complications. CONSULTATIONS: 1.Dr. THOMAS Justice for cardiology management. 2.Dr. Jimenez for medical management. 3.Dr. Cline for pulmonary and ventilator management. DISCHARGE INSTRUCTIONS: 1. No driving for 4 weeks, or until physician gives their ok. 2. The patient should sleep in their own bed, no medical bed needed. 3. Stairs are not an issue. If the bedroom is upstairs, it is advised that the patient go up at night and down in the morning for the first week. Go slowly, using handrail and take 1 step at a time. 4. RILEY hose are to be worn for 30 days or until physician discontinues. 5. Heart hugger is to be worn 100% of the time until physician discontinues.( except when showering) 6. No lifting, pushing, or pulling more than 10 pounds for 12 weeks. The physician will advise of any restriction changes. 7. The patient is expected to continue the prescribed walking program. 8. Continue pain control per as needed orders. 9. Continue with incentive spirometry and splinting/heart hugger until otherwise directed by the physician. 10. Must shower daily using liquid antibacterial soap and a separate white washcloth for each individual incision. 11. Routine sternal incision care, no ointments, lotions or powders on the incisions. 12. Please notify surgeon/nurse practitioner for temperature greater than 101F or purulent drainage from incisions 13. Prescriptions for first 30 days given per cardiac surgery service. After 30 days, all prescription refills obtained through cardiology/primary care physician. 14. A red arm and has been placed on this patient it should be worn for 30 days post surgery and will be removed by the cardiothoracic surgeons. If an ER visit is necessary, please make sure the number on the red arm band is called. 15. The patient will be discharged home on Norvasc 5 mg by mouth daily, please do not discontinue this as it is in place for radial artery spasm prevention. HOME HEALTH SERVICES TO PROVIDE: RN SKILLED HOME CARE SERVICES FOR POST-OP SURGICAL PATIENTS WITH THE FOLLOWING: Coronary Artery Bypass Surgery (CABG), Mitral Valve Replacement/ Repair ( MVR), Aortic Valve Replacement/Repair (AVR) RN TO CONTINUE EDUCATION FROM ``ROAD TO A HEALTH HEART PATIENT EDUCATION MANUAL" (GIVEN TO PATIENT IN THE HOSPITAL) MEDICATION RECONCILIATION WITH EDUCATION NEEDED ON FIRST HOME VISIT EMPHASIZE IMPORTANCE OF WEARING BREAST SUPPORT/HEART HUGGER ENCOURAGE USE OF INCENTIVE SPIROMETER 10 X EVERY HOUR WHILE AWAKE ENCOURAGE UTILIZATION OF LOWER EXTREMITY COMPRESSION STOCKINGS/RILEY HOSE and ELEVATE LEGS ABOVE LEVEL OF HEART WHILE AT REST. ENCOURAGE AMBULATION 3-5x/day INCREASING TOLERATES, WHILE AVOID EXTREMES IN TEMPERATURE FREQUENCY: RN TO OPEN THE PATIENT WITHIN 24 HOURS OF DISCHARGE FROM THE HOSPITAL WITH TELEHEALTH INSTALLED AT [facility], RN TO VISIT 2-3 X A WEEK FOR 4 WEEKS ESTABLISHED BY PATIENT NEEDS. LABORATORY: CBC, CMP TO BE DRAWN ON THE THIRD DAY HOME, , 08/04/2018 (RAN STAT) FAX RESULTS TO [phone]. TELEHEALTH PARAMETERS: WEIGHT: NOTIFY MD OF WEIGHT GAIN OF 2 LBS IN 24 HOURS OR 5 LBS IN ONE WEEK HR: NOTIFY MD OF HR <55 BPM OR HR>100 BPM BP: NOTIFY MD IF BP <90/55 OR BP>140/100 O2 SAT: NOTIFY MD IF PO2<93% ON ROOM AIR SEND TELEHEALTH REPORT TO [facility] AND CARDIOVASCULAR SURGEON THE FIRST WEEK OF CARE AND THEN BI-WEEKLY. PLEASE ADDITIONALLY COMMUNICATE ANY ABNORMALS AND NEW FINDINGS TO THE SURGEONS OFFICE. Plan - Discharge Summary Discharge Rx Participant: No New Discharge Prescriptions: New Acetaminophen Tab [Tylenol] 650 mg PO Q4HR PRN tab PRN Reason: Fever And/ Or Pain amLODIPine [Norvasc] 5 mg PO DAILY #30 tab Metoprolol Tartrate [Lopressor] 25 mg PO BID #60 tab Pantoprazole [Protonix] 40 mg PO AC-BRKFST #30 tablet. Continue Apixaban [Eliquis] 5 mg PO BID Aspirin EC [Ecotrin Low Dose] 81 mg PO DAILY Pravastatin Sodium [Pravachol] 80 mg PO HS #30 tab Discontinued Amiodarone [Cordarone] 200 mg PO BID Lisinopril 10 mg PO DAILY Metoprolol Tartrate [Lopressor] 12.5 mg PO HS Metoprolol Tartrate [Lopressor] 25 mg PO DAILY Discharge Medication List Apixaban [Eliquis] 5 mg PO BID 12/07/16 [History] Aspirin EC [Ecotrin Low Dose] 81 mg PO DAILY 07/29/18 [History] Acetaminophen Tab [Tylenol] 650 mg PO Q4HR PRN tab 08/01/18 [Rx] Metoprolol Tartrate [Lopressor] 25 mg PO BID #60 tab 08/01/18 [Rx] Pantoprazole [Protonix] 40 mg PO AC-BRKFST #30 tablet.dr 08/01/18 [Rx] Pravastatin Sodium [Pravachol] 80 mg PO HS #30 tab 08/01/18 [Rx] amLODIPine [Norvasc] 5 mg PO DAILY #30 tab 08/01/18 [Rx] Follow up Appointment(s)/Referral(s): Melina Justice MD [STAFF PHYSICIAN] - 2 Weeks (Offices are closed. Please call to make a follow up appointment.) Paddy Andrews MD [Primary Care Provider] - 1 Week (Offices are closed. Please call to make a follow up appointment.) Matthew Jaquez MD [STAFF PHYSICIAN] - 3 Weeks (Offices are closed. Please call to make a follow up appointment.) Liban Hernandez NPC [Nurse Practitioner] - 1 Week (Offices are closed. Please call to make a follow up appointment.) Stewart Justice MD [STAFF PHYSICIAN] - 1 Week (Offices are closed. Please call to make a follow up appointment.) Ambulatory/Diagnostic Orders: Complete Blood Count w/diff [LAB.AMB] Time Frame: 3 Days, Facility: [facility], Location: [facility] Comprehensive Metabolic Panel [LAB.AMB] Time Frame: 3 Days, Facility: [facility], Location: [facility] Patient Instructions/Handouts: Sternal Precautions (GEN), Coronary Artery Bypass Graft (DC) Activity/Diet/Wound Care/Special Instructions: DISCHARGE INSTRUCTIONS: 1. No driving for 4 weeks, or until physician gives their ok. 2. The patient should sleep in their own bed, no medical bed needed. 3. Stairs are not an issue. If the bedroom is upstairs, it is advised that the patient go up at night and down in the morning for the first week. Go slowly, using handrail and take 1 step at a time. 4. RILEY hose are to be worn for 30 days or until physician discontinues. 5. Heart hugger is to be worn 100% of the time until physician discontinues.( except when showering) 6. No lifting, pushing, or pulling more than 10 pounds for 12 weeks. The physician will advise of any restriction changes. 7. The patient is expected to continue the prescribed walking program. 8. Continue pain control per as needed orders. 9. Continue with incentive spirometry and splinting/heart hugger until otherwise directed by the physician. 10. Must shower daily using liquid antibacterial soap and a separate white washcloth for each individual incision. 11. Routine sternal incision care, no ointments, lotions or powders on the incisions. 12. Please notify surgeon/nurse practitioner for temperature greater than 101F or purulent drainage from incisions 13. Prescriptions for first 30 days given per cardiac surgery service. After 30 days, all prescription refills obtained through cardiology/primary care physician. 14. A red arm and has been placed on this patient it should be worn for 30 days post surgery and will be removed by the cardiothoracic surgeons. If an ER visit is necessary, please make sure the number on the red arm band is called. HOME HEALTH SERVICES TO PROVIDE: RN SKILLED HOME CARE SERVICES FOR POST-OP SURGICAL PATIENTS WITH THE FOLLOWING: Coronary Artery Bypass Surgery (CABG), Mitral Valve Replacement/ Repair ( MVR), Aortic Valve Replacement/Repair (AVR) RN TO CONTINUE EDUCATION FROM ``ROAD TO A HEALTH HEART PATIENT EDUCATION MANUAL" (GIVEN TO PATIENT IN THE HOSPITAL) MEDICATION RECONCILIATION WITH EDUCATION NEEDED ON FIRST HOME VISIT EMPHASIZE IMPORTANCE OF WEARING BREAST SUPPORT/HEART HUGGER ENCOURAGE USE OF INCENTIVE SPIROMETER 10 X EVERY HOUR WHILE AWAKE ENCOURAGE UTILIZATION OF LOWER EXTREMITY COMPRESSION STOCKINGS/RILEY HOSE and ELEVATE LEGS ABOVE LEVEL OF HEART WHILE AT REST. ENCOURAGE AMBULATION 3-5x/day INCREASING TOLERATES, WHILE AVOID EXTREMES IN TEMPERATURE FREQUENCY: RN TO OPEN THE PATIENT WITHIN 24 HOURS OF DISCHARGE FROM THE HOSPITAL WITH TELEHEALTH INSTALLED AT [facility], RN TO VISIT 2-3 X A WEEK FOR 4 WEEKS ESTABLISHED BY PATIENT NEEDS. LABORATORY: CBC, CMP TO BE DRAWN ON THE THIRD DAY HOME, 08/04/2018 (RAN STAT) FAX RESULTS TO [phone]. TELEHEALTH PARAMETERS: WEIGHT: NOTIFY MD OF WEIGHT GAIN OF 2 LBS IN 24 HOURS OR 5 LBS IN ONE WEEK HR: NOTIFY MD OF HR <55 BPM OR HR>100 BPM BP: NOTIFY MD IF BP <90/55 OR BP>140/100 O2 SAT: NOTIFY MD IF PO2<93% ON ROOM AIR SEND TELEHEALTH REPORT TO [facility] AND CARDIOVASCULAR SURGEON THE FIRST WEEK OF CARE AND THEN BI-WEEKLY. PLEASE ADDITIONALLY COMMUNICATE ANY ABNORMALS AND NEW FINDINGS TO THE SURGEONS OFFICE. Discharge Disposition: HOME WITH HOME HEALTH SERVICES
--- NOTE | 2018-08-01 13:17 | P.PN ---
Subjective Progress Note Date: 08/01/18 The patient is a 63 yo M with a PMH of HTN, HLD, JOCELINE on CPAP, paroxysmal A-fib s /p cardioversion on 07/12/18, with subsequent reversion to A-fib. The patient then underwent an elective cardiac cath on 07/25/18 showing multi-vessel disease with subsequent recommendation for revascularization surgery. The patient is POD # 3 from CABG w/ SIFUENTES to LAD and LRA to PDA. The patient was seen at the bedside on 08/01/18, sitting in a chair. He denied any active complaints aside from mild sternal pain w/ coughing. He denied SOB, palpitations, nausea, vomiting, diarrhea, fever, chills, dizziness, headache, weakness, or numbness. Objective - Vital Signs Vital signs: Vital Signs Temp 97.3 F L 08/01/18 12:00 Pulse 70 08/01/18 12:00 Resp 18 08/01/18 12:00 BP 119/66 08/01/18 12:00 Pulse Ox 98 08/01/18 12:00 Intake & Output 07/31/18 08/01/18 08/01/18 18:59 06:59 18:59 Intake Total 298 240 Output Total 590 600 Balance -292 -600 240 Weight 89.9 kg 89.2 kg Intake: IV 78 Lactated Ringers 1,000 ml 60 @ 20 mls/hr IV .Q24H [facility] Rx#:[id number] Pressure Bag 18 Oral 220 240 Output: Chest Tube Drainage 10 Left 10 Urine 580 600 Other: Voiding Method Indwelling Catheter Toilet Toilet # Voids 1 # Bowel Movements 1 ABP, PAP, CO, CI - Last Documented Arterial Blood Pressure 117/50 Pulmonary Artery Pressure 24/19 Cardiac Output 8.5 Cardiac Index 4.2 - Exam General: Non-toxic, in no acute distress, appears stated age HEENT: NC/AT, anicteric sclerae, moist conjunctiva, no lid-lag, PERRLA Cardiovascular: S1/S2 wnl, no murmurs, rubs, or gallops, chest hugger in place, post-surgical Lungs: Clear to auscultation, normal respiratory effort, no accessory muscle use Abdominal: Soft, nontender, non-distended, no guarding, rebound, or rigidity Skin: Warm, dry Extremities: No edema or contractures Psychiatric: Alert and oriented to person, place and time, appropriate affect, Intact judgment Neuro: CN II-XII grossly intact, Moving all extremities spontaneously, no focal deficits noted - Labs CBC & Chem 7: 08/01/18 06:38 08/01/18 06:38 Labs: Abnormal Lab Results - Last 24 Hours (Table) 07/31/18 07/31/18 08/01/18 Range/Units 17:04 20:57 05:59 WBC (3.8-10.6) k/uL RBC (4.30-5.90) m/uL Hgb (13.0-17.5) gm/dL Hct (39.0-53.0) % Plt Count (150-450) k/uL Neutrophils # (1.3-7.7) k/uL BUN (9-20) mg/dL Glucose (74-99) mg/dL POC Glucose (mg/dL) 109 H 129 H 117 H (75-99) mg/dL Magnesium (1.6-2.3) mg/dL 08/01/18 08/01/18 Range/Units 06:38 06:38 WBC 13.1 H (3.8-10.6) k/uL RBC 3.41 L (4.30-5.90) m/uL Hgb 11.1 L (13.0-17.5) gm/dL Hct 33.4 L (39.0-53.0) % Plt Count 125 L (150-450) k/uL Neutrophils # 11.1 H (1.3-7.7) k/uL BUN 29 H (9-20) mg/dL Glucose 107 H (74-99) mg/dL POC Glucose (mg/dL) (75-99) mg/dL Magnesium 2.4 H (1.6-2.3) mg/dL Assessment and Plan Plan: Post-operative anemia and thrombocytopenia, as anticipated -Stable -Monitor for signs of bleeding CAD s/p CABG -As per cardiothoracic surgery service -On Aspirin, Plavix -Amiodarone and Nitroglycerin drips DCed -Insulin drip DCed -Villeda catheter removed -Encouraged to continue using incentive spirometer -Pt likely for DC today A-fib -Will hold Eliquis for now. Will resume as per the discretion of Cardiothoracic service. HTN -C/w Lopressor, increased to 25 mg po bid. Norvasc initiated to prevent radial spasms. HLD -C/w Pravachol DVT//GI proph -Heparin -Protonix
[2018-08-01] MEDS ORDERED: APIXABAN 5 MG TAB PO SCH (21:00)
--- NOTE | 2018-08-01 21:31 | PN ---
PROGRESS NOTE He was seen on 08/01/2018 as I am covering for Dr. Cline. He is less short of breath. He has an IS up to 1,250. PHYSICAL EXAMINATION: Blood pressure is 119/66, respiratory rate 18, pulse rate of 70, temperature 97.3. HEENT is unremarkable. Chest reveals decreased breath sounds at the bases. Cardiovascular system reveals an S1, S2. Abdomen is soft. There is no pedal edema. White count is 13.1. Hemoglobin of 11.1. IMPRESSION: 1. Coronary artery disease status post coronary artery bypass. 2. Obstructive sleep apnea. 3. Paroxysmal atrial fibrillation. At this point in time, agree with discharge planning. Patient was counseled and encouraged to use his incentive spirometer and increase his activity level. He will follow up with Dr. Cline, his fireboat operator, within a week's time. Depending on how he does, we should make further changes to his care which can be done as an outpatient. [id number] / IJN: [id number] /
== END 2018-08-01 13:11 | disposition home health service (06) | DRG 236 ==
LOC: 2ORMAIN 05:31 → 2SICU 13:54 → 3SCARD 07-31 22:25
PROVIDERS: ADMIT Surgery; ATTEND Surgery
PROC: 02L70CK Occlusion of Left Atrial Appendage with Extraluminal Device, Open Approach (ICD-10-PCS; 2018-07-29)
PROC: 5A1221Z Performance of Cardiac Output, Continuous (ICD-10-PCS; 2018-07-29)
PROC: 30233N0 Transfusion of Autologous Red Blood Cells into Peripheral Vein, Percutaneous Approach (ICD-10-PCS; 2018-07-29)
PROC: 02100Z9 Bypass Coronary Artery, One Artery from Left Internal Mammary, Open Approach (ICD-10-PCS; principal; 2018-07-29 08:00)
PROC: 02100AW Bypass Coronary Artery, One Artery from Aorta with Autologous Arterial Tissue, Open Approach (ICD-10-PCS; 2018-07-29 08:00)
PROC: 03BC4ZZ Excision of Left Radial Artery, Percutaneous Endoscopic Approach (ICD-10-PCS; 2018-07-29 08:00)
DX: I25.10 Atherosclerotic heart disease of native coronary artery without angina pectoris (principal); D64.9 Anemia, unspecified; D69.6 Thrombocytopenia, unspecified; I48.1 Persistent atrial fibrillation; G47.33 Obstructive sleep apnea (adult) (pediatric); E78.5 Hyperlipidemia, unspecified; I11.9 Hypertensive heart disease without heart failure; Z82.49 Family history of ischemic heart disease and other diseases of the circulatory system; Z87.891 Personal history of nicotine dependence; Z99.89 Dependence on other enabling machines and devices; Z79.01 Long term (current) use of anticoagulants; Z79.82 Long term (current) use of aspirin; Z79.899 Other long term (current) drug therapy; Z88.0 Allergy status to penicillin; Z88.8 Allergy status to other drugs, medicaments and biological substances; Z98.890 Other specified postprocedural states
CPT/HCPCS: 71045; 71046; 80048; 80053; 80074; 82330; 82805; 83036; 83735; 84100; 85025; 85520; 85610; 85730; 86850; 86891; 86900; 86901; 86920; 94002; 94640

== ENCOUNTER → 2019-01-23 | Outpatient (CLI) | payer OTHER ==
--- NOTE | 2019-01-24 06:56 | MR ---
EXAMINATION TYPE: MR ankle LT wo con DATE OF EXAM: 01/23/2019 COMPARISON: None. HISTORY: Lt ankle pain evaluate peroneal tendon tear per order. Standard multiplanar, multisequence MRI departmental protocol Multiplanar, multisequence images of the left ankle were acquired. FINDINGS: Distal Achilles tendon is intact. Visualized portion of the plantar fascia is unremarkable. The flexor tendons are intact posterior medial aspect. Focal increased fluid signal surrounds the PT tendon at level of mid talus on axial image 18. The peroneus longus tendon appears intact with some surrounding fluid noted at level of lateral malle olus axial image 24. Peroneus brevis tendon is abnormal with thickening and surrounding fluid superio r to this axial image 32, there is some abnormal increased central signal at level of lateral malleol us sagittal image 6 where there becomes nonvisualization near level of superior calcaneus abnormal ap pearing tendon, marked increased signal and thinning is felt present axial images 14 through 17. Norm al-appearing distal tendon than is seen in redemonstrated beginning axial image 13 through 8 base of fifth metatarsal insertion. The anterior tibiofibular and the anterior talofibular ligaments are intact. Normal sinus tarsi fat is seen. Hindfoot and midfoot articulations are maintained. No suspicious osse ous edema. No significant soft tissue swelling. Ankle mortise symmetry preserved. IMPRESSION: High-grade tearing and tenosynovitis peroneal brevis tendon. Mild tenosynovitis of PL and FT tendons .
== END | disposition home or self-care (01) ==
LOC: RADMRIMAIN 19:23
PROVIDERS: ATTEND Orthopaedic Surgery Foot and Ankle Surgery
DX: S86.312A Strain of muscle(s) and tendon(s) of peroneal muscle group at lower leg level, left leg, initial encounter (principal); M65.872 Other synovitis and tenosynovitis, left ankle and foot